=== PATIENT | male | born 1945 | race Caucasian/White ===

== ENCOUNTER 2016-11-19 05:12 | Emergency (ER) | payer BC ==
[~2016-11-19] VITALS: Ht 170.2 cm; Wt 81.9 kg
[~2016-11-19 05:12] MED LIST: ASPI81TA28 PO; ATOR-24 PO; LISI-725 PO; LPR25 PO; MELO15TA3 PO; MULT-506 PO; TRAZ50TA35 PO
[2016-11-19 05:14] VITALS: Ht 170.2 cm; Wt 81.9 kg
[2016-11-19] MEDS ORDERED: ACETAMINOPHEN 500 MG TAB PO STA (05:31)
[2016-11-19] MEDS ORDERED: SODIUM CHLORIDE 0.9% 1000ML 1,000 ML IV STA ×2 (05:31→06:34)
--- NOTE | 2016-11-19 05:41 | EMERGENCY ROOM VISIT NOTE ---
History First contact with patient: 05:24 Chief Complaint: FEVER Stated Complaint: FEVER, NAUSEA X 2WKS History of Present Illness The patient is a 71 year old male who presents to the Emergency Room for evaluation of persistent viral like illness. He notes about 1-2 weeks of fatigue, body aches and nausea. Associated with fevers, weakness, lack of appetite and mild headache. Using Tylenol periodically for discomfort/fever. Seen by PCP several times over the last week with labs which he notes were unremarkable. Admits that he had rash over palms of hands last week which PCP treated with steroids which resolved them. Denies syncope, cp, sob, neck pain/ stiffness, nor other symptoms. Admits frequent bug bites and lives in [place]. No diarrhea/urinary symptoms. Nothing makes better nor worse. No immunocompromised issues. Patient had MOS surgery to right face/nose with no swelling, drainage, pain. Is not on any antibiotics. Review of Systems See HPI for pertinent positives & negatives. A total of 10 systems reviewed and were otherwise negative. Past Medical/Surgical History Medical Problems: (1) History of hypertension Surgical Problems: (1) H/O hernia repair (2) H/O shoulder surgery (3) S/P prostatectomy Family History Cancer Hypertension Social History Smoking Status: Never Smoker Alcohol Use: occasionally Drug Use: none Marital Status: single Housing Status: lives with family Occupation Status: employed Current/Historical Medications Scheduled Aspirin (Aspirin Ec), 81 MG PO DAILY Atorvastatin (Lipitor), 40 MG PO DAILY Doxycycline Hyclate (Morgidox [id number]), 100 MG PO BID Hydroxyzine Hcl (Atarax), 25 MG PO TID Lisinopril (Zestril), 20 MG PO QAM Metoprolol Tartrate (Lopressor), 25 MG PO BID Multivitamin (Multivitamin), 1 TAB PO QAM Prednisone (Deltasone), 20 MG PO DAILY/UD Trazodone Hcl (Trazodone), 50 MG PO HS Scheduled PRN Meloxicam (Mobic), 15 MG PO DAILY PRN for Pain Physical Exam Vital Signs Date Time Temp Pulse Resp B/P (MAP) Pulse Ox O2 Delivery O2 Flow Rate FiO2 11/19/16 08:48 70 18 130/88 97 11/19/16 06:31 37.6 83 18 135/87 97 Room Air 11/19/16 05:14 38.1 93 20 161/111 97 Room Air Physical Exam GENERAL: Patient is anxious appearing and in no acute distress. HEENT: No acute trauma, normocephalic atraumatic, mucous membranes moist, no nasal congestion, no scleral icterus. NECK: No stridor, no adenopathy, no meningismus, trachea is midline. LUNGS: No dyspnea. Clear to auscultation and equal bilaterally. No wheeze, no rhonchi. HEART: Regular rate and rhythm. No murmurs, rubs, gallops appreciated. ABDOMEN: Soft, nontender, bowel sounds positive, no masses appreciated, no peritonitis. BACK: No midline tenderness, no CVA tenderness EXTREMITIES: Normal motion all extremities, no cyanosis, no edema. NEUROLOGIC: Alert and oriented, no acute motor or sensory deficits, no focal weakness, cranial nerves grossly intact. SKIN: Bandage to right maximally and nose s/p recent MOS surgery. No rash, no jaundice, no diaphoresis. Medical Decision & Procedures ER Provider Diagnostic Interpretation: X ray results are stated below per my interpretation: Chest: 1 view: No infiltrate, no effusion, normal cardiac border. Laboratory Results 11/19/16 05:55 Red Blood Count 4.66, Mean Corpuscular Volume 92.3, Mean Corpuscular Hemoglobin 32.4, Mean Corpuscular Hemoglobin Concent 35.1, Mean Platelet Volume 10.8, Neutrophils (%) (Auto) 68.7, Lymphocytes (%) (Auto) 20.5, Monocytes (%) (Auto) 9.6, Eosinophils (%) (Auto) 0.2, Basophils (%) (Auto) 0.4, Neutrophils # (Auto) 3.72, Lymphocytes # (Auto) 1.11, Monocytes # (Auto) 0.52, Eosinophils # (Auto) 0.01, Basophils # (Auto) 0.02 11/19/16 05:55 Test 11/19/16 05:42 11/19/16 05:55 11/19/16 06:00 11/19/16 06:47 Urine Color DK YELLOW Urine Appearance CLEAR (CLEAR) Urine pH 6.0 (4.5-7.5) Urine Specific [place] 1.027 (1.000-1.030) Urine Protein 2+ (NEG) Urine Glucose (UA) NEG (NEG) Urine Ketones TRACE (NEG) Urine Occult Blood 2+ (NEG) Urine Nitrite NEG (NEG) Urine Bilirubin NEG (NEG) Urine Urobilinogen NEG (NEG) Urine Leukocyte Esterase NEG (NEG) Urine WBC (Auto) 1-5 /hpf (0-5) Urine RBC (Auto) 10-30 /hpf (0-4) Urine Hyaline Casts (Auto) 1-5 /lpf (0-5) Urine Epithelial Cells (Auto) 10-20 /lpf (0-5) Urine Bacteria (Auto) NEG (NEG) White Blood Count 5.41 K/uL (4.8-10.8) Red Blood Count 4.66 M/uL (4.7-6.1) Hemoglobin 15.1 g/dL (14.0-18.0) Hematocrit 43.0 % (42-52) Mean Corpuscular Volume 92.3 fL (80-100) Mean Corpuscular Hemoglobin 32.4 pg (25-34) Mean Corpuscular Hemoglobin Concent 35.1 g/dl (32-36) Platelet Count 71 K/uL (130-400) Mean Platelet Volume 10.8 fL (7.4-10.4) Neutrophils (%) (Auto) 68.7 % Lymphocytes (%) (Auto) 20.5 % Monocytes (%) (Auto) 9.6 % Eosinophils (%) (Auto) 0.2 % Basophils (%) (Auto) 0.4 % Neutrophils # (Auto) 3.72 K/uL (1.4-6.5) Lymphocytes # (Auto) 1.11 K/uL (1.2-3.4) Monocytes # (Auto) 0.52 K/uL (0.11-0.59) Eosinophils # (Auto) 0.01 K/uL (0-0.5) Basophils # (Auto) 0.02 K/uL (0-0.2) RDW Standard Deviation 47.7 fL (36.4-46.3) RDW Coefficient of Variation 14.1 % (11.5-14.5) Immature Granulocyte % (Auto) 0.6 % Immature Granulocyte # (Auto) 0.03 K/uL (0.00-0.02) Blood Smear Review Platelet Estimate DECREASED Red Blood Cell Morphology Unremarkable Erythrocyte Sedimentation Rate 19 mm/hr (0-14) Anion Gap 8.0 mmol/L (3-11) Est Creatinine Clear Calc Drug Dose 64.0 ml/min Estimated GFR () 78.4 Estimated GFR (Non- 67.7 BUN/Creatinine Ratio 15.0 (10-20) Calcium Level 8.0 mg/dl (8.5-10.1) Magnesium Level 1.8 mg/dl (1.8-2.4) Total Bilirubin 1.5 mg/dl (0.2-1) Direct Bilirubin 0.3 mg/dl (0-0.2) Aspartate Amino Transf (AST/SGOT) 38 U/L (15-37) Alanine Aminotransferase (ALT/SGPT) 59 U/L (12-78) Alkaline Phosphatase 77 U/L (45-117) Total Creatine Kinase 58 U/L (39-308) Creatine Kinase MB 1.0 ng/ml (0.5-3.6) Creatine Kinase MB Ratio 1.7 (0-3.0) Troponin I < 0.015 ng/ml (0-0.045) C-Reactive Protein 7.20 mg/dl (0-0.29) Total Protein 6.7 gm/dl (6.4-8.2) Albumin 2.8 gm/dl (3.4-5.0) Bedside Lactic Acid Venous 0.88 mmol/L (0.90-1.70) Prothrombin Time 12.1 SECONDS (9.0-12.0) Prothromb Time International Ratio 1.1 (0.9-1.1) Activated Partial Thromboplast Time 29.3 SECONDS (21.0-31.0) Partial Thromboplastin Ratio 1.1 Lyme Disease IgG Antibody NEG (NEG) Lyme Disease IgM Antibody NEG (NEG) Test 11/19/16 08:17 Medications Administered Medications (Trade) Dose Ordered Sig/Thierry Route Start Time Stop Time Status Last Admin Dose Admin Sodium Chloride 1,000 ml @ 999 mls/hr Q1H1M STAT IV 11/19/16 05:31 11/19/16 06:31 DC 11/19/16 05:53 999 MLS/HR Acetaminophen (Tylenol Tab) 1,000 mg NOW STAT PO 11/19/16 05:31 11/19/16 05:33 DC 11/19/16 05:54 1,000 MG Sodium Chloride 1,000 ml @ 999 mls/hr Q1H1M STAT IV 7/22/17 06:34 11/19/16 07:34 DC 11/19/16 07:10 999 MLS/HR Doxycycline Hyclate (Vibramycin Cap) 100 mg ONE STAT PO 11/19/16 08:01 11/19/16 08:02 DC 11/19/16 08:47 100 MG ECG Indication: nausea Rate (beats per minute): 90 Rhythm: normal sinus Findings: no acute ischemic change, no ectopy Medical Decision Differential: Viral, Pharyngitis, Cellulitis, Pneumonia, Influenza, Meningitis, Sepsis, Bacteremia, UTI/Pyelonephritis, Endocrine, Toxicologic, amongst other pathologies entertained. 71 yr old male with diffuse complaints with symptoms ongoing over the last week or two and already seen several times by PCP with labs done as outpatient. Treated with Prednisone due to rash that had been on palms of hands (now resolved). He has not been on Abx. He is febrile but overall looks well. Labs obtained including Lyme/Ehrl/RPR. Also blood cultures along with lactic acid which is negative. No significant murmur appreciated. Abdominal exam is benign. Lungs clear and CXR unremarkable. He has no evidence nuchal rigidity and exam is not consistent with meningitis. I do not feel LP indicated at this time. Awaiting lab return when signed out to Dr Justin. Medication Reconcilliation Current Medication List: was personally reviewed by me Blood Pressure Screening Patient's blood pressure: Elevated blood pressure Blood pressure disposition: Referred to PCP Impression Primary Impression: Fever Additional Impressions: Nausea Hypertension Thrombocytopenia Departure Information Dispostion Home / Self-Care Condition GOOD Prescriptions Doxycycline Hyclate (MORGIDOX [id number]) 100 Mg Cap 100 MG PO BID, #14 TAB Prov: Radha Justin M.D. 11/19/16 Referrals Martell Cantu DO (PCP) Patient Instructions [facility] Additional Instructions Your blood counts reveal a low Platelet count. You should follow closely with your primary care provider and have this rechecked as soon as possible. Extensive testing was done which was unremarkable, however there are limitations to that which can be done in the Emergency Department. You have been examined and treated today on an emergency basis only. This is not a substitute for, or an effort to provide, complete comprehensive medical care. It is impossible to recognize and treat all injuries or illnesses in a single emergency department visit. It is therefore important that you follow up closely with your Primary Physician. Call as soon as possible for an appointment so you can review all labs, imaging and other testing that you had. Return to Emergency Department, call 911 or seek immediate medical attention if you feel your symptoms are worsening. Problem Qualifiers
[2016-11-19] MEDS ORDERED: PRED-603 PO (06:08)
[2016-11-19] MEDS ORDERED: HYDR-3124 PO (06:21)
[2016-11-19 06:25] LABS: URINE APPEARANCE CLEAR (CLEAR); URINE BILIRUBIN NEG (NEG); URINE COLOR DK YELLOW; URINE SPECIFIC GRAVITY 1.027 (1.000-1.030); ZZUR CULT IF INDIC CLEAN CATCH NO
[2016-11-19 06:26] LABS: URINE NITRITE NEG (NEG); UROBILINOGEN NEG (NEG)
[2016-11-19 06:29] LABS: MANUAL MICROSCOPIC REQUIRED? NO; REVIEW REQ? NO
[2016-11-19 06:31] VITALS: TEMP 37.6
[2016-11-19 06:40] LABS: MEAN CELL VOLUME 92.3 fL (80-100); MEAN CORPUSCULAR HEMOGLOBIN 32.4 pg (25-34); MEAN CORPUSCULAR HGB CONC 35.1 g/dl (32-36); MEAN PLATELET VOLUME 10.8 fL (7.4-10.4); PLATELET COUNT 71 K/uL (130-400); RED BLOOD COUNT 4.66 M/uL (4.7-6.1); WHITE BLOOD COUNT 5.41 K/uL (4.8-10.8)
[2016-11-19 06:41] LABS: BASO % 0.4 %; BASO ABS # 0.02 K/uL (0-0.2); COMPLETE YES; EOS % 0.2 %; IG% 0.6 %; LYMPH % 20.5 %; LYMPH ABS # 1.11 K/uL (1.2-3.4); MONO % 9.6 %; PLT ESTIMATE DECREASED
[2016-11-19 07:04] LABS: ALKALINE PHOSPHATASE 77 U/L (45-117); ALT/SGPT 59 U/L (12-78); BLOOD UREA NITROGEN 16 mg/dl (7-18); CARBON DIOXIDE 24 mmol/L (21-32); CHLORIDE 104 mmol/L (98-107); GLUCOSE 100 mg/dl (70-99)
[2016-11-19 07:15] LABS: INR 1.1 (0.9-1.1); PARTIAL THROMBOPLASTIN RATIO 1.1; PROTHROMBIN TIME (PATIENT) 12.1 SECONDS (9.0-12.0)
[2016-11-19 07:33] LABS: SODIUM 136 mmol/L (136-145)
[2016-11-19 07:41] LABS: LYME DISEASE AB IGG NEG (NEG); LYME DISEASE AB IGM NEG (NEG)
[2016-11-19 07:42] LABS: AST/SGOT 38 U/L (15-37); CKMB/CK RATIO 1.7 (0-3.0); MAGNESIUM 1.8 mg/dl (1.8-2.4)
--- NOTE | 2016-11-19 07:44 | DIAGNOSTIC IMAGING REPORT ---
CHEST ONE VIEW PORTABLE CLINICAL HISTORY: Fever. Nausea. COMPARISON STUDY: Chest radiograph July 23, 2015. FINDINGS: There is no pneumothorax or pleural effusion. There is no consolidation to suggest pneumonia. Cardiomediastinal silhouette is normal. Left shoulder postoperative findings are noted. Severe osteoarthritis of the right glenohumeral joint is incidentally noted. IMPRESSION: No acute cardiopulmonary findings. Electronically signed by: Stewart Patel M.D. 11/19/2016 7:43 AM Dictated Date/Time: 11/19/2016 7:42 AM
[2016-11-19] MEDS ORDERED: DOXYCYCLINE HYCLATE 100 MG CAP PO STA (08:01)
[2016-11-19] MEDS ORDERED: DOXY1CAP PO (08:15)
[2016-11-19 08:48] VITALS: BP 130/88; PULSE 70; O2SAT 97
[2016-11-19 09:36] LABS: NEUT % 68.7 %
--- NOTE | 2016-11-19 14:26 | EMERGENCY ROOM VISIT NOTE ---
ED Visit Note First contact with patient: 07:06 This patient was evaluated and appeared to be in no significant distress. I did receive the patient in signout at the change of shift from Dr. Hsieh. Laboratory work reveals a thrombocytopenia, the patient has been suffering from low-grade fevers. He has no complaints of pain at this time. There is a concern over a tickborne illness such as anaplasmosis or [place] spotted fever. I did speak with Dr. Qiu of infectious disease for recommendations regarding workup. Most studies are pending at this time, the wind titers are negative. Patient will be placed on doxycycline 100 mg twice a day for 14 days. He was encouraged to follow up with his PCP this week for reevaluation and test results. He will return to the ER for worsening of symptoms or any medical concerns. Diagnosis: Fever, thrombocytopenia
[2016-11-22 01:13] LABS: RAPID PLASMA REAGIN NONREACTIVE (NONREACT)
[2016-11-26 21:59] LABS: EHRLICHIA CHAFF IGG AB <1:64 (<1:64); EHRLICHIA CHAFF IGM AB <1:20 (<1:20); R. TYPHI IgG AB Not Detected (Not Detected); R. TYPHI IgM AB Not Detected (Not Detected); RMSF IgM AB Not Detected (Not Detected)
[2016-11-30 20:34] LABS: ANAPLASMA PHAGOCYTOPHIL DNA DETECTED; ANAPLASMA PHAGOCYTOPHIL IGM <1:20 (<1:20); ANAPLASMA PHAGOCYTOPHIL INTERP Past Infection
== END 2016-11-19 08:49 | disposition home or self-care (01) ==
LOC: C.EDB 05:14
DX: R50.9 Fever, unspecified (principal); R11.0 Nausea; I10 Essential (primary) hypertension; D69.6 Thrombocytopenia, unspecified; Z90.79 Acquired absence of other genital organ(s); Z98.890 Other specified postprocedural states; Z82.49 Family history of ischemic heart disease and other diseases of the circulatory system; Z79.82 Long term (current) use of aspirin; Z79.899 Other long term (current) drug therapy

== ENCOUNTER → 2016-11-22 | Outpatient (CLI) | payer BC ==
[~2016-11-22] MED LIST changes: +DOXY1CAP PO; +HYDR-3124 PO; +PRED-603 PO
[2016-11-22 14:03] LABS: HEMATOCRIT 42.6 % (42-52); MEAN CELL VOLUME 92.8 fL (80-100); MEAN CORPUSCULAR HEMOGLOBIN 33.3 pg (25-34); MEAN CORPUSCULAR HGB CONC 35.9 g/dl (32-36); RED BLOOD COUNT 4.59 M/uL (4.7-6.1); WHITE BLOOD COUNT 11.03 K/uL (4.8-10.8)
[2016-11-22 14:23] LABS: PLATELET COUNT 74 K/uL (130-400)
[2016-11-22 15:17] LABS: BASO % 0.5 %; BASO ABS # 0.06 K/uL (0-0.2); COMPLETE YES; ECHINOCYTES 1+; EOS % 0.7 %; IG% 0.2 %; LYMPH % 51.4 %; LYMPH ABS # 5.67 K/uL (1.2-3.4); MEAN PLATELET VOLUME 11.2 fL (7.4-10.4); MONO % 6.4 %; NEUT % 40.8 %
== END | disposition home or self-care (01) ==
LOC: C.LABSPEC 13:32
PROVIDERS: ATTEND Family Medicine
DX: D69.6 Thrombocytopenia, unspecified (principal)

== ENCOUNTER 2017-07-18 10:51 | Inpatient (IN) | payer BC, OTHER ==
[2017-07-10 08:05] VITALS: BMI 29.0
--- NOTE | 2017-07-10 08:42 | PAT Medication Instructions ---
Service Date Jul 10, 2017. Current Home Medication List Aspirin (Aspirin Ec), 81 MG PO QAM Atorvastatin (Lipitor), 40 MG PO QPM Lisinopril (Zestril), 20 MG PO QAM Meloxicam (Mobic), 15 MG PO QPM Metoprolol Tartrate (Lopressor), 25 MG PO BID Multivitamin (Multivitamin), 1 TAB PO QAM Trazodone Hcl (Trazodone), 50 MG PO HS Medication Instructions For Your Scheduled Surgery -Contact your surgeon for instructions for: Meloxicam (Mobic), 15 MG PO QPM - Hold the following medications the morning of surgery: Lisinopril (Zestril), 20 MG PO QAM Multivitamin (Multivitamin), 1 TAB PO QAM - Take the following medications the morning of surgery with a sip of water: Aspirin (Aspirin Ec), 81 MG PO QAM Metoprolol Tartrate (Lopressor), 25 MG PO BID - Take the following medications as scheduled the night before surgery: Atorvastatin (Lipitor), 40 MG PO QPM Metoprolol Tartrate (Lopressor), 25 MG PO BID Trazodone Hcl (Trazodone), 50 MG PO HS If you have any questions please call us at [phone] or [phone] or [phone]
[2017-07-10 10:14] LABS: BASO % 0.6 %; BASO ABS # 0.05 K/uL (0-0.2); EOS % 7.1 %; EOS ABS # 0.63 K/uL (0-0.5); HEMATOCRIT 47.9 % (42-52); HEMOGLOBIN 16.9 g/dL (14.0-18.0); IG# 0.04 K/uL (0.00-0.02); LYMPH % 32.7 %; LYMPH ABS # 2.89 K/uL (1.2-3.4); MEAN CELL VOLUME 94.5 fL (80-100); MEAN CORPUSCULAR HEMOGLOBIN 33.3 pg (25-34); MEAN CORPUSCULAR HGB CONC 35.3 g/dl (32-36); MEAN PLATELET VOLUME 10.8 fL (7.4-10.4); MONO % 9.5 %; MONO ABS # 0.84 K/uL (0.11-0.59); NEUT % 49.6 %; NEUT ABS # 4.39 K/uL (1.4-6.5); PLATELET COUNT 150 K/uL (130-400); RED CELL DISTRIBUTION WIDTH CV 13.5 % (11.5-14.5); RED CELL DISTRIBUTION WIDTH SD 46.6 fL (36.4-46.3); WHITE BLOOD COUNT 8.84 K/uL (4.8-10.8)
[2017-07-10 10:24] LABS: PTT PATIENT 25.7 SECONDS (21.0-31.0)
[2017-07-10 10:59] LABS: ALBUMIN 3.8 gm/dl (3.4-5.0); CALCIUM 8.9 mg/dl (8.5-10.1); CREATININE 1.19 mg/dl (0.60-1.40); POTASSIUM 5.1 mmol/L (3.5-5.1)
[2017-07-10 11:02] LABS: HEMOGLOBIN A1C 5.5 % (4.5-5.6)
--- NOTE | 2017-07-11 15:19 | HISTORY & PHYSICAL EXAMINATION ---
DATE OF ADMISSION: 07/18/2017 CHIEF COMPLAINT: Right shoulder pain. HISTORY OF PRESENT ILLNESS: Mr. Gutierrez is a 71-year-old male with a 5-year history of right shoulder pain. The patient rates his pain a 6/10. He also has a significant decreased range of motion. He has had NSAIDs over the years without relief. He has failed conservative treatment and is scheduled for a right total shoulder versus resurfacing. PAST MEDICAL HISTORY: Hypertension, hypercholesterolemia and heart disease. He denies diabetes or DVT. PAST SURGICAL HISTORY: Left shoulder surgery, prostatectomy and hernia repair. SOCIAL HISTORY: The patient drinks 6 drinks per week. He denies tobacco use. He lives in a 2-maurilio home. 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 FAMILY HISTORY: Negative for DVT. MEDICATIONS: Lisinopril 20 mg, trazodone 50 mg, atorvastatin, Meloxicam and baby aspirin, Dilt/CD 120 mg daily. ALLERGIES: Indocin. REVIEW OF SYSTEMS: See HPI. Ten other systems reviewed, all negative. PHYSICAL EXAMINATION: VITAL SIGNS: Height 5 feet 7 inches, weight 184 pounds, BMI 29. GENERAL: This is a well-developed, well-nourished male who is alert and oriented x3. Mood and affect are appropriate. HEENT: Normocephalic, atraumatic. Mucous membranes are moist and intact. NECK: Supple without lymphadenopathy. HEART: Regular rate and rhythm without murmurs, rubs or gallops. LUNGS: Clear to auscultation without wheezes or rhonchi. ABDOMEN: Soft and nontender. Bowel sounds are equal and active. EXTREMITIES: No ecchymosis, redness or warmth. Range of motion of the shoulder is significantly decreased both in abduction and internal rotation. He is neurovascularly intact. X-RAY EXAMINATION: All 3 views of the shoulder confirmed joint space narrowing and osteophyte formation. IMPRESSION: Degenerative joint disease, right shoulder. PLAN: The patient will be admitted for a right total shoulder versus resurfacing with Dr. Rajput. [place]
[~2017-07-18] VITALS: Ht 170.2 cm; Wt 84.2 kg
[2017-07-18] MEDS: TRANEXAMIC ACID INJ 1,000 MG x 2 Bags IV SCH ×4 (06:00→06:30)
[~2017-07-18 10:51] MED LIST changes: +ACETAMINOPHEN 500 MG TAB PO SCH; +ATROPINE SULFATE 0.1 MG/ML 5ML SYR IV PRN; +CEFAZOLIN 2000MG IV PUSH 15 ML IV SCH; +CeleBREX 200 MG CAP PO SCH; +DEXAMETHASONE 4 MG TAB PO SCH; +DEXAMETHASONE SOD INJ 4 MG/ML VIAL ONE; -DOXY1CAP PO; +EpHEDrine SULFATE INJ 50 MG/ML AMP IV PRN; +FAMOTIDINE 20 MG TAB PO SCH; +FENTANYL CITRATE INJ 50 MCG/1 ML 2 ML VIAL IV PRN; +GABAPENTIN 300 MG CAP PO SCH; -HYDR-3124 PO; +HYDROmorphone INJ 1 MG/ML SYR IV PRN; +LABETALOL HCL IV 5 MG/ML 20ML IV PRN; +LACTATED RINGER'S 1000ML 1,000 ML IV SCH; +LACTATED RINGER'S 1000ML IV SCH; -MELO15TA3 PO; +MELO7.5T5 PO; +MEPERIDINE HCL 25 MG/ML CARP IV PRN; +METOCLOPRAMIDE HCL 10 MG TAB PO SCH; +ONDANSETRON INJ 2 MG/ML 2 ML VIAL IV PRN; -PRED-603 PO; +ROPIVACAINE 0.5% 5 MG/ML 30 ML VIAL ONE; +ROPIVACAINE 5MG/ML 30 ML 150 MG, BUPIVACAINE 0.5% MPF INJ 30 ML, EpINEphrine HCL INJ 0.... INFIL SCH
[2017-07-18] MEDS ORDERED: DEXAMETHASONE SOD INJ 4 MG/ML VIAL ONE (11:11)
[2017-07-18] MEDS ORDERED: ONDANSETRON INJ 2 MG/ML 2 ML VIAL ONE (11:11)
[2017-07-18] MEDS ORDERED: PROPOFOL IV EMULSION 10 MG/ML 20 ML VIAL IV ONE (11:11)
[2017-07-18] MEDS ORDERED: LIDOCAINE HCL 2% 2 ML VIAL (20MG/ML) ONE (11:11)
[2017-07-18] MEDS ORDERED: MIDAZOLAM HCL 1 MG/ML 2ML VIAL ONE (11:11)
[2017-07-18] MEDS ORDERED: PHENYLEPHRINE 100MCG/ML 5ML SYR ONE (11:11)
[2017-07-18] MEDS ORDERED: EpHEDrine SULFATE 50MG/5ML SYR ONE (11:11)
[2017-07-18] MEDS ORDERED: FENTANYL CITRATE INJ 50 MCG/1 ML 2 ML VIAL ONE (11:12)
--- NOTE | 2017-07-18 12:02 | History & Physical Bridge Note ---
H&P Re-Evaluation Bridge Note: I have examined the patient, reviewed the History & Physical and in the interval since the performance of the History & Physical I have noted the following changes of clinical significance: No changes noted
[2017-07-18 12:21] VITALS: BP 140/100; PULSE 77; TEMP 36.8; O2SAT 97; Ht 170.2 cm; Wt 84.2 kg
[2017-07-18] MEDS ORDERED: THROMBIN FOR SOLN 20000 UNIT KIT ONE (12:49)
[2017-07-18] MEDS ORDERED: BACITRACIN 50000 UNIT VIAL ONE (12:49)
[2017-07-18] MEDS ORDERED: ROCURONIUM BROMIDE 10 MG/ML 5 ML VIAL IV ONE (14:15)
[2017-07-18] MEDS ORDERED: NEOSTIGMINE METHYLSULFATE 5 MG/5 ML SYR ONE (14:30)
[2017-07-18] MEDS ORDERED: GLYCOPYRROLATE INJ 0.2 MG/ML VIAL ONE (14:30)
--- NOTE | 2017-07-18 14:52 | [facility] Post Operative Brief Note ---
Immediate Operative Summary Operative Date Jul 18, 2017. Pre-Operative Diagnosis Degenerative joint disease right shoulder. Post-Operative Diagnosis Same as preoperative diagnosis. Procedure(s) Performed Right Shoulder Tournier Resurfacing 43x[address] Rajput Backend Developer Surgeon(s) Sang Perkins PA-C Estimated Blood Loss 25ml Findings Consistent with Post-Op Diagnosis Specimens none per surgeon Anesthesia Type General Complication(s) none Disposition Disposition: Recovery Room / PACU
--- NOTE | 2017-07-18 14:55 | [facility] Operative Report ---
Operative Report Operative Date Jul 18, 2017. Pre-Operative Diagnosis Degenerative joint disease right shoulder. Post-Operative Diagnosis Same as preoperative diagnosis. Procedure(s) Performed Right Shoulder Tournier Resurfacing 43x[address] Rajput Bottle Dealer Surgeon(s) Sang Perkins PA-C Estimated Blood Loss 25ml Findings With severe end-stage degenerative changes involving the glenohumeral joint Patient presents with severe end-stage degenerative changes glenohumeral joint DJD subchondral sclerosis osteophytes marginal osteophytes Specimens none per surgeon Anesthesia Type General Complication(s) none Disposition Recovery Room / PACU Indications Patient presents after failing attempts at conservative management including physical therapy anti-inflammatories relative rest injections patient with severe global humeral DJD tournier hemiarthroplasty. Description of Procedure After proper prepping draping the right shoulder region anterior deltopectoral incision was made dissection carried down through subcu tissue to the root of the deltopectoral the cephalic vein was gently retracted lateralward with the deltoid anterior subscapularis was reflected off of the humeral head of biceps tendon was protected and retracted the humeral head was then subsequently externally rotated osteophytes were removed the size was dried to a size 43 x 12 gave excellent anatomic coverage was excellent stability substrate was reamed utilizing standard reverse femoral osteophytes removed utilizing number 5F FiberWire the sutures were placed to the anterior cortical aspect and to repair the subscapularis the final component was also brought to the field was gently more fit and tamped into position excellent stability was noted Mattix hemostasis obtained to maintain wounds are given cosmos of sterile saline solution subsequently the anterior subscapularis repair as well as rotator interval utilized #5 FiberWire and #0 Ethibond of the Lipitor was closed #2-0 Vicryl skin was closed with 3-0 Vicryl and skin clips a sterile compressive dressing was placed as well as a shoulder immobilizer based on residual taken recovery in stable condition Sang SANCHEZ was necessary for prepping draping retraction and closure of the fascia subcu skin was necessary for the case I attest to the content of the Intraoperative Record and any orders documented therein. Any exceptions are noted below.
[2017-07-18] MEDS ORDERED: D5W AND 1/2NSS + 20MEQ KCL 1,000 ML IV SCH (15:18)
[2017-07-18] MEDS ORDERED: ONDANSETRON INJ 2 MG/ML 2 ML VIAL IV PRN (15:30)
[2017-07-18] MEDS ORDERED: TRAMADOL HCL 50 MG TAB PO PRN (15:30)
[2017-07-18] MEDS ORDERED: MoRPHine SULFATE 2 MG/ML CARP IV PRN (15:30)
[2017-07-18] MEDS ORDERED: ALUMINUM/MAGNESIUM SUSP 30 ML UDC PO PRN (15:30)
[2017-07-18] MEDS ORDERED: MAGNESIUM HYDROXIDE SUSP 30 ML UDC PO PRN (15:30)
--- NOTE | 2017-07-18 16:04 | DIAGNOSTIC IMAGING REPORT ---
R SHOULDER MIN 2 VIEWS ROUTINE HISTORY: 71 years-old Male Post shoulder surgery right shoulder arthroplasty. Degenerative joint disease of the right shoulder COMPARISON: Chest radiograph 11/19/2016 TECHNIQUE: 2 views of the right shoulder. FINDINGS: Right shoulder arthroplasty with satisfactory alignment. The bones appear mildly demineralized. Moderate degenerative changes about the right AC joint. Expected postsurgical soft tissue swelling and deep tissue air about the right shoulder with skin jose. No acute fracture or retained foreign body identified. IMPRESSION: Right shoulder arthroplasty with satisfactory alignment. The above report was generated using voice recognition software. It may contain grammatical, syntax or spelling errors. Electronically signed by: Armaan Mancera M.D. 07/18/2017 4:03 PM Dictated Date/Time: 07/18/2017 4:01 PM
--- NOTE | 2017-07-18 16:11 | Anesthesiology Progress Note ---
Anesthesia Post Op Note Date & Time Jul 18, 2017 at 16:11 Vital Signs Pain Intensity: 0 Vital Signs Past 12 Hours Date Time Temp Pulse Resp B/P (MAP) Pulse Ox O2 Delivery O2 Flow Rate FiO2 07/18/17 16:05 36.5 72 16 148/90 98 Room Air 07/18/17 15:55 36.5 72 16 154/96 98 Room Air 07/18/17 15:45 36.5 79 16 149/96 96 Room Air 07/18/17 15:35 81 16 138/96 96 Room Air 07/18/17 15:25 87 16 131/90 100 Oxymask 10 07/18/17 15:15 78 16 142/94 100 Oxymask 10 07/18/17 15:09 36.4 87 16 170/99 100 Oxymask 10 07/18/17 12:21 36.8 77 16 140/100 97 Room Air Notes Mental Status: alert / awake / arousable, participated in evaluation Pt Amnestic to Procedure: Yes Nausea / Vomiting: adequately controlled Pain: adequately controlled Airway Patency, RR, SpO2: stable & adequate BP & HR: stable & adequate Hydration State: stable & adequate Anesthetic Complications: no major complications apparent
[2017-07-18 17:00] VITALS: BP 159/82; PULSE 83; TEMP 36.6; O2SAT 98
[2017-07-18 17:30] VITALS: BP 151/96; PULSE 79; TEMP 36.6; O2SAT 96
[2017-07-18 18:02] VITALS: BP 158/102; PULSE 86; TEMP 36.9; O2SAT 96
[2017-07-18 19:19] VITALS: BP 177/105; PULSE 105; TEMP 36.9; O2SAT 96
[2017-07-18 20:15] VITALS: BP 160/94; PULSE 99; TEMP 36.6; O2SAT 96
[2017-07-18] MEDS: D5W AND 1/2NSS 1,000 ML IV SCH (20:43)
[2017-07-18] MEDS: METOPROLOL TARTRATE 25 MG TAB PO SCH (20:44)
[2017-07-18] MEDS: OXYCODONE HCL IR 5 MG TAB (IMMEDIATE RELEASE) PO PRN (20:45)
[2017-07-18] MEDS: DOCUSATE SODIUM 100 MG CAP PO SCH (20:45)
[2017-07-18] MEDS: ACETAMINOPHEN 500 MG TAB PO SCH (20:46)
[2017-07-18] MEDS: CEFAZOLIN IV 2,000 MG in SYRINGE 0 ML IV SCH (20:49)
[2017-07-18] MEDS ORDERED: TRAZODONE HCL 50 MG TAB PO SCH (21:00)
[2017-07-18] MEDS ORDERED: ATORVASTATIN 40 MG TAB PO SCH (21:00)
[2017-07-19] VITALS (7 sets, daily range): BP systolic 136–157; BP diastolic 88–107; PULSE 70–80; TEMP 36.4–36.8; O2SAT 93–99
[2017-07-19] MEDS: OXYCODONE HCL IR 5 MG TAB (IMMEDIATE RELEASE) PO PRN ×4 (02:48→15:52)
[2017-07-19] MEDS: CEFAZOLIN IV 2,000 MG in SYRINGE 0 ML IV SCH (05:04)
[2017-07-19] MEDS: ACETAMINOPHEN 500 MG TAB PO SCH ×2 (05:04→13:50)
[2017-07-19] MEDS: D5W AND 1/2NSS 1,000 ML IV SCH ×2 (05:04→14:07)
--- NOTE | 2017-07-19 06:59 | Orthopedic Progress Note ---
Orthopedic Progress Note Date of Service Jul 19, 2017. Subjective Post OP Day: 1 Reports: feeling well, pain controlled w PO medications, Denies: complaints, chest pain, SOB, nausea / vomiting, light headedness Objective N/V intact, capillary refill less than 2 sec., dressing C/D/I, A&O x3 rad/med/ulnar nerves intact Date Time Temp Pulse Resp B/P (MAP) Pulse Ox O2 Delivery O2 Flow Rate FiO2 07/19/17 03:00 36.8 78 16 157/93 (114) 96 Room Air 07/19/17 00:39 36.7 76 16 143/88 (106) 96 Room Air 07/18/17 23:40 Room Air 07/18/17 20:15 36.6 99 18 160/94 (116) 96 Room Air 07/18/17 19:19 36.9 105 18 177/105 (129) 96 Room Air 07/18/17 18:02 36.9 86 18 158/102 (120) 96 Room Air 07/18/17 17:30 36.6 79 18 151/96 (114) 96 Room Air 07/18/17 17:00 Room Air 07/18/17 17:00 98 Room Air 07/18/17 17:00 36.6 83 16 159/82 (107) 98 Room Air 07/18/17 16:30 36.5 79 16 144/92 95 Room Air 07/18/17 16:15 36.5 72 16 145/97 98 Room Air 07/18/17 16:05 36.5 72 16 148/90 98 Room Air 07/18/17 15:55 36.5 72 16 154/96 98 Room Air 07/18/17 15:45 36.5 79 16 149/96 96 Room Air 07/18/17 15:35 81 16 138/96 96 Room Air 07/18/17 15:25 87 16 131/90 100 Oxymask 10 07/18/17 15:15 78 16 142/94 100 Oxymask 10 07/18/17 15:09 36.4 87 16 170/99 100 Oxymask 10 07/18/17 12:21 36.8 77 16 140/100 97 Room Air Laboratory Results 24 Hours: Test 07/19/17 06:48 Assessment & Plan Assessment: POD #1 s/p Right Shoulder Tournier Resurfacing 43x12 -pain well controlled -will plan for OPPT, discharge possibly later today after PT Discharge Planning Discharge Planning: home with oppt Therapy: Physical Therapy
--- NOTE | 2017-07-19 07:01 | Discharge Instructions ---
Discharge Instructions Date of Service Jul 19, 2017. Admission Reason for Admission: Right Shoulder Osteoarthritis Discharge Discharge Diagnosis / Problem: Right Shoulder Tournier Resurfacing 43x12 Discharge Goals Goal(s): Decrease discomfort, Improve function, Increase independence Activity Recommendations Activity Limitations: as noted below Shower/Bathe: may shower/bathe in 3 days, keep incision dry . Instructions / Follow-Up Instructions / Follow-Up ACTIVITY RECOMMENDATIONS: SELF CARE INSTRUCTIONS AFTER TOTAL SHOULDER ARTHROPLASTY A. You may do daily exercises as taught in physical therapy while in hospital. No lifting with the operative arm. Please schedule your outpatient physical therapy appointment to begin within 2-3 days after leaving the hospital. Specific restrictions will be written on your physical therapy prescription that is provided to you. B. You are to wear your sling/immobilizer at all times EXCEPT when performing your daily exercises, participating in physical therapy and for hygiene purposes. C. You may perform dry, daily dressing changes. Please keep your incision covered. You may shower 48 hours after surgery. Do not apply soap or any ointment/ lotions directly over incision. Do not soak incision in bath tub/swimming pool. D. You may use ice as needed to operative shoulder. SPECIAL CARE INSTRUCTIONS: MEDICATION INSTRUCTIONS: *It is recommended you take Aspirin 325mg daily for four weeks post-op. VERY IMPORTANT TO READ AND REVIEW A. There are a few signs you need to watch for after you are home. Call [facility] at [phone] if you experience any of the followin. Increased severe shoulder pain. Some pain is expected especially when you exercise. 2. Increased swelling in you shoulder or arm; pain or swelling in either upper extremity. 3. Any fluid drainage from the incision. 4. Shortness of breath or chest pain. B. Please call [facility] at [phone] if you have any questions or concerns about your operation or recovery. C. Call your physician if: 1. Temperature is greater than 101 degrees (F). 2. Pain is not relieved by prescribed pain medications. 3. Increase drainage or redness from incision. 4. Unanswered questions or concerns. FOLLOW UP VISIT: Please call [facility] at [phone] to schedule a follow up appointment with Dr. Rajput or his PA in 12-14 days from your surgery date. Current Hospital Diet Patient's current hospital diet: AHA Diet (Heart Healthy) Discharge Diet Recommended Diet: AHA Diet (Heart Healthy) Procedures Procedures Performed: Right Shoulder Tournier Resurfacing 43x12 Pending Studies Studies pending at discharge: no Laboratory Results Hemoglobin A1c Test 07/10/17 08:56 Range/Units Estimated Average Glucose 111 mg/dl Hemoglobin A1c 5.5 4.5-5.6 % Medical Emergencies . Who to Call and When: Medical Emergencies: If at any time you feel your situation is an emergency, please call 911 immediately. . Non-Emergent Contact Non-Emergency issues call your: Primary Care Provider, Surgeon . "Provider Documentation" section prepared by Anthony Sifuentes. . [place] Drug Monitoring Program Search Results: patient reviewed within database, no issues identified
[2017-07-19 07:13] LABS: HEMATOCRIT 44.7 % (42-52); HEMOGLOBIN 16.3 g/dL (14.0-18.0); MEAN CELL VOLUME 92.5 fL (80-100); MEAN CORPUSCULAR HEMOGLOBIN 33.7 pg (25-34); MEAN CORPUSCULAR HGB CONC 36.5 g/dl (32-36); PLATELET COUNT 139 K/uL (130-400); RED CELL DISTRIBUTION WIDTH CV 12.8 % (11.5-14.5); RED CELL DISTRIBUTION WIDTH SD 43.4 fL (36.4-46.3); WHITE BLOOD COUNT 15.73 K/uL (4.8-10.8)
[2017-07-19 07:37] LABS: CALCIUM 8.6 mg/dl (8.5-10.1); CREATININE 1.17 mg/dl (0.60-1.40); POTASSIUM 4.1 mmol/L (3.5-5.1)
[2017-07-19] MEDS: DOCUSATE SODIUM 100 MG CAP PO SCH (08:33)
[2017-07-19] MEDS: METOPROLOL TARTRATE 25 MG TAB PO SCH (08:33)
[2017-07-19] MEDS ORDERED: ASPIRIN 81 MG ECTAB PO SCH (09:00)
[2017-07-19] MEDS ORDERED: MULTIVITAMIN TAB PO SCH (09:00)
[2017-07-19] MEDS ORDERED: LISINOPRIL 20 MG TAB PO SCH (09:00)
--- NOTE | 2017-07-19 10:51 | Anesthesiology Progress Note ---
Anesthesia Post Op Note Date & Time Jul 19, 2017 at 10:51 Vital Signs Pain Intensity: 3.0 Vital Signs Past 12 Hours Date Time Temp Pulse Resp B/P (MAP) Pulse Ox O2 Delivery O2 Flow Rate FiO2 07/19/17 09:21 99 Room Air 07/19/17 09:09 137/91 (106) 07/19/17 07:51 36.4 80 18 150/107 (121) 99 Room Air 07/19/17 07:15 Room Air 07/19/17 03:00 36.8 78 16 157/93 (114) 96 Room Air 07/19/17 00:39 36.7 76 16 143/88 (106) 96 Room Air 07/18/17 23:40 Room Air Notes Mental Status: alert / awake / arousable, participated in evaluation Pt Amnestic to Procedure: Yes Nausea / Vomiting: adequately controlled Pain: adequately controlled Airway Patency, RR, SpO2: stable & adequate BP & HR: stable & adequate Hydration State: stable & adequate Anesthetic Complications: no major complications apparent
[2017-07-19] MEDS ORDERED: RXC5 PO (13:31)
[2017-07-19] MEDS ORDERED: CLB200 PO (13:31)
[2017-07-19] MEDS ORDERED: CLC100 PO (13:31)
[2017-07-19] MEDS ORDERED: ACET-24 PO (13:31)
[2017-07-19] MEDS ORDERED: ONDA-170 PO (13:31)
== END 2017-07-19 15:50 | disposition home or self-care (01) | DRG 508 ==
LOC: C.ACU 10:51 → C.3E 12:00 → ENRESERV 16:28
PROVIDERS: ADMIT Orthopaedic Surgery; ATTEND Orthopaedic Surgery
PROC: 0RUJ0JZ Supplement Right Shoulder Joint with Synthetic Substitute, Open Approach (ICD-10-PCS; principal; 2017-07-18 13:30)
DX: M19.011 Primary osteoarthritis, right shoulder (principal); M25.711 Osteophyte, right shoulder; I11.9 Hypertensive heart disease without heart failure; E78.00 Pure hypercholesterolemia, unspecified; Z79.899 Other long term (current) drug therapy; Z79.1 Long term (current) use of non-steroidal anti-inflammatories (NSAID); Z79.82 Long term (current) use of aspirin; Z88.6 Allergy status to analgesic agent

== ENCOUNTER → 2017-07-21 | Outpatient (CLI) | payer BC ==
[~2017-07-21] MED LIST changes: +ACET-1256 PO; +ACET-24 PO; -ACETAMINOPHEN 500 MG TAB PO SCH; -ATROPINE SULFATE 0.1 MG/ML 5ML SYR IV PRN; -CEFAZOLIN 2000MG IV PUSH 15 ML IV SCH; +CEPH500C PO; +CLB200 PO; +CLC100 PO; +CZR50 PO; -CeleBREX 200 MG CAP PO SCH; -DEXAMETHASONE 4 MG TAB PO SCH; -DEXAMETHASONE SOD INJ 4 MG/ML VIAL ONE; +DOCU100C31 PO; -EpHEDrine SULFATE INJ 50 MG/ML AMP IV PRN; -FAMOTIDINE 20 MG TAB PO SCH; -FENTANYL CITRATE INJ 50 MCG/1 ML 2 ML VIAL IV PRN; -GABAPENTIN 300 MG CAP PO SCH; -HYDROmorphone INJ 1 MG/ML SYR IV PRN; -LABETALOL HCL IV 5 MG/ML 20ML IV PRN; -LACTATED RINGER'S 1000ML 1,000 ML IV SCH; -LACTATED RINGER'S 1000ML IV SCH; -MELO7.5T5 PO; -MEPERIDINE HCL 25 MG/ML CARP IV PRN; -METOCLOPRAMIDE HCL 10 MG TAB PO SCH; +ONDA-170 PO; -ONDANSETRON INJ 2 MG/ML 2 ML VIAL IV PRN; +OXYC1CAP5 PO; -ROPIVACAINE 0.5% 5 MG/ML 30 ML VIAL ONE; -ROPIVACAINE 5MG/ML 30 ML 150 MG, BUPIVACAINE 0.5% MPF INJ 30 ML, EpINEphrine HCL INJ 0.... INFIL SCH; +RXC5 PO
[2017-07-21 16:44] LABS: BASO % 0.2 %; BASO ABS # 0.02 K/uL (0-0.2); EOS % 3.5 %; EOS ABS # 0.32 K/uL (0-0.5); HEMOGLOBIN 15.2 g/dL (14.0-18.0); IG# 0.03 K/uL (0.00-0.02); LYMPH % 18.2 %; LYMPH ABS # 1.66 K/uL (1.2-3.4); MEAN CELL VOLUME 93.7 fL (80-100); MEAN CORPUSCULAR HEMOGLOBIN 33.1 pg (25-34); MEAN CORPUSCULAR HGB CONC 35.3 g/dl (32-36); MEAN PLATELET VOLUME 10.3 fL (7.4-10.4); MONO ABS # 0.91 K/uL (0.11-0.59); NEUT % 67.8 %; NEUT ABS # 6.19 K/uL (1.4-6.5); PLATELET COUNT 144 K/uL (130-400); RED CELL DISTRIBUTION WIDTH CV 13.3 % (11.5-14.5); RED CELL DISTRIBUTION WIDTH SD 45.6 fL (36.4-46.3); WHITE BLOOD COUNT 9.13 K/uL (4.8-10.8)
[2017-07-21 17:11] LABS: ALBUMIN 3.4 gm/dl (3.4-5.0); ALT/SGPT 26 U/L (12-78); AST/SGOT 44 U/L (15-37); BLOOD UREA NITROGEN 17 mg/dl (7-18); CARBON DIOXIDE 27 mmol/L (21-32); CREATININE 1.18 mg/dl (0.60-1.40); GLUCOSE 87 mg/dl (70-99); POTASSIUM 4.2 mmol/L (3.5-5.1); SODIUM 135 mmol/L (136-145)
[2017-07-21 17:12] LABS: ALKALINE PHOSPHATASE 62 U/L (45-117); TOTAL PROTEIN 7.9 gm/dl (6.4-8.2)
[2017-07-26 15:32] LABS: ANA SCREEN TC 249X POSITIVE (NEGATIVE)
== END | disposition home or self-care (01) ==
LOC: C.LAB 16:00
PROVIDERS: ATTEND Family Medicine
DX: L95.9 Vasculitis limited to the skin, unspecified (principal)

== ENCOUNTER 2017-07-29 21:45 | Emergency (ER) | payer BC ==
[~2017-07-29] VITALS: Ht 170.2 cm; Wt 82.2 kg
[~2017-07-29 21:45] MED LIST changes: -ACET-1256 PO; -CEPH500C PO; -CZR50 PO; -DOCU100C31 PO; -OXYC1CAP5 PO
[2017-07-29 21:51] VITALS: TEMP 36.7; Ht 170.2 cm; Wt 82.2 kg
[2017-07-29 22:30] LABS: BASO % 0.4 %; BASO ABS # 0.03 K/uL (0-0.2); EOS % 6.4 %; EOS ABS # 0.55 K/uL (0-0.5); HEMATOCRIT 43.5 % (42-52); HEMOGLOBIN 15.4 g/dL (14.0-18.0); IG# 0.03 K/uL (0.00-0.02); LYMPH % 26.8 %; LYMPH ABS # 2.29 K/uL (1.2-3.4); MEAN CELL VOLUME 93.1 fL (80-100); MEAN CORPUSCULAR HGB CONC 35.4 g/dl (32-36); MEAN PLATELET VOLUME 9.3 fL (7.4-10.4); MONO % 7.5 %; MONO ABS # 0.64 K/uL (0.11-0.59); NEUT % 58.5 %; NEUT ABS # 4.99 K/uL (1.4-6.5); PLATELET COUNT 251 K/uL (130-400); RED CELL DISTRIBUTION WIDTH CV 12.8 % (11.5-14.5); RED CELL DISTRIBUTION WIDTH SD 43.2 fL (36.4-46.3); WHITE BLOOD COUNT 8.53 K/uL (4.8-10.8)
[2017-07-29] MEDS ORDERED: ONDA-170 PO (22:34)
[2017-07-29] MEDS ORDERED: CZR50 PO (22:34)
[2017-07-29] MEDS ORDERED: DOCU100C31 PO (22:34)
[2017-07-29] MEDS ORDERED: ACET-1256 PO (22:34)
[2017-07-29] MEDS ORDERED: OXYC1CAP5 PO (22:34)
[2017-07-29 22:44] LABS: PTT PATIENT 26.4 SECONDS (21.0-31.0)
[2017-07-29 22:50] LABS: ALBUMIN 3.5 gm/dl (3.4-5.0); CALCIUM 8.5 mg/dl (8.5-10.1); CREATININE 1.14 mg/dl (0.60-1.40); POTASSIUM 3.8 mmol/L (3.5-5.1)
[2017-07-29 22:52] LABS: TOTAL PROTEIN 7.7 gm/dl (6.4-8.2)
--- NOTE | 2017-07-29 23:17 | EMERGENCY ROOM VISIT NOTE ---
History Report prepared by Patricio: Juani Paula Under the Supervision of: Dr. Alireza Tamayo M.D. First contact with patient: 21:58 Chief Complaint: RASH Stated Complaint: HAD SHOULDER SURGERY-NOW HAS RASH ON R SIDE SHOULD History of Present Illness The patient is a 72 year old male who presents to the Emergency Room with complaints of a worsening rash on his right neck for two days. He recently had right shoulder surgery July 18, 2017 to repair bone spurs. He reports a rash that started out as a couple of spots two days ago. He notes the rash has been spreading throughout the day on his neck near his incision site. He notes the rash is itchy and burning. he notes that he took the dressing off his surgery site two days ago. He states that a week before surgery he noticed some dry spots on his legs. He reports after the surgery, the spots on his legs have improved. He is unsure if he is taking any antibiotics. He denies any fevers or chills. He has been applying Triamcinolone cream, prescribed by his fish flipper, to the legs and the also on his neck today. Source of History: patient Onset: two days ago Position: neck Quality: other (rash) Timing: worsening Associated Symptoms: No fevers, No chills Note: He notes the rash is itchy and burning Review of Systems See HPI for pertinent positives & negatives. A total of 10 systems reviewed and were otherwise negative. Past Medical & Surgical Medical Problems: (1) DJD of right shoulder (2) History of hypertension Surgical Problems: (1) H/O hernia repair (2) H/O shoulder surgery (3) S/P prostatectomy Family History Cancer Hypertension Social History Smoking Status: Never Smoker Alcohol Use: occasionally Drug Use: none Marital Status: single Housing Status: lives with family Occupation Status: employed Current/Historical Medications Scheduled Acetaminophen (Tylenol), 1,000 MG PO BID Aspirin (Aspirin Ec), 81 MG PO QAM Atorvastatin (Lipitor), 40 MG PO QPM Cephalexin Monohydrate (Keflex), 500 MG PO QID Docusate Sodium (Docusate Sodium), 100 MG PO BID Losartan Potassium (Losartan Potassium), 50 MG PO QAM Metoprolol Tartrate (Lopressor), 25 MG PO BID Multivitamin (Multivitamin), 1 TAB PO QAM Trazodone Hcl (Trazodone), 50 MG PO HS Scheduled PRN Ondansetron Hcl (Zofran), 8 MG PO Q8 PRN for Nausea Oxycodone Hcl (Oxycodone Hcl), 5 MG PO Q4H PRN for Pain Allergies Coded Allergies: Indomethacin (Verified Adverse Reaction, Unknown, anxiety, 07/29/17) Physical Exam Vital Signs Date Time Temp Pulse Resp B/P (MAP) Pulse Ox O2 Delivery O2 Flow Rate FiO2 07/29/17 23:45 65 16 175/116 96 Room Air 07/29/17 21:51 36.7 89 18 179/95 98 Room Air Physical Exam GENERAL: Patient is in no acute distress. HEENT: No acute trauma, normocephalic atraumatic, mucous membranes moist, no nasal congestion, no scleral icterus. NECK: No stridor, no adenopathy, no meningismus, trachea is midline. LUNGS: Clear to auscultation bilaterally, no wheeze, no rhonchi, breath sounds equal. HEART: Without murmurs gallops or rubs, regular rate and rhythm. ABDOMEN: Soft, nontender, bowel sounds positive, no hernias, no peritonitis. EXTREMITIES: Sebas over anterior right shoulder consistent with recent surgery , no evidence of wound infection. There is no LE edema. NEUROLOGIC: Oriented x 3, no acute motor or sensory deficits, no focal weakness. SKIN: Flat erythematous rash to the right neck in the area of the clavicle, no vesicles, no drainage. Petechial appearing rash to lower extremities, some areas do bridger, other do not, no drainage. Medical Decision & Procedures Laboratory Results 07/29/17 22:15 Red Blood Count 4.67, Mean Corpuscular Volume 93.1, Mean Corpuscular Hemoglobin 33.0, Mean Corpuscular Hemoglobin Concent 35.4, Mean Platelet Volume 9.3, Neutrophils (%) (Auto) 58.5, Lymphocytes (%) (Auto) 26.8, Monocytes (%) (Auto) 7.5, Eosinophils (%) (Auto) 6.4, Basophils (%) (Auto) 0.4, Neutrophils # (Auto) 4.99, Lymphocytes # (Auto) 2.29, Monocytes # (Auto) 0.64, Eosinophils # (Auto) 0.55, Basophils # (Auto) 0.03 07/29/17 22:15 Test 07/29/17 22:15 White Blood Count 8.53 K/uL (4.8-10.8) Red Blood Count 4.67 M/uL (4.7-6.1) Hemoglobin 15.4 g/dL (14.0-18.0) Hematocrit 43.5 % (42-52) Mean Corpuscular Volume 93.1 fL (80-100) Mean Corpuscular Hemoglobin 33.0 pg (25-34) Mean Corpuscular Hemoglobin Concent 35.4 g/dl (32-36) Platelet Count 251 K/uL (130-400) Mean Platelet Volume 9.3 fL (7.4-10.4) Neutrophils (%) (Auto) 58.5 % Lymphocytes (%) (Auto) 26.8 % Monocytes (%) (Auto) 7.5 % Eosinophils (%) (Auto) 6.4 % Basophils (%) (Auto) 0.4 % Neutrophils # (Auto) 4.99 K/uL (1.4-6.5) Lymphocytes # (Auto) 2.29 K/uL (1.2-3.4) Monocytes # (Auto) 0.64 K/uL (0.11-0.59) Eosinophils # (Auto) 0.55 K/uL (0-0.5) Basophils # (Auto) 0.03 K/uL (0-0.2) RDW Standard Deviation 43.2 fL (36.4-46.3) RDW Coefficient of Variation 12.8 % (11.5-14.5) Immature Granulocyte % (Auto) 0.4 % Immature Granulocyte # (Auto) 0.03 K/uL (0.00-0.02) Erythrocyte Sedimentation Rate 24 mm/hr (0-14) Prothrombin Time 10.6 SECONDS (9.0-12.0) Prothromb Time International Ratio 1.0 (0.9-1.1) Activated Partial Thromboplast Time 26.4 SECONDS (21.0-31.0) Partial Thromboplastin Ratio 1.0 Anion Gap 4.0 mmol/L (3-11) Est Creatinine Clear Calc Drug Dose 61.0 ml/min Estimated GFR () 74.6 Estimated GFR (Non- 64.3 BUN/Creatinine Ratio 12.6 (10-20) Calcium Level 8.5 mg/dl (8.5-10.1) Total Bilirubin 0.4 mg/dl (0.2-1) Aspartate Amino Transf (AST/SGOT) 28 U/L (15-37) Alanine Aminotransferase (ALT/SGPT) 31 U/L (12-78) Alkaline Phosphatase 91 U/L (45-117) C-Reactive Protein 0.79 mg/dl (0-0.29) Total Protein 7.7 gm/dl (6.4-8.2) Albumin 3.5 gm/dl (3.4-5.0) Globulin 4.2 gm/dl (2.5-4.0) Albumin/Globulin Ratio 0.8 (0.9-2) Laboratory results reviewed by me. Medications Administered Medications (Trade) Dose Ordered Sig/Thierry Route Start Time Stop Time Status Last Admin Dose Admin Diphenhydramine HCl (Benadryl Cap) 25 mg NOW ONCE PO 07/29/17 22:15 07/29/17 22:16 DC 07/29/17 22:10 25 MG Ceftriaxone Sodium (Rocephin Inj) 1 gm NOW STAT IV 07/29/17 23:27 07/29/17 23:28 DC 07/29/17 23:43 1 GM ED Course 2158: The patient was evaluated in room C6. A complete history and physical exam was performed. 5: Ordered Benadryl 35 mg PO 2321: I reassessed the patient at this time. The rash has not improved and appears about the same. He notes the itching is somewhat better, but the burning sensation is still present. I discussed the results and treatment plan with the patient. I answered all pertaining questions that he had. He expressed understanding and verbalized agreement. The patient will be discharged home. 7: Ordered Rocephin 1 gm IV Medical Decision The patient is a 72 year old male who presents to the ED with complaints of rash. Differential diagnoses considered include cellulitis, allergic reaction, wound infection, medication reaction, zoster, and thrombocytopenia. There is no leukocytosis or concerning anemia. No significant electrolyte abnormality, kidney failure or hepatitis. There is no coagulopathy. Sed rate and CRP are slightly elevated but improved compared to previous testing. On exam, the patient was not febrile or toxic. He was somewhat hypertensive, he carries a history of this and seemed somewhat anxious. The patient received oral Benadryl. He was given IV ceftriaxone. The patient is being discharged on Keflex for the possibility of an early cellulitis. This rash along the neck may actually be a reaction from tape but, as it is very close to his wound, I do think antibiotic coverage would be warranted. Patient will return here for any fever, worsening rash or worsening illness. He will see his surgeon in a few days for a recheck. He was felt stable for discharge. He can follow with his doctor's office for his elevated blood pressure. He is asymptomatic with the higher blood pressure. Medication Reconcilliation Current Medication List: was personally reviewed by me Blood Pressure Screening Patient's blood pressure: Elevated blood pressure Blood pressure disposition: Referred to PCP Impression Primary Impression: Cellulitis Scribe Attestation The scribe's documentation has been prepared under my direction and personally reviewed by me in its entirety. I confirm that the note above accurately reflects all work, treatment, procedures, and medical decision making performed by me. Departure Information Dispostion Home / Self-Care Prescriptions Cephalexin Monohydrate (Keflex) 500 Mg Cap 500 MG PO QID, #28 CAP Prov: Alireza Tamayo M.D. 07/29/17 Referrals Martell Cantu DO (PCP) Forms HOME CARE DOCUMENTATION FORM, IMPORTANT VISIT INFORMATION, WORK / SCHOOL INSTRUCTIONS Patient Instructions My [facility] Additional Instructions keflex 4x per day for 1 week return for fever, worsening rash continue the triamcinolone cream continue benadryl as directed for itching lab testing today was ok as we discussed
[2017-07-29] MEDS ORDERED: CEFTRIAXONE SOD INJ 1 GM ADDVIAL IV STA (23:27)
[2017-07-29] MEDS ORDERED: CEPH500C PO (23:30)
[2017-07-29 23:45] VITALS: BP 175/116; PULSE 65; O2SAT 96
== END 2017-07-29 23:53 | disposition home or self-care (01) ==
LOC: C.EDB 21:47 → C.EDC 23:53
DX: L03.113 Cellulitis of right upper limb (principal); M19.011 Primary osteoarthritis, right shoulder; I10 Essential (primary) hypertension; Z79.82 Long term (current) use of aspirin; Z90.79 Acquired absence of other genital organ(s); Z88.8 Allergy status to other drugs, medicaments and biological substances; Z82.49 Family history of ischemic heart disease and other diseases of the circulatory system

== ENCOUNTER → 2017-08-31 | Outpatient (CLI) | payer BC ==
[~2017-08-31] MED LIST changes: +ACET-1256 PO; -ACET-24 PO; +CEPH500C PO; -CLB200 PO; -CLC100 PO; +CZR50 PO; +DOCU100C31 PO; -LISI-725 PO; +OXYC1CAP5 PO; -RXC5 PO
[2017-08-31 13:24] LABS: BASO % 0.2 %; BASO ABS # 0.02 K/uL (0-0.2); EOS ABS # 0.18 K/uL (0-0.5); HEMATOCRIT 45.2 % (42-52); HEMOGLOBIN 15.6 g/dL (14.0-18.0); LYMPH ABS # 1.59 K/uL (1.2-3.4); MEAN CELL VOLUME 93.4 fL (80-100); MEAN CORPUSCULAR HEMOGLOBIN 32.2 pg (25-34); MEAN CORPUSCULAR HGB CONC 34.5 g/dl (32-36); MEAN PLATELET VOLUME 9.4 fL (7.4-10.4); MONO % 6.7 %; MONO ABS # 0.59 K/uL (0.11-0.59); NEUT ABS # 6.36 K/uL (1.4-6.5); PLATELET COUNT 170 K/uL (130-400); RED CELL DISTRIBUTION WIDTH CV 13.7 % (11.5-14.5); RED CELL DISTRIBUTION WIDTH SD 46.8 fL (36.4-46.3); WHITE BLOOD COUNT 8.84 K/uL (4.8-10.8)
== END | disposition home or self-care (01) ==
LOC: C.LAB 11:39
PROVIDERS: ATTEND Internal Medicine
DX: R89.4 Abnormal immunological findings in specimens from other organs, systems and tissues (principal); R21 Rash and other nonspecific skin eruption

== ENCOUNTER 2021-04-18 18:38 | Observation (INO) ==
[2021-04-18] MEDS ORDERED: SODIUM CHLORIDE 0.9% 1000ML 1,000 ML IV STA (18:49)
[2021-04-18 19:05] LABS: Basophils # (auto) 0.02 K/uL (0-0.2); Basophils % (auto) 0.3 %; Eosinophils # (auto) 0.13 K/uL (0-0.5); Eosinophils % (auto) 1.9 %; Hematocrit (blood only) 48.7 % (42-52); Immature Granulocytes # (auto) 0.01 K/uL (0.00-0.02); Immature Granulocytes % (auto) 0.1 %; Mean Corpuscular Hemoglobin 34.1 pg (25-34); Mean Corpuscular Hgb Conc 34.9 g/dL (32-36); Mean Corpuscular Volume 97.8 fL (80-100); Mean Platelet Volume 10.5 fL (7.4-10.4); Monocytes # (auto) 0.71 K/uL (0.11-0.59); Monocytes % (auto) 10.2 %; Neutrophils # (auto) 4.49 K/uL (1.4-6.5); Neutrophils % (auto) 64.5 %; Platelet Count 160 K/uL (130-400); RDW Coefficient of Variation 13.2 % (11.5-14.5); RDW Standard Deviation 46.9 fL (36.4-46.3); Red Blood Count 4.98 M/uL (4.7-6.1); White Blood Count 6.96 K/uL (4.8-10.8)
[2021-04-18 19:16] LABS: INR 1.1 (0.9-1.1); Partial Thromboplastin Ratio 1.1; Partial Thromboplastin Time 27.8 Seconds (21.0-31.0); Prothrombin Time 10.8 Seconds (9.0-12.0)
[2021-04-18 19:30] LABS: Albumin Level 3.9 gm/dl (3.4-5.0); BUN Creatinine Ratio 19.1 (10-20); Calcium 9.2 mg/dl (8.5-10.1); Creatinine Clr Calc Pharmacy 59.2 ml/min; Est GFR (African American) 72.3 ml/min; Est GFR (Non-African American) 62.3 ml/min; Potassium 3.7 mmol/L (3.5-5.1)
[2021-04-18 19:33] LABS: Bilirubin,Total 1.5 mg/dl (0.2-1); Globulin 3.9 gm/dl (2.5-4.0); Total Protein 7.8 gm/dl (6.4-8.2)
--- NOTE | 2021-04-18 19:37 | Emergency Department Note ---
Impression & Plan Acute GI bleeding ED Provider Note INFORMANT: Patient ED PROVIDER(S): Adam Martinez MD CHIEF COMPLAINT: Rectal bleeding PLAN: Disposition: Admitted Condition: Good Outpatient prescription management: none Referral: None MEDICAL DECISION MAKING: Patient presented with acute rectal bleeding that seem to be consistent with lower GI bleeding. No obvious sources were found on physical examination. With the mild abdominal discomfort patient underwent a work-up. He had an unremarkab le ECG and monitoring. The patient's lactate was normal. CBC did not reveal any acute findings. Remainder blood work was unremarkable. The patient had no acute findings on CT imaging. Patient does have diverticuli noted. This could be a diverticular bleed. The patient had 2 episodes while in the ER. I did discuss the case with Dr. Jamison of [facility] gastroenterology. It was felt to be most appropriate to have the patient admitted by internal medicine and prepped with plans for a scope tomorrow. Consultation was made with Dr. Woody Siegel of the [facility] service. Patient was evaluated in the ER for further management. Triage Nursing notes reviewed and agree them. Vital Signs: reviewed and remarkable for no significant abnormalities Differential diagnosis: Diverticulosis, AVM, coagulopathy, colitis, inflammatory bowel disease, malignancy, Jolly-Burton tear, esophagitis, peptic ulcer disease, variceal ble ed, gastritis, epistaxis, fissure, hemorrhoids, as well as other pathologies. Diagnostics interpreted by me: ECG: Twelve-lead ECG reveals normal sinus rhythm at 75 bpm. Inferior Q waves present. No ST elevation or depression. No PACs or PVCs. Normal axis. Cardiac Monitoring: Cardiac monitoring ordered by me: The patient was placed on continuous cardiac monitoring and observed. It revealed a normal sinus rhythm at 73 beats per minute without ectopy or evidence of dysrhythmia. Imaging studies: CT imaging negative for acute process. I refer you to the EMR for further details. HPI: The patient is a 75year old male who presents to the Emergency Room with complaints of rectal bleeding. This started today and is persisting. The patient has noted 4 episodes that were accompanied with loose stool. Patient states it is now completely blood. The patient also notes the following associated symptoms, some mild generalized abdominal discomfort but no significant pain.. The patient has taken no medication for relieving factors. Current pain is rated as 2/10. Patient states he is not on any blood thinners. No prior history of the same. Pt denies LOC, headache, fevers, chills, diaphoresis, visual changes, neck pain, chest pain, breathing difficulties, nausea, vomiting, melena, urinary symptoms, numbness, weakness, lymphadenopathy, rash, or other complaints. ROS: See above HPI for pertinent positives & negatives. A total of 10 systems reviewed and were otherwise negative. PAST MEDICAL HISTORY:See Below , high blood pressure, prostate cancer PAST SURGICAL HISTORY:See Below, hernia repair, prostatectomy FAMILY HISTORY:See Below SOCIAL HISTORY:See Below, non-smoker HOME MEDICATIONS:See Below ALLERGIES:See Below VITALS:See Below PHYSICAL EXAMINATION: GENERAL: Awake, alert, well-appearing, in no distress HENT: Normocephalic, atraumatic. Oropharynx unremarkable. EYES: Normal conjunctiva. Sclera non-icteric. NECK: Inspection normal. Non-tender. Supple. No nuchal rigidity. FROM. No m asses. RESPIRATORY: Clear to auscultation. No wheezes. No rales. Normal respiratory effort. CARDIAC: Normal rate. Normal rhythm. No murmurs. No rubs. Extremities warm and well perfused. Pulses equal. No JVD. GI: Soft, non-distended. Very subtle diffuse tenderness to palpation. No rebound or guarding. No masses. RECTAL: Deferred. Patient provided a stool sample that was Hemoccult positive and all red blood mixed with stool. MUSCULOSKELETAL: Atraumatic. Chest examination reveals no tenderness. The back is symmetrical on inspection without obvious abnormality. There is no CVA tenderness to palpation. No joint edema. LOWER EXTREMITIES: Calves are equal size bilaterally and non-tender. No edema. No discoloration. NEURO: Normal sensorium. No sensory or motor deficits noted. SKIN: No rash or jaundice noted. Adam Martinez MD Past Med/Surg History Medical History (Updated 04/18/21 @ 22:40 by Brandi Bolton DO) Hypertension Unstable angina Social History Smoking Status: Never smoker Feels Safe at Home: Yes Allergies Allergies Allergy/AdvReac Type Severity Reaction Status Date / Time indomethacin AdvReac Unknown anxiety Verified 07/29/17 22:30 Home Meds Home Medications Medication Instructions Recorded Confirmed Bifidobacterium infantis 4 mg 4 mg PO QAM 04/18/21 04/18/21 capsule (Align) aspirin 81 mg tablet,delayed 81 mg PO QAM 04/18/21 04/18/21 release atorvastatin 20 mg tablet 20 mg PO QAM 04/18/21 04/18/21 losartan 50 mg tablet 50 mg PO HS 04/18/21 04/18/21 meloxicam 15 mg tablet 15 mg PO QAM 04/18/21 04/18/21 metoprolol succinate 25 mg 25 mg PO BID 04/18/21 04/18/21 tablet,extended release 24 hr multivitamin 1 tab PO QAM 04/18/21 04/18/21 trazodone 50 mg tablet 50 mg PO HS 04/18/21 04/18/21 Results & Data (ED) Vital Signs Vital Signs - 24 hr 04/18/21 18:38 04/18/21 18:44 04/18/21 18:49 Temperature 36.7 C Temperature Source Temporal Artery Scan Pulse Rate 84 82 Pulse Rate [Apical] 82 Respiratory Rate 18 20 18 Respiratory Effort / Characteristics Non-Labored Spontaneous Respiratory Depth Normal Respiratory Pattern Regular Blood Pressure 199/117 H Blood Pressure [Right Arm] 185/128 H Blood Pressure Mean 144 Blood Pressure Mean [Right Arm] 147 Pulse Oximetry 98 97 98 Oxygen Delivery Method Room Air Room Air Sepsis Recent Fever Within 48 Hours No Sepsis New/Unexplained Change in Mental Status No Sepsis Action Taken by Nursing No Action Required 04/18/21 20:57 04/18/21 22:00 Temperature Temperature Source Pulse Rate Pulse Rate [Apical] 84 73 Respiratory Rate 20 20 Respiratory Effort / Characteristics Respiratory Depth Respiratory Pattern Blood Pressure Blood Pressure [Right Arm] 179/118 H 201/132 H Blood Pressure Mean Blood Pressure Mean [Right Arm] 138 155 Pulse Oximetry 98 97 Oxygen Delivery Method Room Air Sepsis Recent Fever Within 48 Hours Sepsis New/Unexplained Change in Mental Status Sepsis Action Taken by Nursing Laboratory Data Result diagrams: 04/18/21 18:53 04/18/21 18:53 Lab Results 04/18/21 04/18/21 04/18/21 Range/Units 18:49 18:53 18:53 WBC 6.96 (4.8-10.8) K/uL RBC 4.98 (4.7-6.1) M/uL Hgb 17.0 (14.0-18.0) g/dL Hct 48.7 (42-52) % MCV 97.8 (80-100) fL MCH 34.1 H (25-34) pg MCHC 34.9 (32-36) g/dL RDW Std Deviation 46.9 H (36.4-46.3) fL RDW Coeff of Michelle 13.2 (11.5-14.5) % Plt Count 160 (130-400) K/uL MPV 10.5 H (7.4-10.4) fL Immature Gran % (Auto) 0.1 % Neut % (Auto) 64.5 % Lymph % (Auto) 23.0 % [place] % (Auto) 10.2 % Eos % (Auto) 1.9 % Baso % (Auto) 0.3 % Neut # (Auto) 4.49 (1.4-6.5) K/uL Lymph # (Auto) 1.60 (1.2-3.4) K/uL [place] # (Auto) 0.71 H (0.11-0.59) K/uL Eos # (Auto) 0.13 (0-0.5) K/uL Baso # (Auto) 0.02 (0-0.2) K/uL Immature Gran # (Auto) 0.01 (0.00-0.02) K/uL PT (9.0-12.0) Seconds INR (0.9-1.1) APTT (21.0-31.0) Seconds PTT Ratio Sodium (136-145) mmol/L Potassium (3.5-5.1) mmol/L Chloride (98-107) mmol/L Carbon Dioxide (21-32) mmol/L Anion Gap (3-11) BUN (7-18) mg/dl Creatinine (0.6-1.4) mg/dl Est Cr Clr Drug Dosing ml/min Est GFR ( Amer) ml/min Est GFR (Non-Af Amer) ml/min BUN/Creatinine Ratio (10-20) Glucose (70-99) mg/dl Lactate (0.4-2.0) mmol/L Calcium (8.5-10.1) mg/dl Total Bilirubin (0.2-1) mg/dl AST (15-37) U/L ALT (12-78) Alkaline Phosphatase (45-117) U/L Total Protein (6.4-8.2) gm/dl Albumin (3.4-5.0) gm/dl Globulin (2.5-4.0) gm/dl Albumin/Globulin Ratio (0.9-2) POC Stool Occult Blood Positive A (Negative) SARS-CoV-2, RNA, NAAT (NEGATIVE) Blood Type O Negative Antibody Screen NEGATIVE 04/18/21 04/18/21 04/18/21 Range/Units 18:53 18:53 18:53 WBC (4.8-10.8) K/uL RBC (4.7-6.1) M/uL Hgb (14.0-18.0) g/dL Hct (42-52) % MCV (80-100) fL MCH (25-34) pg MCHC (32-36) g/dL RDW Std Deviation (36.4-46.3) fL RDW Coeff of Michelle (11.5-14.5) % Plt Count (130-400) K/uL MPV (7.4-10.4) fL Immature Gran % (Auto) % Neut % (Auto) % Lymph % (Auto) % [place] % (Auto) % Eos % (Auto) % Baso % (Auto) % Neut # (Auto) (1.4-6.5) K/uL Lymph # (Auto) (1.2-3.4) K/uL [place] # (Auto) (0.11-0.59) K/uL Eos # (Auto) (0-0.5) K/uL Baso # (Auto) (0-0.2) K/uL Immature Gran # (Auto) (0.00-0.02) K/uL PT 10.8 (9.0-12.0) Seconds INR 1.1 (0.9-1.1) APTT 27.8 (21.0-31.0) Seconds PTT Ratio 1.1 Sodium 139 (136-145) mmol/L Potassium 3.7 (3.5-5.1) mmol/L Chloride 106 (98-107) mmol/L Carbon Dioxide 23 (21-32) mmol/L Anion Gap 10.0 (3-11) BUN 22 H (7-18) mg/dl Creatinine 1.15 (0.6-1.4) mg/dl Est Cr Clr Drug Dosing 59.2 ml/min Est GFR ( Amer) 72.3 ml/min Est GFR (Non-Af Amer) 62.3 ml/min BUN/Creatinine Ratio 19.1 (10-20) Glucose 89 (70-99) mg/dl Lactate 1.2 (0.4-2.0) mmol/L Calcium 9.2 (8.5-10.1) mg/dl Total Bilirubin 1.5 H (0.2-1) mg/dl AST 27 (15-37) U/L ALT 37 (12-78) Alkaline Phosphatase 74 (45-117) U/L Total Protein 7.8 (6.4-8.2) gm/dl Albumin 3.9 (3.4-5.0) gm/dl Globulin 3.9 (2.5-4.0) gm/dl Albumin/Globulin Ratio 1.0 (0.9-2) POC Stool Occult Blood (Negative) SARS-CoV-2, RNA, NAAT (NEGATIVE) Blood Type Antibody Screen 04/18/21 Range/Units 22:18 WBC (4.8-10.8) K/uL RBC (4.7-6.1) M/uL Hgb (14.0-18.0) g/dL Hct (42-52) % MCV (80-100) fL MCH (25-34) pg MCHC (32-36) g/dL RDW Std Deviation (36.4-46.3) fL RDW Coeff of Michelle (11.5-14.5) % Plt Count (130-400) K/uL MPV (7.4-10.4) fL Immature Gran % (Auto) % Neut % (Auto) % Lymph % (Auto) % [place] % (Auto) % Eos % (Auto) % Baso % (Auto) % Neut # (Auto) (1.4-6.5) K/uL Lymph # (Auto) (1.2-3.4) K/uL [place] # (Auto) (0.11-0.59) K/uL Eos # (Auto) (0-0.5) K/uL Baso # (Auto) (0-0.2) K/uL Immature Gran # (Auto) (0.00-0.02) K/uL PT (9.0-12.0) Seconds INR (0.9-1.1) APTT (21.0-31.0) Seconds PTT Ratio Sodium (136-145) mmol/L Potassium (3.5-5.1) mmol/L Chloride (98-107) mmol/L Carbon Dioxide (21-32) mmol/L Anion Gap (3-11) BUN (7-18) mg/dl Creatinine (0.6-1.4) mg/dl Est Cr Clr Drug Dosing ml/min Est GFR ( Amer) ml/min Est GFR (Non-Af Amer) ml/min BUN/Creatinine Ratio (10-20) Glucose (70-99) mg/dl Lactate (0.4-2.0) mmol/L Calcium (8.5-10.1) mg/dl Total Bilirubin (0.2-1) mg/dl AST (15-37) U/L ALT (12-78) Alkaline Phosphatase (45-117) U/L Total Protein (6.4-8.2) gm/dl Albumin (3.4-5.0) gm/dl Globulin (2.5-4.0) gm/dl Albumin/Globulin Ratio (0.9-2) POC Stool Occult Blood (Negative) SARS-CoV-2, RNA, NAAT NEGATIVE (NEGATIVE) Blood Type Antibody Screen Administered Medications Polyethylene Glycol/Electrolytes (Lavage Solution 4000ml) 8 dose PO 0600,2300 VIC Stop: 04/19/21 06:01 Last Admin: 04/18/21 23:35 Dose: 8 dose Documented by: [id number] Discontinued Medications Hydralazine HCl (Hydralazine Hcl 20 Mg/Ml Vial) 10 mg IV NOW STA Stop: 04/18/21 22:42 Last Admin: 04/18/21 22:57 Dose: 10 mg Documented by: [id number] Sodium Chloride (Nss 1000ml) 1,000 mls @ 125 mls/hr IV .Q8H STA Stop: 04/19/21 02:48 Last Admin: 04/18/21 19:32 Dose: 125 mls/hr Documented by: [id number] Losartan Potassium (Losartan Potassium 50 Mg Tab) 50 mg PO NOW STA Stop: 04/18/21 22:46 Last Admin: 04/18/21 23:35 Dose: 50 mg Documented by: [id number] Imaging Data Radiologist's Impression: Abdomen/Pelvis CT 04/18/21 20:11 CT abd pelvis wo con CLINICAL HISTORY: diffuse abd pain, gi bleed COMPARISON STUDY: No previous studies for comparison. CT DOSE: 540.11 mGy.cm TECHNIQUE: Standard CT of the Abdomen and Pelvis was performed without IV contrast. The patient did not receive oral contrast. A dose lowering technique was utilized adhering to the principles of ALARA. FINDINGS: Lung base: The lung bases are clear. There is evidence for coronary artery calcification. Abdominal cavity and bowel: There is no evidence for abdominal mass, adenopathy or ascites. There is evidence for small sliding-type hiatal hernia. There is a right inguinal hernia containing a loop of small bowel. There is no evidence for incarceration, obstruction or edema. The remaining bowel loops are normally placed within the abdomen and pelvis without evidence for dilatation or obstruction. There is mild sigmoid diverticulosis without evidence for diverticulitis. No inflammatory changes or free air is seen. There is a normal appendix in the right lower quadrant. Liver: The liver is homogeneous in attenuation on these limited noncontrast images..There are a few subcentimeter sharply defined simple liver cysts. Spleen: The spleen is homogeneous in attenuation on these limited noncontrast images. Pancreas: The pancreas is homogeneous in attenuation on these limited non contrast images. Gall Bladder: The gallbladder is well distended with no evidence for cholelithiasis, wall thickening or pericholecystic edema.. Adrenal glands: The adrenal glands are normal in size and attenuation on these limited noncontrast images. Kidneys: The kidneys are homogeneous in attenuation on these limited noncontrast images. There is no evidence for gross renal mass, calculus or hydronephrosis bilaterally. Bladder: There is no evidence for focal bladder wall thickening, calculus or diverticulum. : There is no evidence for pelvic mass or adenopathy. Vasculature: There is no evidence for focal aneurysmal dilatation of the abdominal aorta. Prominent atherosclerotic calcification is present. Osseous structures: There is no acute osseous pathology. Extensive degenerative changes are seen involving the lower lumbar spine. IMPRESSION: 1. Small sliding-type hiatal hernia. 2. Sigmoid diverticulosis without evidence for diverticulitis. 3. Right inguinal hernia containing loop of small bowel with no evidence for obstruction or incarceration. 4. No other evidence for acute intra-abdominal or pelvic abnormality on these li mited noncontrast images. 5. Additional nonacute findings are delineated above. ACT 112: Negative or not required by law. Electronically signed by: Stephen Nolasco M.D. 04/18/2021 8:52 PM Discharge Plan Visit Data Chief Complaint: Rectal Bleed Stated Complaint: BLOOD IN STOOL ED Provider: Adam Martinez Discharge Problem: Acute GI bleeding Patient Disposition: Admitted As Inpatient Discharge Instructions Interventions: ED Discharge Assessment Last Done: 04/18/21 23:00
--- NOTE | 2021-04-18 20:53 | CT Scan Report ---
CT abd pelvis wo con CLINICAL HISTORY: diffuse abd pain, gi bleed COMPARISON STUDY: No previous studies for comparison. CT DOSE: 540.11 mGy.cm TECHNIQUE: Standard CT of the Abdomen and Pelvis was performed without IV contrast. The patient did not receive oral contrast. A dose lowering technique was utilized adhering to the principles of LILIANE Waters. FINDINGS: Lung base: The lung bases are clear. There is evidence for coronary artery calcification. Abdominal cavity and bowel: There is no evidence for abdominal mass, adenopathy or ascites. There is evidence for small sliding-type hiatal hernia. There is a right inguinal hernia containing a loop of small bowel. There is no evidence for incarcera tion, obstruction or edema. The remaining bowel loops are normally placed within the abdomen and pelvis without evidence for dila tation or obstruction. There is mild sigmoid diverticulosis without evidence for diverticulitis. No i nflammatory changes or free air is seen. There is a normal appendix in the right lower quadrant. Liver: The liver is homogeneous in attenuation on these limited noncontrast images..There are a few s ubcentimeter sharply defined simple liver cysts. Spleen: The spleen is homogeneous in attenuation on these limited noncontrast images. Pancreas: The pancreas is homogeneous in attenuation on these limited noncontrast images. Gall Bladder: The gallbladder is well distended with no evidence for cholelithiasis, wall thickening or pericholecystic edema.. Adrenal glands: The adrenal glands are normal in size and attenuation on these limited noncontrast im ages. Kidneys: The kidneys are homogeneous in attenuation on these limited noncontrast images. There is no evidence for gross renal mass, calculus or hydronephrosis bilaterally. Bladder: There is no evidence for focal bladder wall thickening, calculus or diverticulum. : There is no evidence for pelvic mass or adenopathy. Vasculature: There is no evidence for focal aneurysmal dilatation of the abdominal aorta. Prominent a therosclerotic calcification is present. Osseous structures: There is no acute osseous pathology. Extensive degenerative changes are seen invo lving the lower lumbar spine. IMPRESSION: 1. Small sliding-type hiatal hernia. 2. Sigmoid diverticulosis without evidence for diverticulitis. 3. Right inguinal hernia containing loop of small bowel with no evidence for obstruction or incarcera tion. 4. No other evidence for acute intra-abdominal or pelvic abnormality on these limited noncontrast vladimir ges. 5. Additional nonacute findings are delineated above. ACT 112: Negative or not required by law. Electronically signed by: Stephen Nolasco M.D. 04/18/2021 8:52 PM
[2021-04-18] MEDS ORDERED: ACETAMINOPHEN 325 MG TAB PO PRN (22:19)
[2021-04-18] MEDS ORDERED: ONDANSETRON INJ 2 MG/ML 2 ML VIAL IV PRN (22:19)
[2021-04-18] MEDS ORDERED: LAVAGE SOLUTION 4000ML PO SCH (22:20)
--- NOTE | 2021-04-18 22:22 | History & Physical Report ---
Date of Service April 18, 2021 Assessment & Plan (1) Acute GI bleeding: Plan: 75 yo M Hx angina, HTN, DJD admitted under observation for acute lower GI bleed suspected to be due to diverticular source. Acute GIB: On presentation with 5 episodes today of bright red diarrhea (2 of these episodes have occurred while in ER). No complaints of systemic symptoms such as SOB, chest pain, lightheadedness. No evidence of hemorrhoids or anal fissure on rectal exam. Stool occult blood positive. Hgb 17 in ER. CTAP with diverticulosis without diverticulitis. Dr. Jamison with GI contacted by ER provider; plan to monitor patient overnight with colonoscopy in the AM. GoLytely prep ordered. Blood consent performed and type/screen performed. Patient is blood type O negative. CBC in AM. Med/Tele for continuous monitoring. HTN: History of, on losartan 50mg qHS. Will give this in ER. BP quite high (170-200s/110-130s in ER). Will give hydralazine 10mg IV x1 as well as q6h prn BP >200/100. Given GIB do not want to decrease BP too drastically in the event of hemodynamic instability. DJD: History of; takes Mobic daily. Holding Mobic in the setting of acute GIB. Code Status: FULL CODE FEN/GI: Clear liquid until midnight, then NPO; GoLytely for colonoscopy in AM DVT ppx: SCDs, no mediacl ppx given GIB Dispo: Med/Tele (2) Unstable angina: (3) Hypertension: (4) DJD of right shoulder: History of Present Illness Chief Complaint: GIB Primary Care Provider: Martell Cantu 75 yo M Hx angina, HTN, DJD presents for 5 episodes of blood diarrhea since 4pm. He does not endorse chest pain, SOB, nausea, vomiting, abdominal pain. No prior history of GIB. In the ER Hgb was 17, HTN to 190s/110s, labs otherwise normal. CTAP with diverticulosis without diverticulitis or other noted acute pathology. Dr. Jamison with GI recommended colonoscopy in AM given several episodes of bloody stools in ER. Hospitalist service consulted for admission. Allergies Allergy/AdvReac Type Severity Reaction Status Date / Time indomethacin AdvReac Unknown anxiety Verified 07/29/17 22:30 Home Medications Medication Instructions Recorded Confirmed Type Bifidobacterium infantis 4 mg 4 mg PO QAM 04/18/21 04/18/21 History capsule (Align) aspirin 81 mg tablet,delayed 81 mg PO QAM 04/18/21 04/18/21 History release atorvastatin 20 mg tablet 20 mg PO QAM 04/18/21 04/18/21 History losartan 50 mg tablet 50 mg PO HS 04/18/21 04/18/21 History meloxicam 15 mg tablet 15 mg PO QAM 04/18/21 04/18/21 History metoprolol succinate 25 mg 25 mg PO BID 04/18/21 04/18/21 History tablet,extended release 24 hr multivitamin 1 tab PO QAM 04/18/21 04/18/21 History trazodone 50 mg tablet 50 mg PO HS 04/18/21 04/18/21 History Past Med/Surg History Medical History Hypertension Unstable angina Social History Smoking Status: Never smoker Hx Alcohol Use: Yes Alcohol type: beer Hx Substance Use: No Preferred Language: Fijian Communication Ability: Effective Proofer Prepress Required: No Beliefs That Will Affect Care: None Current Living Situation: Alone Feels Safe at Home: Yes Assistive Devices: None Review of Systems Review of Systems: All systems reviewed & are unremarkable except as noted in HPI & below Constitutional: no fever, no chills and no malaise Respiratory: no cough and no dyspnea Cardiovascular: no chest pain, no palpitations and no edema Gastrointestinal: + diarrhea/loose stools and + blood in stools; no abdominal pain and no constipation Physical Exam Constitutional: WD/WN, vitals as above Eyes: PERRL, conjunctivae normal, anicteric sclerae ENMT: external ear and nose normal, oropharynx normal Neck: normal visual inspection Respiratory: normal respiratory effort, lungs clear to auscultation Cardiovascular: RRR, no murmur, no edema Gastrointestinal (Abdomen): normal bowel sounds, soft, nontender, no hepatosplenomegaly Musculoskeletal: no cyanosis or clubbing, extremities motor strength 5/5 Skin: no rashes, warm and dry Neurologic: AAOx3, normal speech. PERRLA, EOMI, no nystagmus. Normal visual acuity bilaterally. Bilateral UE, LE, and face without sensory or motor deficits. No tremor. No ataxia with gait. Psychiatric: A+Ox3, euthymic affect Results & Data Results & Data ([facility]) Vital Signs (Past 12 Hours) Vital Signs Temp Pulse Pulse Resp BP BP Pulse Ox 04/18/21 20:57 84 20 179/118 H 98 04/18/21 18:49 82 18 98 04/18/21 18:44 36.7 C 84 20 199/117 H 97 04/18/21 18:38 82 18 185/128 H 98 Code Status & VTE Plan VTE Prophylaxis Plan VTE Prophylaxis will be ordered: Yes Supervising Physician Co-Signing Physician Notes Attending addendum: I have physically seen this patient, have supervised the medical residents activities, and agree with the H&P unless as otherwise noted. Assessment and Plan: Acute GI bleed/bright red blood per rectum- NPO IV fluids Type and screen H&H every 6 hours Process at the very least aggravated by Mobic Gastroenterology aware is contacted by the ED, and asked that patient be prepped for colonoscopy tomorrow Hypertension- Hold losartan Hydralazine IV/Lopressor IV as noted as needed Remaining orders and notations as noted Resident Activity Tracking Resident Involvement: Resident Care Provided Care Provided: Adult Hospital Medicine
[2021-04-18] MEDS ORDERED: hydrALAZINE HCL 20 MG/ML VIAL IV STA (22:41)
[2021-04-18] MEDS ORDERED: LOSARTAN POTASSIUM 50 MG TAB PO STA (22:45)
[2021-04-18] MEDS ORDERED: SODIUM CHLORIDE 0.9% 1000ML 1,000 ML IV SCH (23:11)
[2021-04-18] MEDS: LAVAGE SOLUTION 4000ML PO SCH (23:35)
[2021-04-19] MEDS ORDERED: METOPROLOL TARTRATE 1 MG/ML VIAL IV STA (02:22)
[2021-04-19] MEDS: LAVAGE SOLUTION 4000ML PO SCH (05:53)
[2021-04-19] MEDS: hydrALAZINE HCL 20 MG/ML VIAL IV PRN ×2 (05:59→11:54)
[2021-04-19 08:36] LABS: Basophils # (auto) 0.02 K/uL (0-0.2); Basophils % (auto) 0.2 %; Eosinophils # (auto) 0.15 K/uL (0-0.5); Eosinophils % (auto) 1.6 %; Hematocrit (blood only) 50.1 % (42-52); Hemoglobin 17.2 g/dL (14.0-18.0); Immature Granulocytes # (auto) 0.01 K/uL (0.00-0.02); Immature Granulocytes % (auto) 0.1 %; Lymphocytes # (auto) 2.21 K/uL (1.2-3.4); Lymphocytes % (auto) 24.3 %; Mean Corpuscular Hemoglobin 33.9 pg (25-34); Mean Corpuscular Volume 98.6 fL (80-100); Monocytes # (auto) 0.89 K/uL (0.11-0.59); Monocytes % (auto) 9.8 %; Neutrophils # (auto) 5.82 K/uL (1.4-6.5); Platelet Count 160 K/uL (130-400); RDW Coefficient of Variation 13.4 % (11.5-14.5); RDW Standard Deviation 48.2 fL (36.4-46.3); Red Blood Count 5.08 M/uL (4.7-6.1)
[2021-04-19 08:39] LABS: Mean Corpuscular Hgb Conc 34.3 g/dL (32-36)
[2021-04-19 09:07] LABS: Albumin Level 3.9 gm/dl (3.4-5.0); BUN Creatinine Ratio 12.8 (10-20); Bilirubin,Total 2.1 mg/dl (0.2-1); Calcium 9.2 mg/dl (8.5-10.1); Creatinine Clr Calc Pharmacy 64.8 ml/min; Est GFR (African American) 80.7 ml/min; Est GFR (Non-African American) 69.6 ml/min; Globulin 3.9 gm/dl (2.5-4.0); Potassium 3.6 mmol/L (3.5-5.1); Total Protein 7.8 gm/dl (6.4-8.2)
--- NOTE | 2021-04-19 09:46 | Gastrointestinal Consultation ---
Date of Consultation April 19, 2021 Assessment & Plan (1) Acute GI bleeding: Patient is a pleasant 75-year-old male who presents in the hospital after being admitted for rectal bleeding. He reports this began about 4 PM yesterday. He has had no further bleeding after colonoscopy prep. He tolerated the colonoscopy prep well. Plan for today is colonoscopy. Continue n.p.o. Continue supportive care measures. Please refer to supervising physician addendum for further recommendations. Supervising Physician Co-Signing Physician Notes I have seen and examined the patient. I agree with note above by PADMAJA Abraham except as noted below. HPI Pt states no further bleeding by end of bowel prep. PE Abdomen ps bs, soft, no guarding nor rebound A/P GI bleed---colonoscopy today. Procedure and risks explained to patient which include but not limited to medication reaction, bleeding, perforation, aspiration, and missed lesions. History of Present Illness Attending Physician: Jimmy Bentley MD History of Present Illness The patient is a pleasant 75-year-old male with a past medical history of hypertension, unstable angina, palpitations, ST segment depression who presented to the hospital for evaluation of bloody stools. The GI service was consulted due to blood in stools. 11/30/2018: Colonoscopy notes are reviewed performed due to history of clinically significant diarrhea with family history of colon cancer in a first-degree relative. Demonstrated a normal-appearing terminal ileum. Mild nonbleeding internal hemorrhoids found during endoscopy. A few small mouth diverticula found in the sigmoid colon. Normal mucosa noted throughout the entire colon with biopsies obtained. Pathology results demonstrated random colon biopsies with nonspecific inflammation. On exam/interview today, the patient reports that he is feeling tired today. He reports that he normally has a bowel movement every morning and he did have one yesterday. He reports that 4 PM yesterday he began having straight blood with bowel movement. He had 3 episodes of this prior to arriving to the emergency department. Last colonoscopy in 2019 as noted above. He reports he was able to tolerate colonoscopy prep. He states the output is liquid and "urine colored". Denies any nausea or vomiting. Denies lightheadedness, chest pain, shortness of breath. He has had no unintentional weight loss. Patient is a lifetime non-smoker. He consumes 2 beer per day. Denies use of recreational drugs including marijuana. 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 He is a . He has 2 adult daughters. Allergies Allergy/AdvReac Type Severity Reaction Status Date / Time indomethacin AdvReac Unknown anxiety Verified 07/29/17 22:30 Home Medications Medication Instructions Recorded Confirmed Type Bifidobacterium infantis 4 mg 4 mg PO QAM 04/18/21 04/18/21 History capsule (Align) aspirin 81 mg tablet,delayed 81 mg PO QAM 04/18/21 04/18/21 History release atorvastatin 20 mg tablet 20 mg PO QAM 04/18/21 04/18/21 History losartan 50 mg tablet 50 mg PO HS 04/18/21 04/18/21 History meloxicam 15 mg tablet 15 mg PO QAM 04/18/21 04/18/21 History metoprolol succinate 25 mg 25 mg PO BID 04/18/21 04/18/21 History tablet,extended release 24 hr multivitamin 1 tab PO QAM 04/18/21 04/18/21 History trazodone 50 mg tablet 50 mg PO HS 04/18/21 04/18/21 History Patient History Medical History Hypertension Unstable angina Social History Smoking Status: Never smoker Hx Alcohol Use: Yes Alcohol type: beer Hx Substance Use: No Preferred Language: Uzbek Communication Ability: Effective 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 Required: No Beliefs That Will Affect Care: None Current Living Situation: Alone Other Information That Helps Us Care for You: No Feels Safe at Home: Yes Safety Concerns: Feels Safe At This Time Assistive Devices: None Review of Systems Review of Systems: All systems reviewed & are unremarkable except as noted in Subjective Physical Exam Constitutional: WD/WN, vitals as above Eyes: PERRL, conjunctivae normal, anicteric sclerae ENMT: external ear and nose normal, oropharynx normal Neck: trachea midline, no thyromegaly Respiratory: normal respiratory effort, lungs clear to auscultation Cardiovascular: RRR, no murmur, no edema Gastrointestinal (Abdomen): normal bowel sounds, soft, nontender, no hepatosplenomegaly Musculoskeletal: no cyanosis or clubbing, extremities motor strength 5/5 Skin: no rashes, warm and dry Neurologic: PERRL, EOMI, accommodation nl, no face palsy, no dysarthria Psychiatric: A+Ox3, euthymic affect Results & Data ([facility]) Vital Signs (Past 12 Hours) Vital Signs Pulse Pulse Resp BP BP Pulse Ox 04/19/21 06:00 84 18 198/103 H 99 04/19/21 05:30 71 17 204/121 H 98 04/19/21 03:30 71 17 169/112 H 97 04/19/21 03:16 85 205/141 H 04/19/21 03:04 92 H 25 H 99 04/19/21 01:25 73 22 212/144 H 99 04/18/21 23:11 85 21 205/141 H 98 04/18/21 22:43 73 18 196/110 H 99 04/18/21 22:00 73 20 201/132 H 97 Laboratory Results Laboratory Results - last 24 hr 04/18/21 04/18/21 04/18/21 18:49 18:53 18:53 WBC 6.96 RBC 4.98 Hgb 17.0 Hct 48.7 MCV 97.8 MCH 34.1 H MCHC 34.9 RDW Std Deviation 46.9 H RDW Coeff of Michelle 13.2 Plt Count 160 MPV 10.5 H Immature Gran % (Auto) 0.1 Neut % (Auto) 64.5 Lymph % (Auto) 23.0 [place] % (Auto) 10.2 Eos % (Auto) 1.9 Baso % (Auto) 0.3 Neut # (Auto) 4.49 Lymph # (Auto) 1.60 [place] # (Auto) 0.71 H Eos # (Auto) 0.13 Baso # (Auto) 0.02 Immature Gran # (Auto) 0.01 PT INR APTT PTT Ratio Sodium Potassium Chloride Carbon Dioxide Anion Gap BUN Creatinine Est Cr Clr Drug Dosing Est GFR ( Amer) Est GFR (Non-Af Amer) BUN/Creatinine Ratio Glucose Lactate Calcium Magnesium Total Bilirubin AST ALT Alkaline Phosphatase Total Protein Albumin Globulin Albumin/Globulin Ratio POC Stool Occult Blood Positive A Hepatitis C Ab Screen SARS-CoV-2, RNA, NAAT Blood Type O Negative Antibody Screen NEGATIVE 04/18/21 04/18/21 04/18/21 18:53 18:53 18:53 WBC RBC Hgb Hct MCV MCH MCHC RDW Std Deviation RDW Coeff of Michelle Plt Count MPV Immature Gran % (Auto) Neut % (Auto) Lymph % (Auto) [place] % (Auto) Eos % (Auto) Baso % (Auto) Neut # (Auto) Lymph # (Auto) [place] # (Auto) Eos # (Auto) Baso # (Auto) Immature Gran # (Auto) PT 10.8 INR 1.1 APTT 27.8 PTT Ratio 1.1 Sodium 139 Potassium 3.7 Chloride 106 Carbon Dioxide 23 Anion Gap 10.0 BUN 22 H Creatinine 1.15 Est Cr Clr Drug Dosing 59.2 Est GFR ( Amer) 72.3 Est GFR (Non-Af Amer) 62.3 BUN/Creatinine Ratio 19.1 Glucose 89 Lactate 1.2 Calcium 9.2 Magnesium Total Bilirubin 1.5 H AST 27 ALT 37 Alkaline Phosphatase 74 Total Protein 7.8 Albumin 3.9 Globulin 3.9 Albumin/Globulin Ratio 1.0 POC Stool Occult Blood Hepatitis C Ab Screen SARS-CoV-2, RNA, NAAT Blood Type Antibody Screen 04/18/21 04/19/21 04/19/21 22:18 07:38 07:38 WBC RBC Hgb Hct MCV MCH MCHC RDW Std Deviation RDW Coeff of Michelle Plt Count MPV Immature Gran % (Auto) Neut % (Auto) Lymph % (Auto) [place] % (Auto) Eos % (Auto) Baso % (Auto) Neut # (Auto) Lymph # (Auto) [place] # (Auto) Eos # (Auto) Baso # (Auto) Immature Gran # (Auto) PT INR APTT PTT Ratio Sodium 141 Potassium 3.6 Chloride 108 H Carbon Dioxide 25 Anion Gap 9.0 BUN 13 Creatinine 1.05 Est Cr Clr Drug Dosing 64.8 Est GFR ( Amer) 80.7 Est GFR (Non-Af Amer) 69.6 BUN/Creatinine Ratio 12.8 Glucose 112 H Lactate Calcium 9.2 Magnesium 2.0 Total Bilirubin 2.1 H AST 28 ALT 34 Alkaline Phosphatase 66 Total Protein 7.8 Albumin 3.9 Globulin 3.9 Albumin/Globulin Ratio 1.0 POC Stool Occult Blood Hepatitis C Ab Screen Pending SARS-CoV-2, RNA, NAAT NEGATIVE Blood Type Antibody Screen 04/19/21 08:05 WBC 9.10 RBC 5.08 Hgb 17.2 Hct 50.1 MCV 98.6 MCH 33.9 MCHC 34.3 RDW Std Deviation 48.2 H RDW Coeff of Michelle 13.4 Plt Count 160 MPV 11.0 H Immature Gran % (Auto) 0.1 Neut % (Auto) 64.0 Lymph % (Auto) 24.3 [place] % (Auto) 9.8 Eos % (Auto) 1.6 Baso % (Auto) 0.2 Neut # (Auto) 5.82 Lymph # (Auto) 2.21 [place] # (Auto) 0.89 H Eos # (Auto) 0.15 Baso # (Auto) 0.02 Immature Gran # (Auto) 0.01 PT INR APTT PTT Ratio Sodium Potassium Chloride Carbon Dioxide Anion Gap BUN Creatinine Est Cr Clr Drug Dosing Est GFR ( Amer) Est GFR (Non-Af Amer) BUN/Creatinine Ratio Glucose Lactate Calcium Magnesium Total Bilirubin AST ALT Alkaline Phosphatase Total Protein Albumin Globulin Albumin/Globulin Ratio POC Stool Occult Blood Hepatitis C Ab Screen SARS-CoV-2, RNA, NAAT Blood Type Antibody Screen Diagnostic Findings Abdomen/Pelvis CT 04/18/21 20:11 CT abd pelvis wo con CLINICAL HISTORY: diffuse abd pain, gi bleed COMPARISON STUDY: No previous studies for comparison. CT DOSE: 540.11 mGy.cm TECHNIQUE: Standard CT of the Abdomen and Pelvis was performed without IV contrast. The patient did not receive oral contrast. A dose lowering technique was utilized adhering to the principles of ALARA. FINDINGS: Lung base: The lung bases are clear. There is evidence for coronary artery calcification. Abdominal cavity and bowel: There is no evidence for abdominal mass, adenopathy or ascites. There is evidence for small sliding-type hiatal hernia. There is a right inguinal hernia containing a loop of small bowel. There is no evidence for incarceration, obstruction or edema. The remaining bowel loops are normally placed within the abdomen and pelvis without evidence for dilatation or obstruction. There is mild sigmoid diverticulosis without evidence for diverticulitis. No inflammatory changes or free air is seen. There is a normal appendix in the right lower quadrant. Liver: The liver is homogeneous in attenuation on these limited noncontrast images..There are a few subcentimeter sharply defined simple liver cysts. Spleen: The spleen is homogeneous in attenuation on these limited noncontrast images. Pancreas: The pancreas is homogeneous in attenuation on these limited noncontrast images. Gall Bladder: The gallbladder is well distended with no evidence for cholelithiasis, wall thickening or pericholecystic edema.. Adrenal glands: The adrenal glands are normal in size and attenuation on these limited noncontrast images. Kidneys: The kidneys are homogeneous in attenuation on these limited noncontrast images. There is no evidence for gross renal mass, calculus or hydronephrosis bilaterally. Bladder: There is no evidence for focal bladder wall thickening, calculus or diverticulum. : There is no evidence for pelvic mass or adenopathy. Vasculature: There is no evidence for focal aneurysmal dilatation of the abdominal aorta. Prominent atherosclerotic calcification is present. Osseous structures: There is no acute osseous pathology. Extensive degenerative changes are seen involving the lower lumbar spine. IMPRESSION: 1. Small sliding-type hiatal hernia. 2. Sigmoid diverticulosis without evidence for diverticulitis. 3. Right inguinal hernia containing loop of small bowel with no evidence for obstruction or incarceration. 4. No other evidence for acute intra-abdominal or pelvic abnormality on these limited noncontrast images. 5. Additional nonacute findings are delineated above. ACT 112: Negative or not required by law. Electronically signed by: Stephen Nolasco M.D. 04/18/2021 8:52 PM
[2021-04-19] MEDS: METOPROLOL SUCC 25MG EXT REL TAB PO SCH ×2 (10:41→21:05)
[2021-04-19] MEDS: ADVANCED PROBIOTIC 1250 MG CAPSULE PO SCH (10:41)
[2021-04-19] MEDS: MULTIVITAMIN TAB PO SCH (10:41)
[2021-04-19] MEDS: ATORVASTATIN 20 MG TAB PO SCH (10:41)
[2021-04-19] MEDS ORDERED: PROPOFOL IV EMULSION 10 MG/ML 20 ML VIAL IV ONE ×2 (13:27→15:40)
--- NOTE | 2021-04-19 15:13 | Anesthesiology Consultation ---
Date of Service April 19, 2021 Assessment & Plan Chart Review Chart Review: Acceptable Risk for Surgery and Patient NOT seen in Pre Admission Testing Consults Requested none ASA [id number] Proposed Anesthesia Anesthesia Type: MAC Additional Comments: covid test neg. History Surgery Operation Date: 04/19/21 13:15 Proposed Procedures p Colonoscopy - Martell Frye Height/Weight Height: 5 ft 7 in Weight: 84 kg Allergies Allergy/AdvReac Type Severity Reaction Status Date / Time indomethacin AdvReac Unknown anxiety Verified 07/29/17 22:30 Medications Home Medications Medication Instructions Recorded Confirmed Last Taken Bifidobacterium infantis 4 mg 4 mg PO QAM 04/18/21 04/18/21 04/18/21 capsule (Align) aspirin 81 mg tablet,delayed 81 mg PO QAM 04/18/21 04/18/21 04/18/21 release atorvastatin 20 mg tablet 20 mg PO QAM 04/18/21 04/18/21 04/18/21 losartan 50 mg tablet 50 mg PO HS 04/18/21 04/18/21 04/17/21 meloxicam 15 mg tablet 15 mg PO QAM 04/18/21 04/18/21 04/18/21 metoprolol succinate 25 mg 25 mg PO BID 04/18/21 04/18/21 04/18/21 tablet,extended release 24 hr multivitamin 1 tab PO QAM 04/18/21 04/18/21 04/18/21 trazodone 50 mg tablet 50 mg PO HS 04/18/21 04/18/21 04/17/21 Active Medications Generic Name Dose Route Start Last Admin Trade Name Freq PRN Reason Stop Dose Admin Atorvastatin Calcium 20 mg 04/19/21 09:00 04/19/21 10:41 Atorvastatin 20 Mg Tab PO 05/19/21 08:59 20 mg QAM VIC Administration Hydralazine HCl 10 mg 04/18/21 23:11 04/19/21 11:54 Hydralazine Hcl 20 Mg/Ml Vial IV 05/18/21 23:10 10 mg Q6H PRN Administration BP >200systolic >100 diastolic Lactobacillus Acidoph/Casei/Rhamnos 2 cap 04/19/21 09:00 04/19/21 10:41 Advanced Probiotic 1250 Mg Capsule PO 05/19/21 08:59 2 cap QAM VIC Administration Metoprolol Succinate 25 mg 04/19/21 09:00 04/19/21 10:41 Metoprolol Succ 25mg Ext Rel Tab PO 05/19/21 08:59 25 mg BID VIC Administration Multivitamins 1 tab 04/19/21 09:00 04/19/21 10:41 Multivitamin Tab PO 05/19/21 08:59 1 tab QAM VIC Administration Ondansetron HCl 4 mg 04/18/21 22:19 04/19/21 13:34 Ondansetron Inj 2 Mg/Ml 2 Ml Vial IV 05/18/21 22:18 4 mg Q6H PRN Administration Nausea NPO Date Last Intake of Fluids: 04/19/21 Time Last Intake of Fluids: 12:00 Date Last Intake of Solids: 04/17/21 Time Last Intake of Solids: 18:00 Past Medical History Medical History Hypertension Unstable angina Exercise / Class Metabolic Activity III < 4 Walking/Shop/Light housework Past Anesthesia History No Hx of Anesthesia Complications and No Family Hx of Anesthesia Complications History of PONV No Hx of PONV and No Hx of Motion Sickness Social History Smoking Status: Never smoker Hx Alcohol Use: Yes Alcohol type: beer alcohol intake frequency: 0-2 drinks per day Hx Substance Use: No Physical Exam Vital Signs Last Vital Signs Temp 36.8 C 04/19/21 15:11 Pulse 101 H 04/19/21 15:11 Resp 18 04/19/21 15:11 BP 163/105 H 04/19/21 15:11 Pulse Ox 97 04/19/21 15:11 Testing Laboratory Results 04/19/21 08:05 04/19/21 07:38 PT 10.8 Seconds (9.0-12.0) 04/18/21 18:53 INR 1.1 (0.9-1.1) 04/18/21 18:53 APTT 27.8 Seconds (21.0-31.0) 04/18/21 18:53 Blood Type O Negative 04/18/21 18:53 Antibody Screen NEGATIVE 04/18/21 18:53 Electrocardiogram Date: 04/18/21 Findings: + NSR @ (at 76;poss. inferior NV)
[2021-04-19] MEDS ORDERED: ePHEDrine sulfate 50 MG/ML AMP IV PRN (15:25)
[2021-04-19] MEDS ORDERED: ATROPINE SULFATE 0.1 MG/ML 10ML SYR IV PRN (15:25)
[2021-04-19] MEDS ORDERED: LIDOCAINE 2% 2 ML VIAL/AMP(20MG/ML) INFIL ONE (15:33)
[2021-04-19] MEDS ORDERED: LABETALOL HCL IV 5 MG/ML 20ML IV ONE (15:40)
--- NOTE | 2021-04-19 15:56 | GI REPORT ---
Patient Name: Bulmaro Gutierrez Procedure Date: 04/19/2021 3:09 PM Date of : 1945 Admit Type: Inpatient Age: 75 Gender: Male Attending MD: Martell Frye MD Procedure: Colonoscopy Providers: Martell Frye MD Referring MD: Jimmy Bentley Md Indications: Rectal bleeding Medicines: Monitored Anesthesia Care Complications: No immediate complications. Estimated blood loss: Minimal. Estimated Blood Loss: Estimated blood loss was minimal. Procedure: Pre-Anesthesia Assessment: - The risks and benefits of the procedure and the sedation options and risks were discussed with the patient. All questions were answered and informed consent was obtained. After I obtained informed consent, the scope was passed under direct vision. Throughout the procedure, the patient's blood pressure, pulse, and oxygen saturations were monitored continuously. The Colonoscope was introduced through the anus and advanced to the terminal ileum, with identification of the appendiceal orifice and IC valve. The colonoscopy was performed without difficulty. The patient tolerated the procedure well. Procedure and risks explained to patient which include but not limited to med reaction, bleeding, perforation, aspiration and missed lesions. Judicious gas insufflation and gas removal done on the way out. The lumen always well visualized when advancing the scope. Washes and suctioning used as needed for good visuzlization of mucosa. Prep was good. Retroflexion in the rectum to look at the distal rectum and anal canal done. Findings: The terminal ileum appeared normal. Two sessile polyps were found in the sigmoid colon. The polyps were 3 mm in size. These polyps were removed with a cold biopsy forceps. Resection and retrieval were complete. Estimated blood loss was minimal. Two sessile polyps were found in the rectum. The polyps were 3 mm in size. These polyps were removed with a cold biopsy forceps. Resection and retrieval were complete. Estimated blood loss was minimal. Multiple small-mouthed diverticula were found in the sigmoid colon. Patch pale mucosa throughout proximal rectum and sigmoid. Biopsies of pale mucosa in rectum taken with cold biopsy forceps. Estimated blood loss minimal. The exam was otherwise without abnormality on direct and retroflexion views. No fresh nor blood noted except as expected post biopsy. Impression: - The examined portion of the ileum was normal. - Two 3 mm polyps in the sigmoid colon, removed with a cold biopsy forceps. Resected and retrieved. - Two 3 mm polyps in the rectum, removed with a cold biopsy forceps. Resected and retrieved. - Diverticulosis in the sigmoid colon. - Patch pale mucosa throughout proximal rectum and sigmoid. Biopsies of pale mucosa in rectum taken with cold biopsy forceps. Estimated blood loss minimal. - The examination was otherwise normal on direct and retroflexion views. Recommendation: - [facility]. - Recommend CT angiogram of abdomen and pelvis to assess for blood flow to left colon. Martell Frye M.D. Martell Frye MD 04/19/2021 3:56:00 PM This report has been signed electronically. Note Initiated On: 04/19/2021 3:09 PM Number of Addenda: 0 I attest to the content of the Intraoperative Record and orders documented therein, exceptions below {[id number]}
--- NOTE | 2021-04-19 16:10 | Anesthesiology Progress Note ---
Date of Service April 19, 2021 Anesthesia Post Procedure Vital Signs Vital Signs: Temp Pulse Pulse Resp BP BP Pulse Ox 04/19/21 15:54 36.6 C 92 H 21 130/89 96 04/19/21 15:11 36.8 C 101 H 18 163/105 H 97 04/19/21 14:48 154/102 H 04/19/21 06:00 84 18 198/103 H 99 04/19/21 05:30 71 17 204/121 H 98 04/19/21 03:30 71 17 169/112 H 97 04/19/21 03:16 85 205/141 H 04/19/21 03:04 92 H 25 H 99 04/19/21 01:25 73 22 212/144 H 99 04/18/21 23:11 85 21 205/141 H 98 04/18/21 22:43 73 18 196/110 H 99 04/18/21 22:00 73 20 201/132 H 97 04/18/21 20:57 84 20 179/118 H 98 04/18/21 18:49 82 18 98 04/18/21 18:44 36.7 C 84 20 199/117 H 97 04/18/21 18:38 82 18 185/128 H 98 Transfer of Care Handoff Completed per policy Notes Mental Status: alert / awake / arousable Patient Amnestic to Procedure: Yes Nausea / Vomiting: adequately controlled Pain: adequately controlled Airway Patency, RR, SpO2: stable & adequate BP & HR: stable & adequate Hydration State: stable & adequate Anesthetic Complications: no major complications apparent
[2021-04-19] MEDS ORDERED: OPTIRAY 320 125ml IV ONE (16:41)
--- NOTE | 2021-04-19 16:45 | Hospitalist Progress Note ---
Date of Service April 19, 2021 Assessment & Plan (1) Acute GI bleeding: Plan: Likely diverticular. Colonoscopy on 04/19 showed no active bleeding. - Will get CTA a/p in case there was some ischemic bowel that occurred as GI physician noted some pale mucosa. - Hgb stable at 17. Monitor. (2) Hypertension: Plan: BP today is 135/80. - Continue home beta-judith - Hold losartan until tomorrow (3) Heart disease: Plan: Prior stress test on 07/28/2014 showed baseline RCA territory infarct. No stents then or otherwise. - Hold ASA for now, but likely resume in 1 week. Can discuss with PCP pros/cons given this episode of bleeding. - Continue statin (4) DVT prophylaxis: Plan: SCDs - Holding heparin for bleeding Admission and Anticipated Discharge Date Admission Date: April 18, 2021 Subjective Doing well today. Seen after prep, but before colonoscopy. No major issues. BMs were clear by that point. Physical Exam Constitutional: WD/WN, vitals as above Eyes: EOM intact bilaterally; no conjunctival abnormality ENMT: external ear and nose normal, oropharynx normal Neck: trachea midline, no thyromegaly normal visual inspection Respiratory: normal respiratory effort, lungs clear to auscultation no respiratory distress Cardiovascular: RRR, no murmur, no edema Gastrointestinal (Abdomen): Inspection/Auscultation: abdomen normal to inspection; abdomen not distended Musculoskeletal: no cyanosis or clubbing, extremities motor strength 5/5 Skin: no rashes, warm and dry Neurologic: moves all extremities and awake Psychiatric: Orientation: alert, oriented to person and cooperative Results & Data Results & Data ([facility]) Vital Signs (Past 12 Hours) Vital Signs Temp Pulse Pulse Resp BP BP Pulse Ox 04/19/21 16:15 36.4 C L 82 15 134/81 96 04/19/21 16:05 86 27 H 130/89 96 04/19/21 15:54 36.6 C 92 H 21 130/89 96 04/19/21 15:11 36.8 C 101 H 18 163/105 H 97 04/19/21 14:48 154/102 H 04/19/21 06:00 84 18 198/103 H 99 04/19/21 05:30 71 17 204/121 H 98 PG Care Time/CCT Total # of Minutes Spent Total Time Spent with Patient: Total time spent is greater than 50% in coordination of care (as documented) at patient's floor/unit and/or counseling patient: Coding Level of Care Code 87208 Subseq Hosp Care Lvl 3 Diagnoses Acute GI bleeding K92.2 Hypertension I10 Heart disease I51.9 DVT prophylaxis Z29.9
--- NOTE | 2021-04-19 16:58 | CT Scan Report ---
CT angio abdomen pelvis w con CLINICAL HISTORY: 75 years-old Male with Concern for ischemic bowel acute generalized abdominal pa in COMPARISON STUDY: CT abdomen and pelvis 04/18/2021 TECHNIQUE: Following the IV administration of 116 cc of Optiray, CT angiogram of the abdomen and pelv is was performed from the lung bases the proximal femora. Images are reviewed in the axial, sagittal, and coronal planes. 3-D MIPS images are created and assessed. All measurements were obtained accordi ng to NASCET criteria. IV contrast was administered without complication. A dose lowering technique was utilized adhering to the principles of ALARA. CT DOSE: 532.38 mGy.cm FINDINGS: CTA: The heart is upper limits of normal in size. Moderate to extensive atherosclerosis of the abdominal a karley with mild ectasia measuring up to 2.6 x 2.5 cm. No aneurysm or dissection. The celiac trunk, sup erior and inferior mesenteric arteries are patent. The renal arteries are patent bilaterally. The lauri ac and imaged femoral arteries are patent. CT ABDOMEN AND PELVIS: Clear lung bases. No pneumatosis or pneumoperitoneum. Unremarkable spleen, pancreas, gallbladder, and adrenal glands. There are several scattered hypodense foci again noted throughout the liver suggesti ve of cysts measuring up to approximately 2 cm. Mild nonspecific bilateral perinephric stranding. No renal or ureteral calculi or hydronephrosis. Symmetric bilateral enhancement. Prostatectomy. Urinary bladder wall thickening with partial distention. Small right greater than left inguinal hernias. The right inguinal hernia contains a nonobstructed loop of small bowel. No adenopathy. No bowel obstruction or bowel wall thickening. Colonic diverticulosis. Scattered large bowel air-flui d levels. Normal appendix. No ascites or mesenteric inflammation. Unremarkable soft tissues. There is no acute fracture. Degenerative changes of the spine, pelvis and hips. IMPRESSION: 1. No acute intra-abdominal or intrapelvic abnormality. 2. Unremarkable CTA. 3. Colonic diverticulosis without acute diverticulitis. 4. Small bilateral inguinal hernias are redemonstrated, right greater than left with the right inguin al hernia containing mesenteric fat and nonobstructed ileum. 5. Incidental findings as above. ACT 112: Negative or not required by law. The above report was generated using voice recognition software. It may contain grammatical, syntax o r spelling errors. Electronically signed by: Jonathan Mancera M.D. 04/19/2021 4:57 PM
[2021-04-19] MEDS ORDERED: traZODone HCL 50 MG TAB PO SCH (21:00)
--- NOTE | 2021-04-20 03:46 | Billing Data ---
Date of Service April 20, 2021 Coding Level of Care Code INT OBSERVATION CARE 71M LVL 3
[2021-04-20 06:31] LABS: Basophils # (auto) 0.02 K/uL (0-0.2); Basophils % (auto) 0.3 %; Hematocrit (blood only) 44.3 % (42-52); Hemoglobin 15.2 g/dL (14.0-18.0); Immature Granulocytes # (auto) 0.01 K/uL (0.00-0.02); Immature Granulocytes % (auto) 0.1 %; Lymphocytes # (auto) 2.02 K/uL (1.2-3.4); Lymphocytes % (auto) 26.8 %; Mean Corpuscular Hemoglobin 33.9 pg (25-34); Mean Corpuscular Hgb Conc 34.3 g/dL (32-36); Mean Corpuscular Volume 98.7 fL (80-100); Mean Platelet Volume 10.7 fL (7.4-10.4); Monocytes # (auto) 1.04 K/uL (0.11-0.59); Monocytes % (auto) 13.8 %; Neutrophils # (auto) 4.16 K/uL (1.4-6.5); Platelet Count 136 K/uL (130-400); RDW Coefficient of Variation 13.7 % (11.5-14.5); Red Blood Count 4.49 M/uL (4.7-6.1); White Blood Count 7.55 K/uL (4.8-10.8)
[2021-04-20 07:06] LABS: BUN Creatinine Ratio 12.7 (10-20); Calcium 8.7 mg/dl (8.5-10.1); Creatinine Clr Calc Pharmacy 51.7 ml/min; Est GFR (African American) 62.9 ml/min; Est GFR (Non-African American) 54.3 ml/min; Potassium 3.4 mmol/L (3.5-5.1)
--- NOTE | 2021-04-20 07:35 | Gastroenterology Progress Note ---
Date of Service April 20, 2021 Assessment & Plan (1) Acute GI bleeding: Plan: No bleeding through the night or this morning. H&H stable. Tolerating po diet. Colonoscopy findings demonstrated a few 3mm polyps (pathology pending), diverticulosis, and pale mucosa in the sigmoid and rectum. CT angio A/P without acute intra-abdominal or intrapelvic abnormality. Anticipate discharge today. Please refer to supervising physician addendum for further recommendations. Admission and Anticipated Discharge Date Admission Date: April 18, 2021 Supervising Physician Co-Signing Physician Notes Above noted. Pt not seen. He was DCed prior to my rounds. Subjective Patient awake, alert, and oriented this morning. He is eating breakfast sitting at bedside. Denies any bleeding through the night. Denies abdominal pain, nausea or vomiting. Tolerated regular diet for dinner and this morning for breakfast. + flatus. No bowel movement today. Review of Systems Review of Systems: All systems reviewed & are unremarkable except as noted in Subjective Physical Exam Gastrointestinal (Abdomen): normal bowel sounds, soft, nontender, no hepatosplenomegaly Results & Data ([facility]) Vital Signs (Past 12 Hours) Vital Signs Temp Pulse Pulse Resp BP Pulse Ox 04/20/21 04:00 37.3 C 83 16 93/64 L 97 04/20/21 00:00 36.9 C 68 18 130/81 96 04/19/21 20:00 36.8 C 82 16 126/81 96 Laboratory Results Laboratory Results - last 24 hr 04/19/21 04/19/21 04/19/21 07:38 07:38 08:05 WBC 9.10 RBC 5.08 Hgb 17.2 Hct 50.1 MCV 98.6 MCH 33.9 MCHC 34.3 RDW Std Deviation 48.2 H RDW Coeff of Michelle 13.4 Plt Count 160 MPV 11.0 H Immature Gran % (Auto) 0.1 Neut % (Auto) 64.0 Lymph % (Auto) 24.3 [place] % (Auto) 9.8 Eos % (Auto) 1.6 Baso % (Auto) 0.2 Neut # (Auto) 5.82 Lymph # (Auto) 2.21 [place] # (Auto) 0.89 H Eos # (Auto) 0.15 Baso # (Auto) 0.02 Immature Gran # (Auto) 0.01 Sodium 141 Potassium 3.6 Chloride 108 H Carbon Dioxide 25 Anion Gap 9.0 BUN 13 Creatinine 1.05 Est Cr Clr Drug Dosing 64.8 Est GFR ( Amer) 80.7 Est GFR (Non-Af Amer) 69.6 BUN/Creatinine Ratio 12.8 Glucose 112 H Calcium 9.2 Magnesium 2.0 Total Bilirubin 2.1 H AST 28 ALT 34 Alkaline Phosphatase 66 Total Protein 7.8 Albumin 3.9 Globulin 3.9 Albumin/Globulin Ratio 1.0 Hepatitis C Ab Screen Neg 04/20/21 04/20/21 06:02 06:02 WBC 7.55 RBC 4.49 L Hgb 15.2 Hct 44.3 MCV 98.7 MCH 33.9 MCHC 34.3 RDW Std Deviation 49.0 H RDW Coeff of Michelle 13.7 Plt Count 136 MPV 10.7 H Immature Gran % (Auto) 0.1 Neut % (Auto) 55.0 Lymph % (Auto) 26.8 [place] % (Auto) 13.8 Eos % (Auto) 4.0 Baso % (Auto) 0.3 Neut # (Auto) 4.16 Lymph # (Auto) 2.02 [place] # (Auto) 1.04 H Eos # (Auto) 0.30 Baso # (Auto) 0.02 Immature Gran # (Auto) 0.01 Sodium 138 Potassium 3.4 L Chloride 107 Carbon Dioxide 24 Anion Gap 7.0 BUN 16 Creatinine 1.29 Est Cr Clr Drug Dosing 51.7 Est GFR ( Amer) 62.9 Est GFR (Non-Af Amer) 54.3 BUN/Creatinine Ratio 12.7 Glucose 102 H Calcium 8.7 Magnesium Total Bilirubin AST ALT Alkaline Phosphatase Total Protein Albumin Globulin Albumin/Globulin Ratio Hepatitis C Ab Screen Diagnostic Findings 04/19/2021: Colonoscopy demonstrated - The examined portion of the ileum was normal. - Two 3 mm polyps in the sigmoid colon, removed with a cold biopsy forceps. Resected and retrieved. - Two 3 mm polyps in the rectum, removed with a cold biopsy forceps. Resected and retrieved. - Diverticulosis in the sigmoid colon. - Patch pale mucosa throughout proximal rectum and sigmoid. Biopsies of pale mucosa in rectum taken with cold biopsy forceps. Estimated blood loss minimal. - The examination was otherwise normal on direct and retroflexion views. Abdomen/Pelvis CTA 04/19/21 16:01 CT angio abdomen pelvis w con CLINICAL HISTORY: 75 years-old Male with Concern for ischemic bowel acute generalized abdominal pain COMPARISON STUDY: CT abdomen and pelvis 04/18/2021 TECHNIQUE: Following the IV administration of 116 cc of Optiray, CT angiogram of the abdomen and pelvis was performed from the lung bases the proximal femora. Images are reviewed in the axial, sagittal, and coronal planes. 3-D MIPS images are created and assessed. All measurements were obtained according to NASCET criteria. IV contrast was administered without complication. A dose lowering technique was utilized adhering to the principles of ALARA. CT DOSE: 532.38 mGy.cm FINDINGS: CTA: The heart is upper limits of normal in size. Moderate to extensive atherosclerosis of the abdominal aorta with mild ectasia measuring up to 2.6 x 2.5 cm. No aneurysm or dissection. The celiac trunk, superior and inferior mesenteric arteries are patent. The renal arteries are patent bilaterally. The iliac and imaged femoral arteries are patent. CT ABDOMEN AND PELVIS: Clear lung bases. No pneumatosis or pneumoperitoneum. Unremarkable spleen, pancreas, gallbladder, and adrenal glands. There are several scattered hypodense foci again noted throughout the liver suggestive of cysts measuring up to approximately 2 cm. Mild nonspecific bilateral perinephric stranding. No renal or ureteral calculi or hydronephrosis. Symmetric bilateral enhancement. Prostatectomy. Urinary bladder wall thickening with partial distention. Small right greater than left inguinal hernias. The right inguinal hernia contains a nonobstructed loop of small bowel. No adenopathy. No bowel obstruction or bowel wall thickening. Colonic diverticulosis. Scattered large bowel air-fluid levels. Normal appendix. No ascites or mesenteric inflammation. Unremarkable soft tissues. There is no acute fracture. Degenerative changes of the spine, pelvis and hips. IMPRESSION: 1. No acute intra-abdominal or intrapelvic abnormality. 2. Unremarkable CTA. 3. Colonic diverticulosis without acute diverticulitis. 4. Small bilateral inguinal hernias are redemonstrated, right greater than left with the right inguinal hernia containing mesenteric fat and nonobstructed ileum. 5. Incidental findings as above. ACT 112: Negative or not required by law. The above report was generated using voice recognition software. It may contain grammatical, syntax or spelling errors. Electronically signed by: Jonathan Mancera M.D. 04/19/2021 4:57
[2021-04-20] MEDS: ATORVASTATIN 20 MG TAB PO SCH (07:38)
[2021-04-20] MEDS: METOPROLOL SUCC 25MG EXT REL TAB PO SCH (07:38)
[2021-04-20] MEDS: MULTIVITAMIN TAB PO SCH (07:38)
[2021-04-20] MEDS: ADVANCED PROBIOTIC 1250 MG CAPSULE PO SCH (07:39)
[2021-04-20 10:16] LABS: Albumin Level 3.1 gm/dl (3.4-5.0); Bilirubin Direct 0.3 mg/dl (0-0.2); Bilirubin,Total 2.1 mg/dl (0.2-1); Total Protein 6.5 gm/dl (6.4-8.2)
--- NOTE | 2021-04-20 14:55 | Discharge Summary ---
Date of Service April 20, 2021 Admission HPI Per Admitting Provider 75 yo M Hx angina, HTN, DJD presents for 5 episodes of blood diarrhea since 4pm. He does not endorse chest pain, SOB, nausea, vomiting, abdominal pain. No prior history of GIB. In the ER Hgb was 17, HTN to 190s/110s, labs otherwise normal. CTAP with diverticulosis without diverticulitis or other noted acute pathology. Dr. Jamison with GI recommended colonoscopy in AM given several episodes of bloody stools in ER. Hospitalist service consulted for admission. Principal Diagnosis Likely diverticular bleeding Discharge Exam Constitutional WD/WN, vitals as above Eyes EOM intact bilaterally; no conjunctival abnormality ENMT external ear and nose normal, oropharynx normal Neck trachea midline, no thyromegaly normal visual inspection Respiratory normal respiratory effort, lungs clear to auscultation no respiratory distress Cardiovascular RRR, no murmur, no edema Gastrointestinal (Abdomen) Inspection/Auscultation: abdomen normal to inspection; abdomen not distended Musculoskeletal no cyanosis or clubbing, extremities motor strength 5/5 Skin no rashes, warm and dry Neurologic moves all extremities and awake Psychiatric Orientation: alert, oriented to person and cooperative Discharge Data Allergies Allergy/AdvReac Type Severity Reaction Status Date / Time indomethacin AdvReac Unknown anxiety Verified 07/29/17 22:30 Consultations 04/18/21 22:01 ED Decision to Admit Stat 04/18/21 23:11 Consult Gastroenterology Routine Procedures Performed Operation Date: 04/19/21 13:15 Actual Procedures p Colonoscopy Polypectomy - Martell Frye Ordered Studies 04/18/21 20:11 CT abd pelvis wo con Stat 04/19/21 16:01 CT angio abdomen pelvis w con Urgent Hospital Course (1) Acute GI bleeding: Likely diverticular. Colonoscopy on 04/19 showed no active bleeding. - CTA a/p on 04/19 showed no vascular stenosis of gastric arteries. - Hgb stable at 17. Overall. Down slightly on discharge, but still at 15 g/dL. 1) Encouraged to hold ASA x 1 week, then restart. 2) Encouraged to stop meloxicam as he was not sure if it was helping much anyhow as he had been on it for years. (2) Hypertension: BP today is 135/80. - Continue home beta-judith - Held losartan until sees PCP unless BP returns to normal (BP was as low as 95/65 in AM). Can restart sooner if BP returns to normal. (3) Heart disease: Prior stress test on 07/28/2014 showed baseline RCA territory infarct. No stents then or otherwise. - Hold ASA for now, but resume in 1 week. Can discuss with PCP pros/cons given this episode of bleeding. - Continue statin (4) DVT prophylaxis: SCDs - Holding heparin for bleeding Total Time Total Time Spent Total Time Spent (In Minutes): 35 Discharge Plan Discharge Items Patient Disposition: Home - Self-Care Reason For Visit: ACUTE GIB Discharge Diagnosis: Likely diverticular bleeding Activity: Resume your previous activity Non-emergency contact: Primary Care Provider Call non-emergency contact if: your symptoms worsen Follow-up/Referrals: Martell Cantu [Primary Care Provider] - 04/26/21 9:45 am Diet: Regular Addtl Attending Provider Instructions: Mr. Gutierrez, You were admitted to the hospital with bleeding from your GI tract. This was likely caused by bleeding from a diverticulum (small outpouching of the large intestine). Fortunately, these usually resolve on their own as yours did. However, they can bleed again in the future. The only way to truly prevent the bleeding is by removing that section of large intestine which we usually try to avoid unless you have multiple episodes of bleeding. To reduce the chances of recurrent bleeding, try to eat plenty of fiber and take Miralax if you experience constipation. Please see your PCP at your scheduled appointment to discuss whether or not to continue taking aspirin. As we discussed, for people with heart disease, aspirin has been shown to prevent further heart attacks and . However, it does increase the risk of this bleeding occurring again. Please hold you aspirin for 5 more days (restart on 04/25/2021), then take it daily until you discuss it with your PCP. Meloxicam can also increase your risk of bleeding, so please hold this if able until able to discuss with your PCP. Finally, we held your losartan while here. You lost some blood (about 2 units it looks like), and your blood pressure is running on the low side. Please check it at home for the next few days, and if it returns to normal, you can restart your losartan. Pending Studies at Discharge: No Stand-Alone Forms: My [facility], Smoking Cessation Medications and DC Order Prescriptions: Continued multivitamin Tablet 1 tab PO QAM RF: 0 atorvastatin 20 mg tablet 20 mg PO QAM RF: 0 trazodone 50 mg tablet 50 mg PO HS RF: 0 metoprolol succinate 25 mg tablet extended release 24 hr 25 mg PO BID RF: 0 Align 4 mg Capsule 4 mg PO QAM RF: 0 Discontinued losartan 50 mg tablet 50 mg PO HS RF: 0 meloxicam 15 mg tablet 15 mg PO QAM RF: 0 aspirin 81 mg tablet,delayed release (DR/EC) 81 mg PO QAM RF: 0 Discharge Orders: Discharge Order (Routine); Ordered 04/20/21 Ordered By: Jimmy Bentley Admission Data Admit Date/Time: 04/18/21 22:19 Attending Provider: Jimmy Bentley Admit Provider: Brandi Bolton Primary Care Provider: Martell Cantu Other Providers: Jasiel Jamison ; Jimmy Bentley Other Interventions: Discharge Summary Assessment (RN) Last Done: 04/20/21 11:01 Coding Level of Care Code 30787 OBS Care - Discharge Diagnoses Acute GI bleeding K92.2 Hypertension I10 Heart disease I51.9 DVT prophylaxis Z29.9
--- NOTE | 2021-04-20 22:10 | Electrocardiogram Report ---
Test Reason : Blood Pressure : / mmHG Vent. Rate : 075 BPM Atrial Rate : 075 BPM P-R Int : 138 ms QRS Dur : 082 ms QT Int : 384 ms P-R-T Axes : 036 018 025 degrees QTc Int : 428 ms Normal sinus rhythm Cannot rule out Inferior infarct , age undetermined Abnormal ECG When compared with ECG of 19-NOV-2016 05:42, No significant change was found Confirmed by Jorge Joshi ([id number]) on 04/20/2021 10:09:52 PM Referred By: REFERRED SELF Confirmed By:Jorge Joshi
== END 2021-04-20 11:55 | disposition home or self-care (01) ==
LOC: EDINP 18:38 → ED 18:38 → SUATTDRO 22:19 → 2N 23:00
DX: Z20.822 Contact with and (suspected) exposure to COVID-19; K40.91 Unilateral inguinal hernia, without obstruction or gangrene, recurrent; M19.011 Primary osteoarthritis, right shoulder; I11.9 Hypertensive heart disease without heart failure; K44.0 Diaphragmatic hernia with obstruction, without gangrene; Z79.82 Long term (current) use of aspirin; I20.0 Unstable angina; K63.5 Polyp of colon; Z29.9 Encounter for prophylactic measures, unspecified; K92.2 Gastrointestinal hemorrhage, unspecified; Z79.899 Other long term (current) drug therapy; Z88.8 Allergy status to other drugs, medicaments and biological substances; K57.30 Diverticulosis of large intestine without perforation or abscess without bleeding

== ENCOUNTER 2022-09-14 15:00 | Inpatient (IN) ==
--- NOTE | 2022-09-14 15:10 | ED Triage Note ---
Date of Service September 14, 2022 History of Present Illness This patient was briefly evaluated while in triage. An abbreviated physical exam was performed. This patient is a 77-year-old Male who presents to the ED for evaluation of abnormal left lower extremity arterial duplex. Patient reports left foot pain, numbness and coolness since Monday. He thought he injured it somehow on Monday. His PCP ordered an arterial duplex which he just had done prior to arrival and was told to come to ED for further evaluation following results. He is ambulatory in triage. Physical Exam Constitutional: alert and oriented x3. no acute distress. HEENT: normocephalic, atraumatic. normal conjunctiva.EOM's grossly intact. Respiratory: lungs are clear to auscultation without wheezes, rhonchi, or rales bilaterally. equal chest rise. normal respiratory effort, no accessory muscle use. Cardiovascular: normal heart sounds without murmur. regular rate and rhythm. GI: abdomen is soft, nontender. No palpable masses. No rebound tenderness or guarding. MSK: no obvious bony deformity LLE. Peripheral vascular: extremities warm and well perfused. nonpalpable DP/PT LLE. Motor and sensation intact. Psych:appropriate mood and affect. Initial orders for labs and / or imaging were placed and patient was placed in the waiting area until a bed is available. Please see further documentation for the full ED course.
[2022-09-14] MEDS ORDERED: Heparin IV Adult Wt-Based Standard WITH Bolus Protocol IV STA (15:38)
--- NOTE | 2022-09-14 15:43 | Emergency Department Note ---
Impression & Plan Arterial occlusion, DVT (deep venous thrombosis), Acute leg pain, Ischemic leg ED Provider Note NAME: AMBERLY CUENCA AGE: 77 SEX: M : 1945 ARRIVES VIA: Walk-In INFORMANT: Patient ED PROVIDER(S): Sampson Smith DO CHIEF COMPLAINT: leg pain HPI: Patient is a 77-year-old male who presents to the ER for left leg pain. She notes this started last Monday night when he was walking into the house. He stumbled and was having pain in the calf. He has been having worsening pain since then. He notes it is cool and pale. He had ultrasound today and was referred in by his PCP. He is not a smoker. Denies any other trauma. No headache or change in vision. No chest pain or shortness of breath. No nausea, vomiting, or diarrhea. Does admit to a previous history of a GI bleed without transfusion secondary to taking meloxicam. No previous brain bleeds. No recent trauma or recent surgery. No coughing up blood, pooping blood, or peeing blood. PAST MEDICAL HISTORY:See Below PAST SURGICAL HISTORY:See Below FAMILY HISTORY:See Below SOCIAL HISTORY:See Below HOME MEDICATIONS:See Below ALLERGIES:See Below VITALS:See Below PHYSICAL EXAMINATION: GENERAL: Sitting up in bed, alert, well appearing, well nourished, no distress, non-toxic EYE EXAM: normal conjunctiva. OROPHARYNX: no exudate, no erythema, lips, buccal mucosa, and tongue normal and mucous membranes are moist NECK: supple, no nuchal rigidity, no adenopathy, non-tender LUNGS: Clear to auscultation. Normal chest wall mechanics HEART: no murmurs, S1 normal and S2 normal ABDOMEN: abdomen soft, non-tender, normo-active bowel sounds, no masses, no rebound or guarding. UPPER EXTREMITIES: upper extremities are grossly normal. LOWER EXTREMITIES: Left foot pedal without DP or PT. Skin is cool. NEURO EXAM: Normal sensorium, cranial nerves II-XII grossly intact, normal speech, no gross weakness of arms, no gross weakness of legs. MEDICAL DECISION MAKING: Patient is a 77-year-old male referred in for the above-stated complaint. IV was established blood work was obtained. Labs show no significant leukocytosis or anemia. INR unremarkable. BMP with slightly elevated chloride. LFTs was unremarkable. Lactate was normal. Patient was typed and screened. COVID- negative. Upon arrival he had an ultrasound performed as an outpatient which showed DVT as well as an arterial occlusion. I discussed this personally with Dr. Chow who recommended heparin drip and bolus which I did start and admit him to the hospital service. He will likely go to the OR tomorrow morning and he recommended n.p.o. I updated the patient in regards to this. I discussed this with the hospitalist. Patient was admitted to Dr. Paul Baird for further evaluation management treatment. Risk and benefits of heparin drip were discussed with the patient at bedside as he has had a previous GI bleed which he notes was secondary to taking too much meloxicam. He was never transfused. I do favor this is a low risk specially in light of ischemic limb. Heparin was started and will monitor closely. Triage Nursing notes reviewed. Limited review of prior medical records performed Vital Signs: reviewed and remarkable for htn Differential diagnosis: DVT, musculoskeletal, infection, joint effusion, trauma, lymphedema, idiopathic, CHF, as well as other pathologies. ER treatment provided: See below Diagnostics interpreted by me include EKG and cardiac monitoring as listed below: -Cardiac Monitoring: An order was placed for continuous cardiac monitoring. The monitor shows a rate of 80 with sinus rhythm. -ECG: Sinus rhythm rate 67 Normal axis No PVCs QTc 433 -Laboratory studies:Interpreted by me as stated above in MDM and shown below. Imaging studies: Xrays: As interpreted by me:none CTs show: none Ultrasound/external records were reviewed which showed a DVT and arterial occlusion Consultation(s): Discussed with Dr. Chow as described above as well as the hospitalist Procedures:none Critical Care: I have personally spent 32 minutes of critical care time in the direct management of this patient. This includes bedside care, interpretation of diagnostic studies, and testing, discussion with consultants, patient, and family members, and other required patient management activities. This 32 minutes is in excess of all separately billable procedures. Past Med/Surg History Medical History (Updated 09/14/22 @ 19:56 by Paul Baird MD) History of myocardial infarction DISCUSSED INCIDENTAL FINDING/NO HX INTERVENTION History of prostate cancer 2005/SX INTERVENTION History of rectal bleeding COLONOSCOPY FOR MAR 2021 - NO FINDINGS RE-OCCURENCE RECTAL BLEEDING AUGUST 2021 - REASON FOR UPCOMING EGD Hyperlipidemia Hypertension Surgical History History of cataract surgery BILAT History of colonoscopy History of hernia surgery History of prostatectomy History of shoulder surgery RX1, LX1 METAL CAP PLACED TO REPLACE JOINT ON BOTH SHOULDERS Family History Brother Family history of colon cancer Other Cancer No family history of adverse response to anesthesia No family history of bleeding disorder Stroke Social History Smoking Status: Never smoker Do You Dip or Chew Tobacco: No; Hx Alcohol Use: Yes Alcohol type: beer Hx Substance Use: No Preferred Language: Bulgarian Communication Ability: Effective Exchange Architect Required: No Beliefs That Will Affect Care: None Current Living Situation: Alone Feels Safe at Home: Yes Assistive Devices: Glasses Allergies Allergies Allergy/AdvReac Type Severity Reaction Status Date / Time indomethacin AdvReac Unknown 40 YR AGO, Verified 11/25/21 15:09 anxiety Home Meds Home Medications Medication Instructions Recorded Confirmed atorvastatin 20 mg tablet 20 mg PO QPM 04/18/21 09/14/22 multivitamin 1 tab PO QAM 04/18/21 09/14/22 trazodone 50 mg tablet 50 mg PO HS 04/18/21 09/14/22 losartan 50 mg tablet 50 mg PO QAM 07/12/21 09/14/22 allopurinol 100 mg tablet 200 mg PO DAILY 09/14/22 09/14/22 metoprolol succinate 25 mg 50 mg PO QAM 09/14/22 09/14/22 tablet,extended release 24 hr Previous Rx's Medication Instructions Recorded pantoprazole 40 mg tablet,delayed 40 mg PO DAILY #90 tabs 02/24/22 release Results & Data (ED) Vital Signs Vital Signs - 24 hr 09/14/22 15:08 Temperature 36.6 C Temperature Source Temporal Artery Scan Pulse Rate 82 Respiratory Rate 20 Respiratory Effort / Characteristics Non-Labored Spontaneous Respiratory Depth Normal Blood Pressure 205/115 H Blood Pressure Mean 145 Pulse Oximetry 99 Oxygen Delivery Method Room Air Sepsis New/Unexplained Change in Mental Status No Sepsis Action Taken by Nursing No Action Required Laboratory Data 09/14/22 16:26 09/14/22 16:26 Lab Results 09/14/22 09/14/22 09/14/22 Range/Units 16:26 16:26 16:26 WBC 7.08 (4.8-10.8) K/ul RBC 4.65 L (4.70-6.10) M/uL Hgb 15.6 (14.0-18.0) g/dl Hct 44.1 (42.0-52.0) % MCV 94.8 (80.0-100.0) fL MCH 33.5 (25.0-34.0) pg MCHC 35.4 (32.0-36.0) g/dL RDW Std Deviation 47.8 H (36.4-46.3) fL RDW Coeff of Michelle 13.7 (11.5-14.5) % Plt Count 158 (130-400) K/uL MPV 10.1 (9.4-12.4) fL Immature Gran % (Auto) 0.4 % Neut % (Auto) 58.5 % Lymph % (Auto) 28.4 % Cassia % (Auto) 9.9 % Eos % (Auto) 2.4 % Baso % (Auto) 0.4 % Neut # (Auto) 4.14 (1.40-6.50) K/uL Lymph # (Auto) 2.01 (1.2-3.4) K/uL Cassia # (Auto) 0.70 H (0.11-0.59) K/uL Eos # (Auto) 0.17 (0-0.50) K/uL Baso # (Auto) 0.03 (0-0.2) K/uL Immature Gran # (Auto) 0.03 (0.01-0.20) K/uL PT 10.9 (9.0-12.0) Seconds INR 1.0 (0.9-1.1) APTT 29.3 (21.0-31.0) Seconds PTT Ratio 1.0 Sodium 140 (136-145) mmol/L Potassium 3.7 (3.5-5.1) mmol/L Chloride 109 H (98-107) mmol/L Carbon Dioxide 25 (21-32) mmol/L Anion Gap 6 (3-11) BUN 13 (6-23) mg/dl Creatinine 1.02 (0.6-1.4) mg/dl Est Cr Clr Drug Dosing 63.9 ml/min Est GFR ( Amer) 82.4 ml/min Est GFR (Non-Af Amer) 71.1 ml/min BUN/Creatinine Ratio 12.7 (10-20) Glucose 84 (70-99(Fasting)) mg/dl Lactate (0.4-2.0) mmol/L Calcium 9.5 (8.6-10.3) mg/dl Total Bilirubin 1.3 H (0.2-1.0) mg/dl AST 34 (13-39) U/L ALT 25 (7-52) U/L Alkaline Phosphatase 65 (34-104) U/L Total Protein 7.4 (6.0-8.3) gm/dl Albumin 4.2 (3.4-5.0) gm/dl Globulin 3.2 (2.5-4.0) gm/dl Albumin/Globulin Ratio 1.3 (0.9-2) SARS-CoV-2, RNA, NAAT (NEGATIVE) Blood Type Antibody Screen 09/14/22 09/14/22 09/14/22 Range/Units 16:26 16:26 16:59 WBC (4.8-10.8) K/ul RBC (4.70-6.10) M/uL Hgb (14.0-18.0) g/dl Hct (42.0-52.0) % MCV (80.0-100.0) fL MCH (25.0-34.0) pg MCHC (32.0-36.0) g/dL RDW Std Deviation (36.4-46.3) fL RDW Coeff of Michelle (11.5-14.5) % Plt Count (130-400) K/uL MPV (9.4-12.4) fL Immature Gran % (Auto) % Neut % (Auto) % Lymph % (Auto) % Cassia % (Auto) % Eos % (Auto) % Baso % (Auto) % Neut # (Auto) (1.40-6.50) K/uL Lymph # (Auto) (1.2-3.4) K/uL Cassia # (Auto) (0.11-0.59) K/uL Eos # (Auto) (0-0.50) K/uL Baso # (Auto) (0-0.2) K/uL Immature Gran # (Auto) (0.01-0.20) K/uL PT (9.0-12.0) Seconds INR (0.9-1.1) APTT (21.0-31.0) Seconds PTT Ratio Sodium (136-145) mmol/L Potassium (3.5-5.1) mmol/L Chloride (98-107) mmol/L Carbon Dioxide (21-32) mmol/L Anion Gap (3-11) BUN (6-23) mg/dl Creatinine (0.6-1.4) mg/dl Est Cr Clr Drug Dosing ml/min Est GFR ( Amer) ml/min Est GFR (Non-Af Amer) ml/min BUN/Creatinine Ratio (10-20) Glucose (70-99(Fasting)) mg/dl Lactate 1.3 (0.4-2.0) mmol/L Calcium (8.6-10.3) mg/dl Total Bilirubin (0.2-1.0) mg/dl AST (13-39) U/L ALT (7-52) U/L Alkaline Phosphatase (34-104) U/L Total Protein (6.0-8.3) gm/dl Albumin (3.4-5.0) gm/dl Globulin (2.5-4.0) gm/dl Albumin/Globulin Ratio (0.9-2) SARS-CoV-2, RNA, NAAT NEGATIVE (NEGATIVE) Blood Type O Negative Antibody Screen NEGATIVE Administered Medications Heparin Sodium/Dextrose (Heparin Sodium/Dextrose) 25,000 units in 500 mls @ 26 mls/hr IV .[id number] [facility]; Protocol Stop: 10/14/22 15:59 Last Admin: 09/14/22 17:52 Dose: 1,300 units/hr, 26 mls/hr Documented By: AB Co-signed By: QGV Discontinued Medications Heparin Sodium (Porcine) (Heparin Sod (Porcine) 1000 Unit/Ml) 6,000 units IV NOW ONE Stop: 09/14/22 17:31 Last Admin: 09/14/22 17:52 Dose: 6,000 units Documented By: AB Co-signed By: QGV Discharge Plan Visit Data Chief Complaint: Abnormal Labs/Diagnostic Testing Stated Complaint: ULTRASOUND RESULTS ED Provider: Sampson Smith Discharge Problem: Arterial occlusion, DVT (deep venous thrombosis), Acute leg pain, Ischemic leg Patient Disposition: Admitted As Inpatient Discharge Instructions Interventions: ED Discharge Assessment Last Done: 09/14/22 19:19
[2022-09-14] MEDS ORDERED: HEPARIN SOD (PORCINE) 1000 UNIT/ML IV ONE ×2 (15:54→17:30)
[2022-09-14 16:55] LABS: Basophils # (auto) 0.03 K/uL (0-0.2); Basophils % (auto) 0.4 %; Eosinophils # (auto) 0.17 K/uL (0-0.50); Eosinophils % (auto) 2.4 %; Hematocrit (blood only) 44.1 % (42.0-52.0); Hemoglobin 15.6 g/dl (14.0-18.0); Immature Granulocytes # (auto) 0.03 K/uL (0.01-0.20); Immature Granulocytes % (auto) 0.4 %; Lymphocytes # (auto) 2.01 K/uL (1.2-3.4); Lymphocytes % (auto) 28.4 %; Mean Corpuscular Hemoglobin 33.5 pg (25.0-34.0); Mean Corpuscular Hgb Conc 35.4 g/dL (32.0-36.0); Mean Corpuscular Volume 94.8 fL (80.0-100.0); Mean Platelet Volume 10.1 fL (9.4-12.4); Monocytes % (auto) 9.9 %; Neutrophils # (auto) 4.14 K/uL (1.40-6.50); Neutrophils % (auto) 58.5 %; Platelet Count 158 K/uL (130-400); RDW Coefficient of Variation 13.7 % (11.5-14.5); RDW Standard Deviation 47.8 fL (36.4-46.3); Red Blood Count 4.65 M/uL (4.70-6.10); White Blood Count 7.08 K/ul (4.8-10.8)
[2022-09-14 16:59] LABS: Albumin Globulin Ratio 1.3 (0.9-2); Albumin Level 4.2 gm/dl (3.4-5.0); BUN Creatinine Ratio 12.7 (10-20); Bilirubin,Total 1.3 mg/dl (0.2-1.0); Calcium 9.5 mg/dl (8.6-10.3); Creatinine Clr Calc Pharmacy 63.9 ml/min; Est GFR (African American) 82.4 ml/min; Est GFR (Non-African American) 71.1 ml/min; Globulin 3.2 gm/dl (2.5-4.0); Potassium 3.7 mmol/L (3.5-5.1); Total Protein 7.4 gm/dl (6.0-8.3)
[2022-09-14 17:08] LABS: Partial Thromboplastin Time 29.3 Seconds (21.0-31.0); Prothrombin Time 10.9 Seconds (9.0-12.0)
--- NOTE | 2022-09-14 17:33 | History & Physical Report ---
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: Plan: Suspect acute on chronic with collaterals noted but acute symptoms in his foot IV heparin standard bolus and drip TTE to assess for thrombus NPO after midnight Consult vascular surgery (2) Deep vein thrombosis of left lower extremity: Plan: Very minor trauma possible precipitating IV heparin US venous doppler to assess futher DVT in this leg (3) Aneurysm of left popliteal artery: (4) Hypertension: Plan: Continue losartan and metoprolol (5) Hyperlipidemia: Plan: Continue atorvastatin Plan VTE Prophylaxis - IV heparin Diet - heart healthy, NPO after midnight Disposition - admit to PCU Admission and Anticipated Discharge Date Admission Date: September 14, 2022 History of Present Illness Chief Complaint: Abnormal outpatient ultrasound arterial doppler Primary Care Provider: Martell Cantu Bulmaro Gutierrez is a 77 year old male who presents to the ER following an abnormal outpatient arterial US doppler. He reports symptoms started on Monday night after coming home from a alliance party he tripped and fell backwards on a step and felt his left calf was sprained following this with aching all night. The next day (3 days ago) he woke up and his left foot was numb and cold. This did not improve therefore he went to see his PCP yesterday who organized and left lower ex tremity US arterial doppler which he had today. This showed significant arterial thrombus disease in his left lower extremity with collateral vessels and also a deep vein thrombosis therefore he was sent straight to the ER for evaluation. Case was discussed between the ER physician and vascular surgery who recommended admission under medicine and to start on intravenous heparin overnight for inter vention tomorrow. The patient denies any history of atrial fibrillation, blood clots or stroke. He reports being told during a stress test he may have had a heart attack in the past but no coronary artery disease confirmed on catheterization. He denies any current shortness of breath or chest pain. No recent surgeries. No claudication. Most recent long haul travel to [place] in July by car although this was broken up to 5-6 hour segments. Allergies Allergy/AdvReac Type Severity Reaction Status Date / Time indomethacin AdvReac Unknown 40 YR AGO, Verified 11/25/21 15:09 anxiety Home Medications Medication Instructions Recorded Confirmed Type atorvastatin 20 mg tablet 20 mg PO QPM 04/18/21 09/14/22 History multivitamin 1 tab PO QAM 04/18/21 09/14/22 History trazodone 50 mg tablet 50 mg PO HS 04/18/21 09/14/22 History losartan 50 mg tablet 50 mg PO QAM 07/12/21 09/14/22 History pantoprazole 40 mg tablet,delayed 40 mg PO DAILY #90 tabs 02/24/22 09/14/22 Rx release allopurinol 100 mg tablet 200 mg PO DAILY 09/14/22 09/14/22 History metoprolol succinate 25 mg 50 mg PO QAM 09/14/22 09/14/22 History tablet,extended release 24 hr Past Med/Surg History Medical History (Updated 09/14/22 @ 19:56 by Paul Baird MD) History of myocardial infarction DISCUSSED INCIDENTAL FINDING/NO HX INTERVENTION History of prostate cancer 2005/SX INTERVENTION History of rectal bleeding COLONOSCOPY FOR MAR 2021 - NO FINDINGS RE-OCCURENCE RECTAL BLEEDING AUGUST 2021 - REASON FOR UPCOMING EGD Hyperlipidemia Hypertension Surgical History History of cataract surgery BILAT History of colonoscopy History of hernia surgery History of prostatectomy History of shoulder surgery RX1, LX1 METAL CAP PLACED TO REPLACE JOINT ON BOTH SHOULDERS Family History Brother Family history of colon cancer Other Cancer No family history of adverse response to anesthesia No family history of bleeding disorder Stroke Social History Smoking Status: Never smoker Second Hand Exposure: No; Do You Dip or Chew Tobacco: No; Tobacco Cessation Education Requested by Patient: No Hx Alcohol Use: Yes Alcohol type: beer Hx Substance Use: No Preferred Language: Belarusian Communication Ability: Effective Manager User Interface Required: No Beliefs That Will Affect Care: None Current Living Situation: Alone Other Information That Helps Us Care for You: No Feels Safe at Home: Yes Safety Concerns: Feels Safe At This Time Assistive Devices: Glasses Review of Systems Review of Systems: All systems reviewed & are unremarkable except as noted in HPI & below Physical Exam Constitutional: WD/WN, vitals as above Eyes: PERRL, conjunctivae normal, anicteric sclerae ENMT: external ear and nose normal, oropharynx normal Neck: trachea midline, no thyromegaly Respiratory: normal respiratory effort, lungs clear to auscultation Cardiovascular: RRR, no murmur, no edema Vessels: posterior tibial pulses present (b/l but reduced on left); + dorsalis pedis pulses abnormal (absent on left side) Extremities: + calf tenderness (left); + abnormal capillary refill (8 seconds left 1st toe, 4 seconds on right) and no pedal edema Gastrointestinal (Abdomen): normal bowel sounds, soft, nontender, no hepatosplenomegaly Musculoskeletal: no cyanosis or clubbing, extremities motor strength 5/5 Skin: no rashes, warm and dry Neurologic: moves all extremities and awake; not confused Psychiatric: A+Ox3, euthymic affect Results & Data Results & Data Vital Signs (Past 12 Hours) Vital Signs Temp Pulse Resp BP Pulse Ox O2 Del Method 09/14/22 15:08 36.6 C 82 20 205/115 H 99 Room Air Laboratory Results Abnormal lab results 09/14/22 09/14/22 09/15/22 Range/Units 16:26 16:26 00:14 RBC 4.65 L (4.70-6.10) M/uL RDW Std Deviation 47.8 H (36.4-46.3) fL [place] # (Auto) 0.70 H (0.11-0.59) K/uL APTT 68.9 H* (21.0-31.0) Seconds Chloride 109 H (98-107) mmol/L Total Bilirubin 1.3 H (0.2-1.0) mg/dl Diagnostic Findings ULTRASOUND LEFT LOWER EXTREMITY ARTERIAL CLINICAL HISTORY: Left leg pain. COMPARISON STUDY: No priors. TECHNIQUE: Real-time, grayscale and color Doppler sonography of the arteries of the left lower extremities performed from the inguinal crease to the foot. FINDINGS: There is atherosclerotic plaque and irregularity throughout the arteries of the left lower extremity. There are triphasic arterial waveforms in the common femoral artery with velocities measuring up to 63 cm/s. There are biphasic to triphasic waveforms throughout the proximal and mid portions of the superficial femoral artery with velocities measuring up to 82 cm/s. There is an approximately 3 cm aneurysm of the popliteal artery. There is thrombosis of the distal superficial femoral artery and the popliteal artery. Collateral vessels are seen in this region. The left posterior tibial artery is patent with velocities measuring up to 73 cm/s. There is blunted arterial upstroke, and flow within the posterior tibial artery may be reversed. There is monophasic flow i dentified in the peroneal artery. The midportion appears occluded. The anterior tibial artery is patent with blunted arterial upstrokes and velocities measuring up to 15 cm/s. The dorsalis pedis artery appears occluded. There is occlusive deep venous thrombosis identified in the left calf within the peroneal veins. IMPRESSION: 1. There is occlusive deep venous thrombosis in the left calf within the peroneal veins. 2. There is a 3 cm aneurysm of the popliteal artery. 3. There is complete thrombosis of the distal superficial femoral artery and the popliteal artery with collateral vessels and reconstitution in the upper calf. 4. There is segmental thrombosis within the left peroneal artery. 5. No flow was shown in the dorsalis pedis artery and this is likely occluded. 6. There is likely reversal of flow within the posterior tibial artery. Medications Administered ER Medications Given: Heparin IV standard bolus and drip ECG Rate (beats per minute): 67 Rhythm: normal sinus Findings: + other (anterior infarct, age undetermined) Comparison ECG Date: from (September 23, 2021) Change: the following changes noted (Anterior infarct is now present) Code Status & VTE Plan Code Status Full VTE Prophylaxis Plan VTE Prophylaxis will be ordered: Yes PG Care Time/CCT Total # of Minutes Spent Total Time Spent with Patient: Total time spent is greater than 50% in coordination of care (as documented) at patient's floor/unit and/or counseling patient: Coding Level of Care Code 70864 INT INP/OBS CARE 2/55MIN Diagnoses 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
[2022-09-14] MEDS: HEPARIN SODIUM/DEXTROSE 25,000 UNITS/500 ML BAG IV SCH (17:52)
[2022-09-14] MEDS ORDERED: ACETAMINOPHEN 325 MG TAB PO PRN (19:53)
[2022-09-14] MEDS: ATORVASTATIN 20 MG TAB PO SCH (21:54)
[2022-09-14] MEDS: traZODone HCL 50 MG TAB PO SCH (21:54)
--- NOTE | 2022-09-14 22:57 | Ultrasound Report ---
ULTRASOUND LEFT LOWER EXTREMITY VENOUS CLINICAL HISTORY: Left lower extremity deep venous thrombosis. COMPARISON STUDY: Left lower extremity arterial ultrasound performed the same date 09/14/2022. TECHNIQUE: Real-time, grayscale, and color Doppler sonography of the deep veins of the left lower ext remity was performed from the inguinal crease to the calf. Compression and augmentation were utilized . FINDINGS: The common femoral, superficial femoral, and popliteal veins are patent and normally compre ssible. The greater saphenous vein and the profunda femoris vein at the junction with the common femo ral vein are clear. Occlusive deep venous thrombosis is seen in the calf within the peroneal veins. T he remaining calf vessels appear patent. IMPRESSION: 1. Deep venous thrombosis is seen in the calf within the peroneal veins. 2. The remaining deep veins of the left lower extremity are patent. ACT 112: Negative or not required by law. Electronically signed by: Alireza Claudio M.D. 09/14/2022 10:55 PM
[2022-09-14] MEDS: METOPROLOL SUCC 25MG EXT REL TAB PO SCH (23:42)
[2022-09-15] MEDS ORDERED: ceFAZolin 2000MG 2,000 MG/15 ML SYR IV SCH (00:05)
[2022-09-15 01:38] LABS: Partial Thromboplastin Ratio 2.4
[2022-09-15 01:58] LABS: Partial Thromboplastin Time 68.9 Seconds (21.0-31.0)
[2022-09-15] MEDS ORDERED: SODIUM CHLORIDE 0.9% 1000ML 1,000 ML IV SCH ×2 (05:00→10:49)
--- NOTE | 2022-09-15 08:26 | Consultation ---
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 I have discussed the risks options and benefits of the procedure with the pat ient. The patient understands the risks options and benefits and agrees to the procedure. (2) Aneurysm of left popliteal artery: If possible we will fix the popliteal artery aneurysm also at this time. This will be all done this morning. Thank you very much for letting us participate in the care of this patient. History of Present Illness Reason for Consultation: Left Popliteal artery aneurysm Attending Physician: Jabari Cota MD History of Present Illness This is a 77-year-old gentleman who on Monday developed numbness and a sharp pain in his left calf. The pain resolved but he still has residual numbness in his left foot. Ultrasound showed a popliteal artery aneurysm which was 3 cm in size and a thrombosed left superficial femoral artery. Poor outflow was seen. He had no previous history of claudication or rest pain. Allergies Allergy/AdvReac Type Severity Reaction Status Date / Time indomethacin AdvReac Unknown 40 YR AGO, Verified 11/25/21 15:09 anxiety Home Medications Medication Instructions Recorded Confirmed Type atorvastatin 20 mg tablet 20 mg PO QPM 04/18/21 09/14/22 History multivitamin 1 tab PO QAM 04/18/21 09/14/22 History trazodone 50 mg tablet 50 mg PO HS 04/18/21 09/14/22 History losartan 50 mg tablet 50 mg PO QAM 07/12/21 09/14/22 History pantoprazole 40 mg tablet,delayed 40 mg PO DAILY #90 tabs 02/24/22 09/14/22 Rx release allopurinol 100 mg tablet 200 mg PO DAILY 09/14/22 09/14/22 History metoprolol succinate 25 mg 50 mg PO QAM 09/14/22 09/14/22 History tablet,extended release 24 hr Patient History Medical History History of myocardial infarction DISCUSSED INCIDENTAL FINDING/NO HX INTERVENTION History of prostate cancer 2005/SX INTERVENTION History of rectal bleeding COLONOSCOPY FOR MAR 2021 - NO FINDINGS RE-OCCURENCE RECTAL BLEEDING AUGUST 2021 - REASON FOR UPCOMING EGD Hyperlipidemia Hypertension Surgical History History of cataract surgery BILAT History of colonoscopy History of hernia surgery History of prostatectomy History of shoulder surgery RX1, LX1 METAL CAP PLACED TO REPLACE JOINT ON BOTH SHOULDERS Family History Brother Family history of colon cancer Other Cancer No family history of adverse response to anesthesia No family history of bleeding disorder Stroke Social History Smoking Status: Never smoker Second Hand Exposure: No; Do You Dip or Chew Tobacco: No; Tobacco Cessation Education Requested by Patient: No Hx Alcohol Use: Yes Alcohol type: beer Hx Substance Use: No Preferred Language: Chadian Communication Ability: Effective Belt Builder Helper Required: No Beliefs That Will Affect Care: None Current Living Situation: Alone Other Information That Helps Us Care for You: No Feels Safe at Home: Yes Safety Concerns: Feels Safe At This Time Assistive Devices: Glasses Review of Systems Review of Systems: All systems reviewed & are unremarkable except as noted in HPI & below Physical Exam Constitutional: WD/WN, vitals as above Respiratory: normal respiratory effort, lungs clear to auscultation Cardiovascular: RRR, no murmur, no edema Vessels: femoral pulses present, posterior tibial pulses present (Not palpable on the left) and dorsalis pedis pulses present (Not palpable on the left) Extremities: normal capillary r efill (Decreased on the left) Gastrointestinal (Abdomen): normal bowel sounds, soft, nontender, no hepatosplenomegaly Musculoskeletal: no cyanosis or clubbing, extremities motor strength 5/5 Skin: There is dependent rubor of the left foot Neurologic: CN's II-XI intact bilaterally and moves all extremities Psychiatric: Orientation: alert and oriented x 3 Results & Data Vital Signs (Past 12 Hours) Vital Signs Temp Pulse Pulse Resp BP BP Pulse Ox 09/15/22 07:38 68 09/15/22 05:10 36.8 C 68 18 127/84 09/15/22 01:42 68 18 148/92 H 95 09/14/22 22:14 72 09/14/22 20:30 67 171/105 H O2 Del Method 09/15/22 07:38 09/15/22 05:10 Room Air 09/15/22 01:42 Room Air 09/14/22 22:14 09/14/22 20:30
[2022-09-15 08:44] LABS: Basophils # (auto) 0.05 K/uL (0-0.2); Basophils % (auto) 0.6 %; Eosinophils # (auto) 0.24 K/uL (0-0.50); Eosinophils % (auto) 2.8 %; Hematocrit (blood only) 45.8 % (42.0-52.0); Hemoglobin 16.4 g/dl (14.0-18.0); Immature Granulocytes # (auto) 0.04 K/uL (0.01-0.20); Immature Granulocytes % (auto) 0.5 %; Lymphocytes # (auto) 2.65 K/uL (1.2-3.4); Lymphocytes % (auto) 31.3 %; Mean Corpuscular Hemoglobin 33.7 pg (25.0-34.0); Mean Corpuscular Hgb Conc 35.8 g/dL (32.0-36.0); Mean Corpuscular Volume 94.2 fL (80.0-100.0); Mean Platelet Volume 10.2 fL (9.4-12.4); Monocytes # (auto) 0.82 K/uL (0.11-0.59); Monocytes % (auto) 9.7 %; Neutrophils # (auto) 4.66 K/uL (1.40-6.50); Neutrophils % (auto) 55.1 %; Platelet Count 156 K/uL (130-400); RDW Coefficient of Variation 13.8 % (11.5-14.5); RDW Standard Deviation 47.4 fL (36.4-46.3); Red Blood Count 4.86 M/uL (4.70-6.10); White Blood Count 8.46 K/ul (4.8-10.8)
[2022-09-15] MEDS ORDERED: LIDOCAINE 1% LOCAL 20 ML VIAL ONE (08:55)
[2022-09-15 08:57] LABS: BUN Creatinine Ratio 12.4 (10-20); Calcium 9.3 mg/dl (8.6-10.3); Est GFR (African American) 79.5 ml/min; Est GFR (Non-African American) 68.6 ml/min; Potassium 3.9 mmol/L (3.5-5.1)
[2022-09-15] MEDS ORDERED: METOPROLOL SUCC 50MG EXT REL TAB PO SCH (09:00)
[2022-09-15] MEDS: METOPROLOL SUCC 25MG EXT REL TAB PO SCH ×2 (09:04→20:28)
[2022-09-15] MEDS: PANTOprazole 40 MG TAB PO SCH (09:05)
[2022-09-15] MEDS ORDERED: MIDAZOLAM HCL 1 MG/ML 2ML VIAL ONE ×2 (09:13→10:11)
[2022-09-15] MEDS ORDERED: fentaNYL citrate PF 100 MCG/2 ML VIAL ONE (09:13)
[2022-09-15 09:26] LABS: Partial Thromboplastin Time 56.4 Seconds (21.0-31.0)
--- NOTE | 2022-09-15 09:33 | Pre Anesthesia Assessment ---
Date of Service September 15, 2022 Pre Sedation Assessment Vital Signs Temp Pulse Pulse Pulse Resp BP BP 09/15/22 08:00 09/15/22 09:18 37 C 75 20 171/110 H 09/15/22 08:26 149/98 H 09/15/22 07:38 68 09/15/22 05:10 36.8 C 68 18 127/84 09/15/22 01:42 68 18 148/92 H 09/14/22 22:14 72 09/14/22 20:03 72 09/14/22 20:30 67 09/14/22 20:06 36.6 C 75 15 09/14/22 19:19 09/14/22 17:50 61 18 09/14/22 15:08 36.6 C 82 20 205/115 H BP Pulse Ox O2 Del Method 09/15/22 08:00 Room Air 09/15/22 09:18 98 Room Air 09/15/22 08:26 09/15/22 07:38 09/15/22 05:10 Room Air 09/15/22 01:42 95 Room Air 09/14/22 22:14 09/14/22 20:03 09/14/22 20:30 171/105 H 09/14/22 20:06 206/122 H 98 Room Air 09/14/22 19:19 Room Air 09/14/22 17:50 181/107 H 98 09/14/22 15:08 99 Room Air Cardiovascular RRR, no murmur, no edema Respiratory normal respiratory effort, lungs clear to auscultation Pre-Sedation Airway Assessment Smoking Status: Never smoker Hx Sleep Apnea: No Short, Thick Neck: No Thyromental Distance: > or= 3.5 Finger Breadths Oral Cavity: + WNL Mallampati Class: II ASA: ASA3 NPO Status Date of Last Intake of Fluids: 09/14/22 Time of Last Intake of Fluids: 22:00 Date of Last Intake of Solid Food: 09/14/22 Time of Last Intake of Solid Foods: 20:00 Procedure Planning Contraindications for Sedation: none Current Medications Reviewed: Yes Notes The planned sedation has been discussed with the patient. Informed Consent was obtained. I have identified the patient, determined the appropriateness of sedation and have assessed the patient immediately prior to the procedure. All medicine(s) and interventions are by my order.
[2022-09-15] MEDS ORDERED: HEPARIN SOD (PORCINE) 1000 UNIT/ML ONE (09:48)
--- NOTE | 2022-09-15 10:04 | XCELERA ---
[id number]
--- NOTE | 2022-09-15 10:16 | Electrocardiogram Report ---
Test Reason : Blood Pressure : / mmHG Vent. Rate : 067 BPM Atrial Rate : 067 BPM P-R Int : 150 ms QRS Dur : 090 ms QT Int : 410 ms P-R-T Axes : 058 053 049 degrees QTc Int : 433 ms Normal sinus rhythm Poor R wave progression, consider anterior AK vs. lead placement vs. LVH Abnormal ECG When compared with ECG of 23-SEP-2021 20:42, Anterior infarct is now Present Minimal criteria for Inferior infarct are no longer Present Confirmed by Esau Contreras ([id number]) on 09/15/2022 10:16:03 AM Referred By: Martell Cantu Confirmed By:Wagner Contreras
[2022-09-15] MEDS ORDERED: VISIPAQUE IV PRN (10:35)
--- NOTE | 2022-09-15 10:38 | Post Anesthesia Assessment ---
Date of Service September 15, 2022 Post Sedation Assessment Vital Signs Temp Pulse Pulse Pulse Resp BP BP 09/15/22 10:35 66 16 133/85 09/15/22 10:30 66 16 126/91 09/15/22 10:25 73 16 132/97 09/15/22 10:20 69 16 127/91 09/15/22 10:15 63 16 119/88 09/15/22 10:10 67 16 140/94 09/15/22 10:05 63 16 127/89 09/15/22 10:00 66 16 128/87 09/15/22 09:55 68 16 117/88 09/15/22 09:50 70 16 180/88 H 09/15/22 09:45 73 16 182/98 H 09/15/22 08:00 09/15/22 09:18 37 C 75 20 171/110 H 09/15/22 08:26 149/98 H 09/15/22 07:38 68 09/15/22 05:10 36.8 C 68 18 127/84 09/15/22 01:42 68 18 148/92 H 09/14/22 22:14 72 09/14/22 20:03 72 09/14/22 20:30 67 09/14/22 20:06 36.6 C 75 15 09/14/22 19:19 09/14/22 17:50 61 18 09/14/22 15:08 36.6 C 82 20 205/115 H BP Pulse Ox O2 Del Method O2 Flow Rate 09/15/22 10:35 99 Oxymask 4 09/15/22 10:30 99 Oxymask 4 09/15/22 10:25 99 Oxymask 4 09/15/22 10:20 99 Oxymask 4 09/15/22 10:15 99 Oxymask 4 09/15/22 10:10 99 Oxymask 4 09/15/22 10:05 98 Oxymask 4 09/15/22 10:00 98 Oxymask 4 09/15/22 09:55 98 Oxymask 4 09/15/22 09:50 98 Oxymask 4 09/15/22 09:45 99 Oxymask 4 09/15/22 08:00 Room Air 09/15/22 09:18 98 Room Air 09/15/22 08:26 09/15/22 07:38 09/15/22 05:10 Room Air 09/15/22 01:42 95 Room Air 09/14/22 22:14 09/14/22 20:03 09/14/22 20:30 171/105 H 09/14/22 20:06 206/122 H 98 Room Air 09/14/22 19:19 Room Air 09/14/22 17:50 181/107 H 98 09/14/22 15:08 99 Room Air Recovery Score Activity: Moves 4 extremities Respiration: Deep Breath/Cough Circulation: +/-20% PreAnes Value Consciousness: Fully Awake Oxygen Saturation: > 92% On Room Air Post Anesthesia Score: 10 Discharge Sedation Level of Care: Fast Track Phase II Post Sedation Plan On clinical assessment, the patient appears to have tolerated the sedation without complications. Patient is recovering as anticipated. Patient will continue to be monitored by nursing and may be discharged when sedation discharge criteria are met per below protocol. Upon Completions of procedure up to 15 minutes continue every 5 minute vital signs and the P.A.R. score; then discharge to a Phase I or Fast Track to Phase II per the following guidelines: * Discharge Patient to appropriate Phase II area if PAR is 8 or greater or retur n to pre- procedure baseline. The post - procedure orders will be as directed. * If PAR score is less than 8 or not return to pre-procedure baseline then patient will follow Phase I monitoring till PAR is reached for Phase II. The Phase I may be done in procedure room or may call to secure a Phase I area. * If naloxone or flumazenil are used for reversal, hold in Phase I for continued monitoring from when last reversal dose was given for a minimum of 60 minutes or longer pending the nurse and/or physician discretion of patient condition before discharge to Phase II. Please call the Sedation Physician to re-evaluate and complete post-note for discharge to Phase II area. Do NOT discharge from procedure sedation or Phase 1 until post- sedation evaluation note is complete by procedure /sedation MD Sedation Discharge Instructions to be given to the patient at discharge to home.
--- NOTE | 2022-09-15 10:43 | Procedure Note ---
Angiogram Post Procedure Fluoroscopy Time (minutes): 17 Conscious Sedation Time (minutes): 50 Radiation (mGy): 244 Contrast: 30 Post Operative Report Pre & Post Diagnosis Operation Date: 09/15/22 12:45 Pre-Op Diagnosis: Arterial Occlusion Post-Op Diagnosis: Arterial Occlusion I identified the patient and participated in the time-out.: Yes Procedure Operation Date: 09/15/22 12:45 Actual Procedures p Left Lower Extremity Arteriogram, Ultrasound Localization of Right Femoral Artery, Mechaical Closure of Right Femoral Artery, Moderate Sedation 1342- 8087(Right) - Taurus Chow MD Surgeon Taurus Chow MD Physical Anthropologist none Estimated Blood Loss 20 Findings Consistent with Post-Op Diagnosis Specimens none Anesthesia Type RN Sedation Complications none Disposition Accompanied Patient To Recovery: No Disposition: Recovery Room Indications This is a 77-year-old gentleman who developed sudden onset of left leg discomfort in the calf and foot numbness. This progressed over the weekend. He was seen in the ED and found to have a popliteal artery aneurysm with thrombosis proximal distally to the aneurysm. Arteriography possible intervention was recommended. I have discussed the risks options and benefits of the procedure with the patient. The patient understands the risks options and benefits and agrees to the procedure. Description of Procedure The patient was taken the angiogram suite and placed in the supine position. Both groins were then prepped and draped in a sterile manner. A timeout was performed and the patient was identified. Local anesthetic was administered to the right groin. Percutaneous puncture was made of the right common femoral artery. 035 wire was inserted followed by a 5 Iranian sheath. We then inserted an 035 Glidewire and rim catheter. The left side cannot be cannulated from the right. We then did a hand-injection through the rim catheter which showed a significant angle to the aortic bifurcation and tortuosity of the common iliacs. We switched from a rim catheter to a Clarke 2. With this we were able to cannulate the left iliac from the right side and advanced and Clarke 2 catheter down to the distal common iliac. This would not pass any further so we decided to do an arteriogram at that level. This showed that the common iliac distally the external iliac common femoral profundofemoral and superficial femoral arteries were patent. There were enlarged but not aneurysmal. There was abrupt cut off of the superficial femoral artery at the adductor hiatus. There is total occlusion down to the posterior tibial artery origin which was patent down through the foot. The peroneal cannot be visualized. The anterior tibial appeared to have some clot present in the proximal portion then could be faintly seen down through the leg. That point the appearance of the clot and the involvement made this case not a good 1 for an endovascular approach. We therefore remove the catheter. We closed the right groin puncture site with a Star closure device without difficulty. We will plan on surgically repairing the popliteal artery aneurysm tomorrow after venous mapping is done. Sterile dressings were applied to the puncture site.The patient left the operation room in satisfactory condition and tolerated the procedure well. All needle and sponge counts were correct at the end of the procedure. I attest to the content of the Intraoperative Record and any orders documented therein. Any exceptions are noted below.
[2022-09-15] MEDS: allopurinoL 100 MG TAB PO SCH (11:29)
[2022-09-15] MEDS: LOSARTAN POTASSIUM 50 MG TAB PO SCH (11:29)
[2022-09-15] MEDS: MULTIVITAMIN TAB PO SCH (11:30)
[2022-09-15] MEDS: HEPARIN SODIUM/DEXTROSE 25,000 UNITS/500 ML BAG IV SCH (13:42)
--- NOTE | 2022-09-15 13:59 | Ultrasound Report ---
US venous mapping bilateral lower extremity CLINICAL HISTORY: pre op for left fem pop bypass. Venous mapping. COMPARISON STUDY: Left leg venous Doppler 09/14/2022. FINDINGS: The right greater saphenous vein measures a diameter between 6.1 and 2.0 mm and appears pat ent. The left greater saphenous vein measures a diameter between 7.8 and 1.9 mm and appears patent. T he right lesser saphenous vein measures between 4.5 and 1.2 mm and appears patent. The left lesser sa phenous vein measures between 3.6 and 1.6 mm and appears patent. Please refer to the provided notes o n the study for detailed analysis of the veins. IMPRESSION: The bilateral greater and lesser saphenous veins appear patent and are normal in caliber . ACT 112: Negative or not required by law. Electronically signed by: Josesito Navarrete M.D. 09/15/2022 1:57 PM
--- NOTE | 2022-09-15 14:39 | Communication Note ---
Date of Service: September 15, 2022 This patient has a long occlusion from the adductor hiatus down to just below the knee and the tibial peroneal trunk. It appears to be fairly fresh thrombus with an occluded popliteal artery aneurysm. The amount of thrombus precludes endovascular intervention without causing distal embolization and worsening of his outflow. we therefore recommended a left femoral to tibioperoneal trunk bypass. This will be done tomorrow. I discussed this with the patient and his daughter. They are in agreement to go ahead with the bypass procedure.
--- NOTE | 2022-09-15 16:28 | Hospitalist Progress Note ---
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 He currently is on a heparin drip. Left femoropopliteal bypass scheduled for tomorrow, September 16 (2) Deep vein thrombosis of left lower extremity: Plan: Probably due to poor circulation. He is currently on a heparin drip. (3) Aneurysm of left popliteal artery: Plan: Vascular surgery aware (4) Hypertension: Plan: Continue losartan and metoprolol (5) Hyperlipidemia: Plan: Continue atorvastatin Plan To be determined. Hopefully he will be able to be discharged home postoperatively Admission and Anticipated Discharge Date Admission Date: September 14, 2022 Subjective Alert and oriented. No acute distress. He understands he will be undergoing left fempop bypass tomorrow, September 16 Review of Systems Review of Systems: Constitutional-no fever or chills ENT-no blurred vision, no double vision, no epistaxis, no sore throat Respiratory-no cough, no wheezing, no shortness of breath Cardiac-no palpitations, no chest pain, no syncope GI-no nausea, vomiting, diarrhea, melena, hematochezia -no urinary retention, no urinary incontinence, no dysuria, no hematuria Musculoskeletal-mild discomfort at right femoral angiography site. Hemostasis has been achieved. He denies left foot pain Skin-no bruising, no rashes, no pruritus Neuro-no isolated weakness, no paresthesia, no weakness Psych-no depression, no anxiety Physical Exam Physical Exam: General-alert and oriented x3, no fevers, no chills HEENT-head atraumatic and normocephalic, TMs intact bilaterally, pupils equal and reactive to light, extraocular muscles intact Neck-no lymphadenopathy or thyromegaly, trachea midline Chest-clear to auscultation percussion. No rales wheezing or rhonchi Cardiac-regular rate and rhythm, normal S1 and S2 Abdomen-normal bowel sounds, nontender, no hepatosplenomegaly Extremities-nonpalpable distal pulses left lower extremity but no overt cyanosis. Neuro-cranial nerves II through XII intact, motor and sensory function within normal limits, strength symmetrical , no focal deficits Psych-normal affect, normal mood Results & Data Results & Data Vital Signs (Past 12 Hours) Vital Signs Temp Pulse Pulse Pulse Pulse Resp BP 09/15/22 15:51 36.9 C 67 18 09/15/22 15:31 72 09/15/22 15:09 36.7 C 70 19 126/84 09/15/22 11:54 36.8 C 68 68 17 147/94 H 09/15/22 11:05 36.7 C 67 18 131/87 09/15/22 11:39 36.7 C 68 18 148/74 H 09/15/22 11:11 69 09/15/22 10:49 36.8 C 62 18 133/82 09/15/22 10:38 68 16 130/80 09/15/22 10:35 66 16 133/85 09/15/22 10:30 66 16 126/91 09/15/22 10:25 73 16 132/97 09/15/22 10:20 69 16 127/91 09/15/22 10:15 63 16 119/88 09/15/22 10:10 67 16 140/94 09/15/22 10:05 63 16 127/89 09/15/22 10:00 66 16 128/87 09/15/22 09:55 68 16 117/88 09/15/22 09:50 70 16 180/88 H 09/15/22 09:45 73 16 182/98 H 09/15/22 08:00 09/15/22 09:18 37 C 75 20 171/110 H 09/15/22 08:26 149/98 H 09/15/22 07:38 68 09/15/22 05:10 36.8 C 68 18 127/84 BP Pulse Ox O2 Del Method O2 Flow Rate 09/15/22 15:51 123/83 96 Room Air 09/15/22 15:31 09/15/22 15:09 94 Room Air 09/15/22 11:54 96 Room Air 09/15/22 11:05 95 Room Air 09/15/22 11:39 96 Room Air 09/15/22 11:11 09/15/22 10:49 95 Room Air 09/15/22 10:38 99 Oxymask 4 09/15/22 10:35 99 Oxymask 4 09/15/22 10:30 99 Oxymask 4 09/15/22 10:25 99 Oxymask 4 09/15/22 10:20 99 Oxymask 4 09/15/22 10:15 99 Oxymask 4 09/15/22 10:10 99 Oxymask 4 09/15/22 10:05 98 Oxymask 4 09/15/22 10:00 98 Oxymask 4 09/15/22 09:55 98 Oxymask 4 09/15/22 09:50 98 Oxymask 4 09/15/22 09:45 99 Oxymask 4 09/15/22 08:00 Room Air 09/15/22 09:18 98 Room Air 09/15/22 08:26 09/15/22 07:38 09/15/22 05:10 Room Air Laboratory Results 09/15/22 08:12 09/15/22 08:12 PG Care Time/CCT Total # of Minutes Spent Total Time Spent with Patient: Total time spent is greater than 50% in coordination of care (as documented) at patient's floor/unit and/or counseling patient: Coding Level of Care Code 31243 SUB INP/OBS CARE 3/50MIN Diagnoses 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
[2022-09-15] MEDS: traZODone HCL 50 MG TAB PO SCH (20:28)
[2022-09-15] MEDS: ATORVASTATIN 20 MG TAB PO SCH (20:28)
[2022-09-15 21:05] LABS: Partial Thromboplastin Ratio 1.6
[2022-09-15 21:33] LABS: Partial Thromboplastin Time 44.2 Seconds (21.0-31.0)
[2022-09-16] MEDS ORDERED: ceFAZolin 2000MG 2,000 MG/15 ML SYR IV ONE (06:00)
[2022-09-16 07:11] LABS: Partial Thromboplastin Time 55.8 Seconds (21.0-31.0)
--- NOTE | 2022-09-16 07:41 | History & Physical Bridge Note ---
Date of Service September 16, 2022 History & Physical Bridge Note Patient for a left fem pop bypass today. I have discussed the risks options and benefits of the procedure with the patient. The patient understands the risks options and benefits and agrees to the procedure. I have examined the patient, reviewed the History & Physical and in the interval since the performance of the History & Physical I have noted the following changes of clinical significance: no changes noted
[2022-09-16] MEDS ORDERED: MIDAZOLAM HCL 1 MG/ML 2ML VIAL ONE (07:46)
[2022-09-16] MEDS ORDERED: LIDOCAINE 2% 2 ML VIAL/AMP(20MG/ML) INFIL ONE ×3 (07:46→16:05)
[2022-09-16] MEDS ORDERED: DEXAMETHASONE SOD INJ 4 MG/ML VIAL ONE (07:46)
[2022-09-16] MEDS ORDERED: PROPOFOL IV EMULSION 10 MG/ML 20 ML VIAL IV ONE ×2 (07:46→15:15)
[2022-09-16] MEDS ORDERED: ONDANSETRON INJ 2 MG/ML 2 ML VIAL ONE (07:46)
[2022-09-16] MEDS ORDERED: fentaNYL citrate PF 100 MCG/2 ML VIAL ONE ×2 (07:47→14:52)
[2022-09-16] MEDS: HEPARIN SODIUM/DEXTROSE 25,000 UNITS/500 ML BAG IV SCH (08:27)
[2022-09-16] MEDS: MULTIVITAMIN TAB PO SCH (08:28)
[2022-09-16] MEDS: LOSARTAN POTASSIUM 50 MG TAB PO SCH (08:28)
[2022-09-16] MEDS: PANTOprazole 40 MG TAB PO SCH (08:28)
[2022-09-16] MEDS: allopurinoL 100 MG TAB PO SCH (08:29)
[2022-09-16] MEDS: METOPROLOL SUCC 25MG EXT REL TAB PO SCH ×2 (08:29→19:50)
[2022-09-16] MEDS ORDERED: SODIUM CHLORIDE 0.9% 1000ML 1,000 ML IV SCH (10:00)
[2022-09-16] MEDS ORDERED: ceFAZolin 2,000 MG/15 ML IV PUSH IV ONE (12:08)
--- NOTE | 2022-09-16 12:28 | Anesthesiology Consultation ---
Date of Service September 16, 2022 Assessment & Plan (1) Encounter for pre-operative examination: Chart Review Chart Review: Acceptable Risk for Surgery History Surgery Operation Date: 09/15/22 12:45 Proposed Procedures p Left Lower Extremity Angiogram with Intervention - Taurus Chow MD Operation Date: 09/16/22 12:40 Proposed Procedures p Femoral Posterior Tib Bypass Graft - Taurus Chow MD Height/Weight Height: 5 ft 7 in Weight: 86.5 kg Allergies Allergy/AdvReac Type Severity Reaction Status Date / Time indomethacin AdvReac Unknown 40 YR AGO, Verified 11/25/21 15:09 anxiety Medications Home Medications Medication Instructions Recorded Confirmed Last Taken atorvastatin 20 mg tablet 20 mg PO QPM 04/18/21 09/14/22 11/07/21 multivitamin 1 tab PO QAM 04/18/21 09/14/22 11/07/21 trazodone 50 mg tablet 50 mg PO HS 04/18/21 09/14/22 11/07/21 losartan 50 mg tablet 50 mg PO QAM 07/12/21 09/14/22 11/08/21 pantoprazole 40 mg tablet,delayed 40 mg PO DAILY #90 tabs 02/24/22 09/14/22 Unknown release allopurinol 100 mg tablet 200 mg PO DAILY 09/14/22 09/14/22 Unknown metoprolol succinate 25 mg 50 mg PO QAM 09/14/22 09/14/22 Unknown tablet,extended release 24 hr Active Medications Generic Name Dose Route Start Last Admin Trade Name Freq PRN Reason Stop Dose Admin Allopurinol 200 mg 09/15/22 09:00 09/16/22 08:29 Allopurinol 100 Mg Tab PO 10/15/22 08:59 200 mg DAILY VIC Administration Atorvastatin Calcium 20 mg 09/14/22 21:00 09/15/22 20:28 Atorvastatin 20 Mg Tab PO 10/14/22 20:59 20 mg QPM VIC Administration Heparin Sodium/Dextrose 25,000 units in 500 mls @ 25 mls/hr 09/14/22 16:00 09/16/22 08:27 Heparin Sodium/Dextrose IV 10/14/22 15:59 1,250 units/hr .Q20H VIC 25 mls/hr Administration Protocol 1,250 UNITS/HR Iodixanol 30 ml 09/15/22 10:35 09/15/22 10:36 Visipaque IV 09/19/22 10:34 30 ml UD PRN Administration Interaction Checking Losartan Potassium 50 mg 09/15/22 09:00 09/16/22 08:28 Losartan Potassium 50 Mg Tab PO 10/15/22 08:59 50 mg QAM VIC Administration Metoprolol Succinate 25 mg 09/14/22 23:15 09/16/22 08:29 Metoprolol Succ 25mg Ext Rel Tab PO 10/14/22 23:14 25 mg BID VIC Administration Multivitamins 1 tab 09/15/22 09:00 09/16/22 08:28 Multivitamin Tab PO 10/15/22 08:59 1 tab QAM VIC Administration Pantoprazole Sodium 40 mg 09/15/22 09:00 09/16/22 08:28 Pantoprazole 40 Mg Tab PO 10/15/22 08:59 40 mg DAILY VIC Administration Trazodone HCl 50 mg 09/14/22 21:00 09/15/22 20:28 Trazodone Hcl 50 Mg Tab PO 10/14/22 20:59 50 mg HS VIC Administration NPO Date Last Intake of Fluids: 09/15/22 Time Last Intake of Fluids: 23:00 Last Intake of Fluids Comment: sip of water 0830 w/meds Date Last Intake of Solids: 09/15/22 Time Last Intake of Solids: 18:00 Past Medical History Medical History History of myocardial infarction DISCUSSED INCIDENTAL FINDING/NO HX INTERVENTION History of prostate cancer 2005/SX INTERVENTION History of rectal bleeding COLONOSCOPY FOR MAR 2021 - NO FINDINGS RE-OCCURENCE RECTAL BLEEDING AUGUST 2021 - REASON FOR UPCOMING EGD Hyperlipidemia Hypertension Past Family History Family History Brother Family history of colon cancer Other Cancer No family history of adverse response to anesthesia No family history of bleeding disorder Stroke Past Surgical History Surgical History History of cataract surgery BILAT History of colonoscopy History of hernia surgery History of prostatectomy History of shoulder surgery RX1, LX1 METAL CAP PLACED TO REPLACE JOINT ON BOTH SHOULDERS Social History Smoking Status: Never smoker Do You Dip or Chew Tobacco: No Hx Alcohol Use: Yes Alcohol type: beer alcohol intake frequency: a few times a week Hx Substance Use: No substance use type: does not use Physical Exam Vital Signs Last Vital Signs Temp 36.7 C 09/16/22 12:05 Pulse 73 09/16/22 12:05 Resp 20 09/16/22 12:05 BP 158/109 H 09/16/22 12:05 Pulse Ox 96 09/16/22 12:05 O2 Del Method Room Air 09/16/22 12:05 O2 Flow Rate 4 09/15/22 10:38 Testing Laboratory Results 09/15/22 08:12 09/15/22 08:12 PT 10.9 Seconds (9.0-12.0) 09/14/22 16:26 INR 1.0 (0.9-1.1) 09/14/22 16:26 APTT 55.8 Seconds (21.0-31.0) H* 09/16/22 05:39 Blood Type O Negative 09/14/22 16:26 Antibody Screen NEGATIVE 09/14/22 16:26 Electrocardiogram Date: 09/14/22 Findings: + NSR @ (67) and + poor R wave progression Echocardiogram Date: 09/15/22 LV Function: normal Valvular Disease: + no significant valvular disease
[2022-09-16] MEDS ORDERED: LABETALOL HCL IV 5 MG/ML 20ML IV PRN (12:35)
[2022-09-16] MEDS ORDERED: ONDANSETRON INJ 2 MG/ML 2 ML VIAL IV PRN (12:35)
[2022-09-16] MEDS ORDERED: ATROPINE SULFATE 0.1 MG/ML 10ML SYR IV PRN (12:35)
[2022-09-16] MEDS ORDERED: THROMBIN 5000 UNITS KIT ONE (13:27)
[2022-09-16] MEDS ORDERED: HEPARIN (PORCINE) 1000 UNIT/ML 10 ML (CATH LAB USE ONLY) ONE (13:27)
[2022-09-16] MEDS ORDERED: ceFAZolin 330 MG/ML 1 GM VIAL ONE (13:27)
[2022-09-16] MEDS ORDERED: GELATIN SPONGE SZ 100 ONE (13:28)
[2022-09-16] MEDS ORDERED: THROMBIN FOR SOLN 20000 UNIT KIT ONE (14:18)
[2022-09-16] MEDS ORDERED: HEPARIN SOD (PORCINE) 1000 UNIT/ML ONE (14:24)
[2022-09-16] MEDS ORDERED: ROCURONIUM BROMIDE 10 MG/ML 5 ML VIAL IV ONE ×6 (14:32→14:51)
[2022-09-16] MEDS ORDERED: SUGAMMADEX SODIUM 200 MG/2 ML VIAL IV ONE (14:33)
[2022-09-16] MEDS ORDERED: ePHEDrine sulfate 50 MG/ML SYR ONE (15:09)
--- NOTE | 2022-09-16 16:02 | Hospitalist Progress Note ---
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 He currently is on a heparin drip. Left femoropopliteal bypass scheduled for today, September 16 (2) Deep vein thrombosis of left lower extremity: Plan: Probably due to poor circulation. He is currently on a heparin drip. (3) Aneurysm of left popliteal artery: Plan: Vascular surgery aware (4) Hypertension: Plan: Continue losartan and metoprolol (5) Hyperlipidemia: Plan: Continue atorvastatin Plan Left femoropopliteal bypass today, September 16. Hopefully he can be discharged to home soon Admission and Anticipated Discharge Date Admission Date: September 14, 2022 Subjective The patient was out of the room awaiting surgery at the time of my rounds this morning. Review of Systems Review of Systems: Constitutional-no fever or chills ENT-no blurred vision, no double vision, no epistaxis, no sore throat Respiratory-no cough, no wheezing, no shortness of breath Cardiac-no palpitations, no chest pain, no syncope GI-no nausea, vomiting, diarrhea, melena, hematochezia -no urinary retention, no urinary incontinence, no dysuria, no hematuria Musculoskeletal-mild discomfort at right femoral angiography site. Hemostasis has been achieved. He denies left foot pain Skin-no bruising, no rashes, no pruritus Neuro-no isolated weakness, no paresthesia, no weakness Psych-no depression, no anxiety Physical Exam Physical Exam: General-alert and oriented x3, no fevers, no chills HEENT-head atraumatic and normocephalic, TMs intact bilaterally, pupils equal and reactive to light, extraocular muscles intact Neck-no lymphadenopathy or thyromegaly, trachea midline Chest-clear to auscultation percussion. No rales wheezing or rhonchi Cardiac-regular rate and rhythm, normal S1 and S2 Abdomen-normal bowel sounds, nontender, no hepatosplenomegaly Extremities-nonpalpable distal pulses left lower extremity but no overt cyanosis. Neuro-cranial nerves II through XII intact, motor and sensory function within normal limits, strength symmetrical , no focal deficits Psych-normal affect, normal mood Results & Data Results & Data Vital Signs (Past 12 Hours) Vital Signs Temp Pulse Pulse Resp BP Pulse Ox O2 Del Method 09/16/22 13:38 66 09/16/22 12:05 36.7 C 73 20 158/109 H 96 Room Air 09/16/22 11:25 37.0 C 65 18 153/104 H 97 Room Air Laboratory Results 09/15/22 08:12 09/15/22 08:12 PG Care Time/CCT Total # of Minutes Spent Total Time Spent with Patient: Total time spent is greater than 50% in coordination of care (as documented) at patient's floor/unit and/or counseling patient: Coding Level of Care Code 25606 SUB INP/OBS CARE 2/35MIN Diagnoses 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
[2022-09-16] MEDS ORDERED: PROTAMINE SULFATE 10 MG/ML 5 ML VIAL IV ONE (16:05)
[2022-09-16] MEDS ORDERED: METOPROLOL TARTRATE 1 MG/ML VIAL IV ONE (16:11)
[2022-09-16] MEDS ORDERED: hydrALAZINE HCL 20 MG/ML VIAL ONE (16:27)
--- NOTE | 2022-09-16 16:46 | Post Operative Brief Note ---
Immediate Post Op Note v1 Date of Surgery September 16, 2022 Pre & Post Diagnosis Operation Date: 09/16/22 12:40 Pre-Op Diagnosis: ARTERIAL OCCLUSION, DEEP VEIN THROMBOSIS Post-Op Diagnosis: ARTERIAL OCCLUSION, DEEP VEIN THROMBOSIS I identified the patient and participated in the time-out.: Yes Procedure Operation Date: 09/16/22 12:40 Actual Procedures p Femoral to Popliteal Bypass prosthetic Graft(Left) - Taurus Chow MD Surgeon Taurus Chow MD Admission Discharge Rn none Estimated Blood Loss 100 Findings Consistent with Post-Op Diagnosis Anesthesia Type General Complications none Disposition Accompanied Patient To Recovery: No Disposition: Recovery Room
[2022-09-16] MEDS: fentaNYL citrate PF 100 MCG/2 ML VIAL IV PRN ×2 (16:49→16:54)
--- NOTE | 2022-09-16 17:04 | Anesthesiology Progress Note ---
Date of Service September 16, 2022 Anesthesia Post Procedure Vital Signs Vital Signs: Temp Pulse Pulse Pulse Pulse Resp BP 09/16/22 17:00 67 13 106/69 09/16/22 16:50 68 16 109/61 09/16/22 16:43 36.2 C L 72 15 118/76 09/16/22 13:38 66 09/16/22 12:05 36.7 C 73 20 158/109 H 09/16/22 11:25 37.0 C 65 18 153/104 H 09/16/22 03:45 37.1 C 66 18 135/81 09/15/22 23:55 67 149/75 H 09/15/22 23:00 66 09/15/22 20:00 09/15/22 23:03 36.7 C 65 18 177/96 H 09/15/22 19:06 36.9 C 65 18 147/87 H Pulse Ox O2 Del Method O2 Flow Rate 09/16/22 17:00 93 Room Air 09/16/22 16:50 95 Oxymask 6 09/16/22 16:43 96 Oxymask 6 09/16/22 13:38 09/16/22 12:05 96 Room Air 09/16/22 11:25 97 Room Air 09/16/22 03:45 97 Room Air 09/15/22 23:55 09/15/22 23:00 09/15/22 20:00 Room Air 09/15/22 23:03 98 Room Air 09/15/22 19:06 97 Room Air Pain Intensity Left Leg: Pain Intensity: 6 Transfer of Care Handoff Completed per policy Notes Mental Status: alert / awake / arousable and participated in evaluation Patient Amnestic to Procedure: Yes Nausea / Vomiting: adequately controlled Pain: adequately controlled Airway Patency, RR, SpO2: stable & adequate BP & HR: stable & adequate Hydration State: stable & adequate Anesthetic Complications: no major complications apparent and Pt Satisfied with anesthetic care
[2022-09-16 17:11] LABS: Basophils # (auto) 0.04 K/uL (0-0.2); Basophils % (auto) 0.4 %; Eosinophils # (auto) 0.12 K/uL (0-0.50); Eosinophils % (auto) 1.2 %; Hematocrit (blood only) 39.2 % (42.0-52.0); Hemoglobin 13.8 g/dl (14.0-18.0); Immature Granulocytes # (auto) 0.05 K/uL (0.01-0.20); Immature Granulocytes % (auto) 0.5 %; Lymphocytes # (auto) 1.15 K/uL (1.2-3.4); Lymphocytes % (auto) 11.5 %; Mean Corpuscular Hemoglobin 34.2 pg (25.0-34.0); Mean Corpuscular Hgb Conc 35.2 g/dL (32.0-36.0); Mean Platelet Volume 10.4 fL (9.4-12.4); Neutrophils # (auto) 8.25 K/uL (1.40-6.50); Neutrophils % (auto) 82.4 %; Platelet Count 148 K/uL (130-400); RDW Coefficient of Variation 13.6 % (11.5-14.5); RDW Standard Deviation 48.8 fL (36.4-46.3); Red Blood Count 4.04 M/uL (4.70-6.10); White Blood Count 10.01 K/ul (4.8-10.8)
[2022-09-16] MEDS ORDERED: MoRPHine SULFATE 4 MG/ML 1 ML CARP\\VIAL IV PRN (17:32)
[2022-09-16] MEDS ORDERED: D5W AND 1/2NSS 1,000 ML IV SCH (17:32)
[2022-09-16] MEDS: oxyCODONE/ACETAMINOPHEN 5mg/325mg TAB PO PRN (19:47)
[2022-09-16] MEDS: ATORVASTATIN 20 MG TAB PO SCH (19:49)
[2022-09-16] MEDS: traZODone HCL 50 MG TAB PO SCH (19:50)
[2022-09-16] MEDS: ceFAZolin 2000MG 2,000 MG/15 ML SYR IV SCH (19:56)
--- NOTE | 2022-09-16 20:26 | Critical Care Consultation ---
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 Patient now being monitored in ICU postop DOS. Heparin drip Is now on hold. He is receiving Ancef postop. Defer to surgical team for further management. (2) Hyperlipidemia: Continue statin (3) Hypertension: Continue MTP, losartan. Monitor (4) Esophagitis: Continue PPI History of Present Illness Attending Physician: Jabari Cota MD History of Present Illness Patient is a 77-year-old male with past medical history of HTN, HLD, GERD, GI bleed, CAD who presented to the emergency department on 09/14 after developing numbness and calf pain. Ultrasound showed popliteal artery aneurysm 3 cm and thrombosed left superficial femoral artery with poor outflow. Patient was found to have long occlusion thrombus with occluded popliteal artery aneurysm precluding endovascular intervention. Therefore, plans were made with endovascular surgery to perform left femoral to tibioperoneal trunk bypass, which he now presents to the ICU postop. On arrival to the ICU the patient is alert and oriented Without acute distress. He has dopplerable pulses to the left lower extremity and it is warm. Patient does state that he still has some numbness to the left lower extremity but he thinks it has improved. Patient denies any recent illness, fevers, headache or dizziness, syncopal events, sore throat or cough, shortness of breath, chest pain, palpitations, abdominal pain, nausea vomiting or diarrhea, swelling in hands or feet, changes in gait. Patient states that he is normally active and enjoys being outside and riding his electric bike. He lives independently since his passed 2 years ago. We will monitor the patient in ICU overnight, He currently remains hemodynamically stable. Allergies Allergy/AdvReac Type Severity Reaction Status Date / Time indomethacin AdvReac Unknown 40 YR AGO, Verified 11/25/21 15:09 anxiety Home Medications Medication Instructions Recorded Confirmed Type atorvastatin 20 mg tablet 20 mg PO QPM 04/18/21 09/14/22 History multivitamin 1 tab PO QAM 04/18/21 09/14/22 History trazodone 50 mg tablet 50 mg PO HS 04/18/21 09/14/22 History losartan 50 mg tablet 50 mg PO QAM 03/14/22 05/17/23 History pantoprazole 40 mg tablet,delayed 40 mg PO DAILY #90 tabs 02/24/22 09/14/22 Rx release allopurinol 100 mg tablet 200 mg PO DAILY 09/14/22 09/14/22 History metoprolol succinate 25 mg 50 mg PO QAM 09/14/22 09/14/22 History tablet,extended release 24 hr Patient History Medical History History of myocardial infarction DISCUSSED INCIDENTAL FINDING/NO HX INTERVENTION History of prostate cancer 2005/SX INTERVENTION History of rectal bleeding COLONOSCOPY FOR MAR 2021 - NO FINDINGS RE-OCCURENCE RECTAL BLEEDING AUGUST 2021 - REASON FOR UPCOMING EGD Hyperlipidemia Hypertension Surgical History History of cataract surgery BILAT History of colonoscopy History of hernia surgery History of prostatectomy History of shoulder surgery RX1, LX1 METAL CAP PLACED TO REPLACE JOINT ON BOTH SHOULDERS Family History Brother Family history of colon cancer Other Cancer No family history of adverse response to anesthesia No family history of bleeding disorder Stroke Social History Smoking Status: Never smoker Second Hand Exposure: No; Do You Dip or Chew Tobacco: No; Tobacco Cessation Education Requested by Patient: No Hx Alcohol Use: Yes Alcohol type: beer Hx Substance Use: No Preferred Language: Vietnamese Communication Ability: Effective Contact Acid Plant 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 Required: No Beliefs That Will Affect Care: None Current Living Situation: Alone Other Information That Helps Us Care for You: No Feels Safe at Home: Yes Safety Concerns: Feels Safe At This Time Assistive Devices: None Review of Systems Review of Systems: All systems reviewed & are unremarkable except as noted in HPI & below Physical Exam Constitutional: cooperative and comfortable; no acute distress Eyes: PERRL, conjunctivae normal, anicteric sclerae ENMT: external ear and nose normal, oropharynx normal Neck: trachea midline, no thyromegaly Respiratory: normal respiratory effort, lungs clear to auscultation Cardiovascular: RRR, no murmur, no edema Heart Sounds: normal S1 and normal S2; no murmur Extremities: no edema Gastrointestinal (Abdomen): normal bowel sounds, soft, nontender, no hepatos plenomegaly Musculoskeletal: no cyanosis or clubbing, extremities motor strength 5/5 Skin: no rashes, warm and dry Neurologic: PERRL, EOMI, accommodation nl, no face palsy, no dysarthria Psychiatric: A+Ox3, euthymic affect Results & Data Results & Data Vital Signs (Past 12 Hours) Vital Signs Temp Pulse Pulse Pulse Resp BP BP 09/16/22 18:15 71 22 09/16/22 18:00 73 18 09/16/22 18:00 111/74 09/16/22 17:45 65 12 09/16/22 17:30 66 18 09/16/22 17:10 36.3 C L 60 12 100/61 09/16/22 17:00 67 13 106/69 09/16/22 16:50 68 16 109/61 09/16/22 16:43 36.2 C L 72 15 118/76 09/16/22 13:38 66 09/16/22 12:05 36.7 C 73 20 158/109 H 09/16/22 11:25 37.0 C 65 18 153/104 H Pulse Ox O2 Del Method O2 Flow Rate 09/16/22 18:15 95 09/16/22 18:00 96 09/16/22 18:00 09/16/22 17:45 95 09/16/22 17:30 95 09/16/22 17:10 94 Room Air 09/16/22 17:00 93 Room Air 09/16/22 16:50 95 Oxymask 6 09/16/22 16:43 96 Oxymask 6 09/16/22 13:38 09/16/22 12:05 96 Room Air 09/16/22 11:25 97 Room Air [place] [address] IN/OBS CONSULT LVL 4,60M Patient Type New History Detailed Exam Comprehensive Medical Decision Making Low Complexity Diagnoses 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
[2022-09-17] MEDS: oxyCODONE/ACETAMINOPHEN 5mg/325mg TAB PO PRN ×4 (02:15→22:18)
[2022-09-17] MEDS: ceFAZolin 2000MG 2,000 MG/15 ML SYR IV SCH (05:44)
[2022-09-17] MEDS: LOSARTAN POTASSIUM 50 MG TAB PO SCH (08:07)
[2022-09-17] MEDS: allopurinoL 100 MG TAB PO SCH (08:07)
[2022-09-17] MEDS: MULTIVITAMIN TAB PO SCH (08:08)
[2022-09-17] MEDS: METOPROLOL SUCC 25MG EXT REL TAB PO SCH ×2 (08:08→20:37)
[2022-09-17] MEDS: PANTOprazole 40 MG TAB PO SCH (08:09)
--- NOTE | 2022-09-17 08:21 | Surgery Progress Note ---
Date of Service September 17, 2022 Assessment & Plan (1) S/P femoral-popliteal bypass surgery: Plan: Patient post op day 1 from a left fem pop bypass. Doing very well Will increase activity and transfer to the floor Will start Eliquis to help maintain graft patency. Admission and Anticipated Discharge Date Admission Date: September 14, 2022 Subjective Patient without complaints of foot or leg pain other than the incision. Physical Exam Constitutional: WD/WN, vitals as above Respiratory: normal respiratory effort; no respiratory distress Cardiovascular: Rate/Rhythm: regular rate and regular rhythm Vessels: posterior tibial pulses present and dorsalis pedis pulses present Musculoskeletal: no cyanosis or clubbing, extremities motor strength 5/5 Skin: + incision (dressings intact) Neurologic: CN's II-XI intact bilaterally and moves all extremities Psychiatric: Orientation: alert and oriented x 3 Results & Data Vital Signs (Past 12 Hours) Vital Signs Temp Pulse Resp BP Pulse Ox 09/17/22 06:20 63 19 95 09/17/22 06:10 66 21 95 09/17/22 06:01 63 21 97 09/17/22 06:01 127/80 09/17/22 06:00 62 18 96 09/17/22 05:50 62 17 97 09/17/22 05:40 68 21 94 09/17/22 05:30 66 15 93 09/17/22 05:20 63 12 94 09/17/22 05:10 67 14 93 09/17/22 05:00 63 15 93 09/17/22 05:00 92/64 L 09/17/22 04:57 36.6 C 09/17/22 00:00 36.7 C 09/16/22 21:00 36.6 C 09/17/22 04:50 63 8 L 94 09/17/22 04:40 67 9 L 93 09/17/22 04:30 63 17 94 09/17/22 04:20 63 12 93 09/17/22 04:10 65 23 93 09/17/22 04:00 64 16 94 09/17/22 04:00 89/67 L 09/17/22 03:50 64 17 95 09/17/22 03:40 63 16 95 09/17/22 03:30 60 19 97 09/17/22 03:20 65 13 95 09/17/22 03:10 63 21 94 05/20/23 03:00 66 18 95 05/20/23 03:00 95/70 L 05/20/23 02:50 62 17 96 05/20/23 02:40 69 21 95 05/20/23 02:30 68 22 95 05/20/23 02:20 68 24 98 05/20/23 02:10 74 23 95 05/20/23 02:00 68 28 H 95 05/20/23 02:00 114/81 05/20/23 01:50 63 23 95 05/20/23 01:40 62 16 96 05/20/23 01:30 71 18 96 05/20/23 01:20 67 16 95 05/20/23 01:10 66 16 94 05/20/23 01:00 67 17 95 05/20/23 01:00 104/76 05/20/23 00:50 66 14 94 05/20/23 00:40 67 18 95 05/20/23 00:30 67 21 95 05/20/23 00:20 68 18 95 05/20/23 00:10 68 28 H 96 05/20/23 00:00 68 20 95 05/20/23 00:00 122/80 05/19/23 23:50 64 16 95 05/19/23 23:40 75 23 91 05/19/23 23:30 79 20 94 05/19/23 23:20 72 14 95 05/19/23 23:10 63 16 94 05/19/23 23:00 75 15 92 05/19/23 23:00 105/76 05/19/23 22:50 69 20 93 05/19/23 22:40 71 13 95 05/19/23 22:30 74 19 95 05/19/23 22:20 72 20 95 05/19/23 22:10 77 24 94 05/19/23 22:00 78 16 93 05/19/23 22:00 123/85 05/19/23 21:50 81 17 94
[2022-09-17] MEDS: APIXABAN 5 MG TABLET PO SCH ×2 (09:39→20:38)
--- NOTE | 2022-09-17 14:06 | Hospitalist Progress Note ---
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 Postoperative day #1 after left femoropopliteal bypass. Eliquis has been started by vascular surgery. He is stable to be moved out of the intensive care unit today, September 17 (2) Deep vein thrombosis of left lower extremity: Plan: Probably due to poor circulation. Heparin drip has been converted to oral Eliquis (3) Aneurysm of left popliteal artery: Plan: Vascular surgery aware (4) Hypertension: Plan: Continue losartan and metoprolol (5) Hyperlipidemia: Plan: Continue atorvastatin Plan Left femoropopliteal bypass completed on September 16. Hopefully he can be discharged to home soon Admission and Anticipated Discharge Date Admission Date: September 14, 2022 Subjective Alert and oriented. No acute distress. Postoperative day 1 after left lower extremity femoropopliteal bypass. Eliquis has been started by vascular surgery. He will be transferred out of the ICU today. Review of Systems Review of Systems: Constitutional-no fever or chills ENT-no blurred vision, no double vision, no epistaxis, no sore throat Respiratory-no cough, no wheezing, no shortness of breath Cardiac-no palpitations, no chest pain, no syncope GI-no nausea, vomiting, diarrhea, melena, hematochezia -no urinary retention, no urinary incontinence, no dysuria, no hematuria Musculoskeletal-left leg surgical wounds intact. Left foot warm and dry. He denies left foot pain Skin-no bruising, no rashes, no pruritus Neuro-no isolated weakness, no paresthesia, no weakness Psych-no depression, no anxiety Physical Exam Physical Exam: General-alert and oriented x3, no fevers, no chills HEENT-head atraumatic and normocephalic, TMs intact bilaterally, pupils equal and reactive to light, extraocular muscles intact Neck-no lymphadenopathy or thyromegaly, trachea midline Chest-clear to auscultation percussion. No rales wheezing or rhonchi Cardiac-regular rate and rhythm, normal S1 and S2 Abdomen-normal bowel sounds, nontender, no hepatosplenomegaly Extremities-left leg surgical sites are unremarkable and healing uneventfully. Left foot is warm. Neuro-cranial nerves II through XII intact, motor and sensory function within normal limits, strength symmetrical , no focal deficits Psych-normal affect, normal mood Results & Data Results & Data Vital Signs (Past 12 Hours) Vital Signs Temp Pulse Pulse Resp BP BP Pulse Ox 09/17/22 10:43 36.5 C 81 16 164/79 H 99 09/17/22 08:30 75 97 09/17/22 08:00 81 17 96 09/17/22 08:00 126/88 09/17/22 07:30 93 H 90 09/17/22 07:00 66 97 09/17/22 07:00 139/87 09/17/22 08:50 63 09/17/22 06:20 63 19 95 09/17/22 06:10 66 21 95 09/17/22 06:01 63 21 97 09/17/22 06:01 127/80 09/17/22 06:00 62 18 96 09/17/22 05:50 62 17 97 09/17/22 05:40 68 21 94 09/17/22 05:30 66 15 93 09/17/22 05:20 63 12 94 09/17/22 05:10 67 14 93 09/17/22 05:00 63 15 93 09/17/22 05:00 92/64 L 09/17/22 04:57 36.6 C 09/17/22 04:50 63 8 L 94 09/17/22 04:40 67 9 L 93 09/17/22 04:30 63 17 94 09/17/22 04:20 63 12 93 09/17/22 04:10 65 23 93 09/17/22 04:00 64 16 94 09/17/22 04:00 89/67 L 09/17/22 03:50 64 17 95 09/17/22 03:40 63 16 95 09/17/22 03:30 60 19 97 09/17/22 03:20 65 13 95 09/17/22 03:10 63 21 94 09/17/22 03:00 66 18 95 09/17/22 03:00 95/70 L 09/17/22 02:50 62 17 96 09/17/22 02:40 69 21 95 09/17/22 02:30 68 22 95 09/17/22 02:20 68 24 98 09/17/22 02:10 74 23 95 O2 Del Method 09/17/22 10:43 Room Air 09/17/22 08:30 Room Air 09/17/22 08:00 Room Air 09/17/22 08:00 09/17/22 07:30 Room Air 09/17/22 07:00 Room Air 09/17/22 07:00 09/17/22 08:50 09/17/22 06:20 09/17/22 06:10 09/17/22 06:01 09/17/22 06:01 09/17/22 06:00 09/17/22 05:50 09/17/22 05:40 09/17/22 05:30 09/17/22 05:20 09/17/22 05:10 09/17/22 05:00 09/17/22 05:00 09/17/22 04:57 09/17/22 04:50 09/17/22 04:40 09/17/22 04:30 09/17/22 04:20 09/17/22 04:10 09/17/22 04:00 09/17/22 04:00 09/17/22 03:50 09/17/22 03:40 09/17/22 03:30 09/17/22 03:20 09/17/22 03:10 09/17/22 03:00 09/17/22 03:00 09/17/22 02:50 09/17/22 02:40 09/17/22 02:30 09/17/22 02:20 09/17/22 02:10 Laboratory Results 09/16/22 16:52 09/15/22 08:12 PG Care Time/CCT Total # of Minutes Spent Total Time Spent with Patient: Total time spent is greater than 50% in coordination of care (as documented) at patient's floor/unit and/or counseling patient: Coding Level of Care Code 91610 SUB INP/OBS CARE 2/35MIN Diagnoses 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
[2022-09-17] MEDS: ATORVASTATIN 20 MG TAB PO SCH (20:38)
[2022-09-17] MEDS: traZODone HCL 50 MG TAB PO SCH (20:41)
[2022-09-18] MEDS: LOSARTAN POTASSIUM 50 MG TAB PO SCH (08:06)
[2022-09-18] MEDS: APIXABAN 5 MG TABLET PO SCH ×2 (08:06→21:05)
[2022-09-18] MEDS: PANTOprazole 40 MG TAB PO SCH (08:06)
[2022-09-18] MEDS: allopurinoL 100 MG TAB PO SCH (08:06)
[2022-09-18] MEDS: MULTIVITAMIN TAB PO SCH (08:06)
[2022-09-18] MEDS: METOPROLOL SUCC 25MG EXT REL TAB PO SCH ×2 (08:06→21:05)
--- NOTE | 2022-09-18 09:04 | Surgery Progress Note ---
Date of Service September 18, 2022 Assessment & Plan (1) S/P femoral-popliteal bypass surgery: Plan: Patient post op day 2 from a left fem pop bypass. Doing very well. Foot numbness has improved post bypass. Started on eliquis for graft patency. Increase activity. Admission and Anticipated Discharge Date Admission Date: September 14, 2022 Subjective Alert and oriented. No acute distress. Complains of left leg discomfort from surgery. Claims numbness of left foot has improved. Physical Exam Constitutional: WD/WN, vitals as above Respiratory: normal respiratory effort; no respiratory distress Cardiovascular: Rate/Rhythm: regular rate and regular rhythm Vessels: posterior tibial pulses present (palpable on left) Musculoskeletal: no cyanosis or clubbing, extremities motor strength 5/5 Skin: + incision (dressings intact) Neurologic: CN's II-XI intact bilaterally and moves all extremities Psychiatric: Orientation: alert and oriented x 3 Results & Data Vital Signs (Past 12 Hours) Vital Signs Temp Pulse Resp BP Pulse Ox O2 Del Method 09/18/22 07:50 36.9 C 83 18 131/81 98 Room Air
[2022-09-18 10:06] LABS: Basophils # (auto) 0.04 K/uL (0-0.2); Basophils % (auto) 0.4 %; Eosinophils # (auto) 0.18 K/uL (0-0.50); Eosinophils % (auto) 1.8 %; Hematocrit (blood only) 42.3 % (42.0-52.0); Hemoglobin 14.3 g/dl (14.0-18.0); Immature Granulocytes # (auto) 0.04 K/uL (0.01-0.20); Immature Granulocytes % (auto) 0.4 %; Lymphocytes # (auto) 1.83 K/uL (1.2-3.4); Lymphocytes % (auto) 18.2 %; Mean Corpuscular Hemoglobin 33.6 pg (25.0-34.0); Mean Corpuscular Hgb Conc 33.8 g/dL (32.0-36.0); Mean Corpuscular Volume 99.5 fL (80.0-100.0); Mean Platelet Volume 10.4 fL (9.4-12.4); Monocytes # (auto) 0.92 K/uL (0.11-0.59); Monocytes % (auto) 9.1 %; Neutrophils # (auto) 7.07 K/uL (1.40-6.50); Neutrophils % (auto) 70.1 %; Platelet Count 152 K/uL (130-400); RDW Coefficient of Variation 14.1 % (11.5-14.5); RDW Standard Deviation 51.1 fL (36.4-46.3); Red Blood Count 4.25 M/uL (4.70-6.10); White Blood Count 10.08 K/ul (4.8-10.8)
[2022-09-18 10:24] LABS: BUN Creatinine Ratio 18.4 (10-20); Calcium 9.1 mg/dl (8.6-10.3); Creatinine Clr Calc Pharmacy 64.1 ml/min; Est GFR (African American) 81.4 ml/min; Est GFR (Non-African American) 70.2 ml/min; Potassium 3.9 mmol/L (3.5-5.1)
--- NOTE | 2022-09-18 13:48 | Hospitalist Progress Note ---
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 Postoperative day #2 after left femoropopliteal bypass. Eliquis has been started by vascular surgery. (2) Deep vein thrombosis of left lower extremity: Plan: Probably due to poor circulation. Heparin drip has been converted to oral Eliquis (3) Aneurysm of left popliteal artery: Plan: Vascular surgery aware (4) Hypertension: Plan: Continue losartan and metoprolol (5) Hyperlipidemia: Plan: Continue atorvastatin Plan Left femoropopliteal bypass completed on September 16. Hopefully he can be discharged to home soon. Possibly tomorrow, September 19 Admission and Anticipated Discharge Date Admission Date: September 14, 2022 Subjective Alert and oriented. Medically stable. Postoperative day 2 after left femoropopliteal bypass. Hopefully he can go home tomorrow, September 19. Vascular surgery entry noted Review of Systems Review of Systems: Constitutional-no fever or chills ENT-no blurred vision, no double vision, no epistaxis, no sore throat Respiratory-no cough, no wheezing, no shortness of breath Cardiac-no palpitations, no chest pain, no syncope GI-no nausea, vomiting, diarrhea, melena, hematochezia -no urinary retention, no urinary incontinence, no dysuria, no hematuria Musculoskeletal-left leg surgical wounds intact. Left foot warm and dry. He denies left foot pain Skin-no bruising, no rashes, no pruritus Neuro-no isolated weakness, no paresthesia, no weakness Psych-no depression, no anxiety Physical Exam Physical Exam: General-alert and oriented x3, no fevers, no chills HEENT-head atraumatic and normocephalic, TMs intact bilaterally, pupils equal and reactive to light, extraocular muscles intact Neck-no lymphadenopathy or thyromegaly, trachea midline Chest-clear to auscultation percussion. No rales wheezing or rhonchi Cardiac-regular rate and rhythm, normal S1 and S2 Abdomen-normal bowel sounds, nontender, no hepatosplenomegaly Extremities-left leg surgical sites are unremarkable and healing uneventfully. Left foot is warm. Neuro-cranial nerves II through XII intact, motor and sensory function within normal limits, strength symmetrical , no focal deficits Psych-normal affect, normal mood Results & Data Results & Data Vital Signs (Past 12 Hours) Vital Signs Temp Pulse Resp BP Pulse Ox O2 Del Method 09/18/22 07:50 36.9 C 83 18 131/81 98 Room Air Laboratory Results 09/18/22 09:32 09/18/22 09:32 PG Care Time/CCT Total # of Minutes Spent Total Time Spent with Patient: Total time spent is greater than 50% in coordination of care (as documented) at patient's floor/unit and/or counseling patient: Coding Level of Care Code 76674 SUB INP/OBS CARE 2/35MIN Diagnoses 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
[2022-09-18] MEDS: ATORVASTATIN 20 MG TAB PO SCH (21:05)
[2022-09-18] MEDS: oxyCODONE/ACETAMINOPHEN 5mg/325mg TAB PO PRN (21:05)
[2022-09-18] MEDS: traZODone HCL 50 MG TAB PO SCH (21:05)
[2022-09-19] MEDS: LOSARTAN POTASSIUM 50 MG TAB PO SCH (09:02)
[2022-09-19] MEDS: METOPROLOL SUCC 25MG EXT REL TAB PO SCH (09:02)
[2022-09-19] MEDS: MULTIVITAMIN TAB PO SCH (09:02)
[2022-09-19] MEDS: PANTOprazole 40 MG TAB PO SCH (09:03)
[2022-09-19] MEDS: APIXABAN 5 MG TABLET PO SCH (09:03)
[2022-09-19] MEDS: allopurinoL 100 MG TAB PO SCH (09:03)
--- NOTE | 2022-09-19 10:15 | Surgery Progress Note ---
Date of Service September 19, 2022 Assessment & Plan (1) S/P femoral-popliteal bypass surgery: Plan: Patient post op day 3 from a left fem pop bypass. Doing very well. Foot numbness has improved post bypass. Started on eliquis for graft patency. Will need to continue this at d/c. OK for d/c from vascular surgery standpoint. Will see in office in 2 weeks for f/u. Admission and Anticipated Discharge Date Admission Date: September 14, 2022 Subjective 77 yo m POD #3 after LLE fem-pop prosthetic BPG, seen in f./u today. Pt denies any new complaints. Admits incisional pain LLE, but states foot is feeling good. Is hoping for d/c home soon. Review of Systems Review of Systems: All systems reviewed & are unremarkable except as noted in HPI & below Physical Exam Constitutional: WD/WN, vitals as above Cardiovascular: RRR, no murmur, no edema Rate/Rhythm: regular rate and regular rhythm Vessels: posterior tibial pulses present (palpable on left) and dorsalis pedis pulses present Musculoskeletal: no cyanosis or clubbing, extremities motor strength 5/5 Skin: + incision (dressings intact) Neurologic: CN's II-XI intact bilaterally and moves all extremities Psychiatric: Orientation: alert and oriented x 3 Results & Data Vital Signs (Past 12 Hours) Vital Signs Temp Pulse Pulse Resp BP Pulse Ox O2 Del Method 09/19/22 07:59 36.6 C 79 19 120/81 97 Room Air 09/19/22 07:13 36.7 C 81 18 143/89 H 97 Room Air
--- NOTE | 2022-09-19 11:57 | Discharge Summary ---
Date of Service September 19, 2022 Admission HPI Per Admitting Provider Bulmaro Gutierrez is a 77 year old male who presents to the ER following an abnormal outpatient arterial US doppler. He reports symptoms started on Monday night after coming home from a alliance party he tripped and fell backwards on a step and felt his left calf was sprained following this with aching all night. The next day (3 days ago) he woke up and his left foot was numb and cold. This did not improve therefore he went to see his PCP yesterday who organized and left lower extremity US arterial doppler which he had today. This showed significant arterial thrombus disease in his left lower extremity with collateral vessels and also a deep vein thrombosis therefore he was sent straight to the ER for evaluation. Case was discussed between the ER physician and vascular surgery who recommended admission under medicine and to start on intravenous heparin overnight for intervention tomorrow. The patient denies any history of atrial fibrillation, blood clots or stroke. He reports being told during a stress test he may have had a heart attack in the past but no coronary artery disease confirmed on catheterization. He denies any current shortness of breath or chest pain. No recent surgeries. No claudication. Most recent long haul travel to [place] in July by car although this was broken up to 5-6 hour segments. Admission Exam Per Admitting Provider Constitutional: WD/WN, vitals as above Eyes: PERRL, conjunctivae normal, anicteric sclerae ENMT: external ear and nose normal, oropharynx normal Neck: trachea midline, no thyromegaly Respiratory: normal respiratory effort, lungs clear to auscultation Cardiovascular: RRR, no murmur, no edema Vessels: posterior tibial pulses present (b/l but reduced on left); + dorsalis pedis pulses abnormal (absent on left side) Extremities: + calf tenderness (left); + abnormal capillary refill (8 seconds left 1st toe, 4 seconds on right) and no pedal edema Gastrointestinal (Abdomen): normal bowel sounds, soft, nontender, no hepatosplenomegaly Musculoskeletal: no cyanosis or clubbing, extremities motor strength 5/5 Skin: no rashes, warm and dry Neurologic: moves all extremities and awake; not confused Psychiatric: A+Ox3, euthymic affect Principal Diagnosis LLE femoropopliteal arterial thrombosis Discharge Exam Constitutional WD/WN, vitals as above Neck trachea midline, no thyromegaly Respiratory normal respiratory effort, lungs clear to auscultation Cardiovascular RRR, no murmur, no edema Extremities: normal capillary refill and + edema; no calf tenderness Gastrointestinal (Abdomen) normal bowel sounds, soft, nontender, no hepatosplenomegaly Skin Left leg jose intact, skin edges approximated and lesion clean and dry Psychiatric A+Ox3, euthymic affect Discharge Data Allergies Allergy/AdvReac Type Severity Reaction Status Date / Time indomethacin AdvReac Unknown 40 YR AGO, Verified 11/25/21 15:09 anxiety Consultations 09/14/22 15:38 Consult Vascular Surgery Stat 09/14/22 15:55 ED Decision to Admit Stat 09/16/22 17:32 Consult Hull Drafter Routine Procedures Performed Operation Date: 09/16/22 12:40 Actual Procedures p Femoral Posterior Tib Bypass prosthetic Graft(Left) - Taurus Chow MD Ordered Studies 09/14/22 19:36 US venous doppler LE LT Urgent 09/15/22 08:43 EV angio LE LT Routine US EV guide vascular access Routine 09/15/22 10:49 US venous mapping LE BI Routine Hospital Course (1) 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 Eliquis 5mg BID has been started by vascular surgery. Per vascular surgery ok to discharge home today (2) Deep vein thrombosis of left lower extremity: Probably due to poor circulation. Heparin drip has been converted to oral Eliquis (3) Aneurysm of left popliteal artery: Vascular surgery aware (4) Hypertension: Chronic and stable Continue losartan and metoprolol (5) Hyperlipidemia: Chronic and stable Continue atorvastatin Plan Left femoropopliteal bypass completed on September 16. Discharge to home today Total Time Total Time Spent Total Time Spent (In Minutes): 45 Discharge Plan Discharge Items Patient Disposition: Home - Self-Care Reason For Visit: ARTERIAL OCCLUSION, DEEP VEIN THROMBOSIS Discharge Diagnosis: Femoropopliteal arterial thrombosis left Condition on Discharge: Good Activity: Per Instructions section Lifting Comment: no more than 20 Pounds Bathing Comment: ok to shower, NO soaking, Leave incision open to air Non-emergency contact: Primary Care Provider and Surgeon Call non-emergency contact if: you have any medication questions, your symptoms worsen, your pain is worsening, your pain is concerning for you, you have a fever, your wound has increased redness, your wound has increased drainage and your wound pain has increased Follow-up/Referrals: Martell Cantu [Primary Care Provider] - Diet: Heart Healthy and Low Sodium (2gm) Addtl Attending Provider Instructions: you were admitted and found to have a thrombus in your left leg and underwent a femoropopliteal bypass You should follow up with vascular surgery in 2 weeks Per vascular surgery you are able to shower but no soaking and should leave the incision open to the air. No lifting greater than 20# You are started on Eliquis 5mg one BID and this is at [facility] on [address]. They have to order the medication BUT they will give you a partial prescription until the complete order is in. You had your AM dose and will need to take the evening dose tonight at 9:00 PM You also are given a pain medication for as needed. It is important to stay active, drink plenty of water and use miralax 17gm as needed for constipation. If no BM by tomorrow should take 17gm miralax tomorrow. Pending Studies at Discharge: No Stand-Alone Forms: [facility] Medications and DC Order Prescriptions: New Eliquis 5 mg Tablet 5 mg PO BID Qty: 60 11RF oxycodone-acetaminophen [Percocet] 5-325 mg Tablet 1 - 2 tab PO Q6H PRN (Reason: pain) Qty: 30 0RF Continued pantoprazole 40 mg tablet,delayed release (DR/EC) 40 mg PO DAILY Qty: 90 3RF losartan 50 mg tablet 50 mg PO QAM allopurinol 100 mg tablet 200 mg PO DAILY metoprolol succinate 25 mg tablet extended release 24 hr 50 mg PO QAM multivitamin Tablet 1 tab PO QAM atorvastatin 20 mg tablet 20 mg PO QPM trazodone 50 mg tablet 50 mg PO HS Discharge Orders: Discharge Order (Routine); Ordered 09/19/22 Ordered By: Jeanine Bourne/Other Patient Handouts: Arterial Occlusion Acute Admission Data Admit Date/Time: 09/14/22 17:23 Attending Provider: Jose Chavarria Admit Provider: Paul Baird Primary Care Provider: Martell Cantu Other Providers: Taurus Chow ; Paul Baird ; Alireza Noble ; Martell Mccabe ; Maico Samuel ; Akin Borrego ; Prieto Fontaine ; Florencio Maddox ; Carlene Babb ; Serge Silva ; Alexa Hyman Other Interventions: Discharge Summary Assessment (RN) Last Done: 09/19/22 14:20 Supervising Physician Co-Signing Physician Notes During face to face encounter, I obtained a brief physical examination, discussed hospital stay with patient and discharge instructions with patient. I discussed discharge plan of care with DEANNA Mccracken. I reviewed above note and agree with it except for the following: Patient had a femoral popliteal bypass surgery. Patient will be discharged on eliquis. 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
--- NOTE | 2022-10-07 10:00 | Operative Report ---
Post Operative Report Pre & Post Diagnosis Operation Date: 09/16/22 12:40 Pre-Op Diagnosis: ARTERIAL OCCLUSION, DEEP VEIN THROMBOSIS Post-Op Diagnosis: ARTERIAL OCCLUSION, DEEP VEIN THROMBOSIS I identified the patient and participated in the time-out.: Yes Procedure Operation Date: 09/16/22 12:40 Actual Procedures p Femoral Posterior Tib Bypass prosthetic Graft(Left) - Taurus Chow MD Surgeon Taurus Chow MD Clinic Cma none Estimated Blood Loss 100 Findings Consistent with Post-Op Diagnosis Specimens none Anesthesia Type General Complications none Disposition Accompanied Patient To Recovery: No Disposition: Recovery Room Indications This is a 77-year-old gentleman who was admitted with rest pain and left lower extremity and found to have occluded popliteal artery and a popliteal artery aneurysm. Arteriography revealed that the only runoff vessel was the posterior tibial to the foot. Femoral to posterior tibial artery bypass with ligation of the aneurysm was recommended. I have discussed the risks options and benefits of the procedure with the patient. The patient understands the risks options and benefits and agrees to the procedure. Description of Procedure The patient was taken the operating placed spine position. After general anesthesia was accomplished the left lower extremities prepped draped in a sterile manner. A timeout was performed and the patient was identified. A longitudinal incision was made in the mid left thigh. This carried down for the femoral artery was identified. The saphenous vein was seen in not usable for bypass. We then made another incision below the knee exposing the popliteal artery distally in the proximal posterior tibial artery. Patient was heparinized at that time. A tunnel was made between the 2 incision and a 6 mm ringed [place]-Tucker graft was passed through the tunnel. The superficial femoral artery was then clamped proximal distally. Longitudinal arteriotomy was performed. The graft was beveled and an end to side anastomosis was accomplished using the 5-0 Prolene suture in usual vascular fashion. Clamp was then placed on the [place]-Tucker graft and clamps removed from the superficial femoral artery. Anastomosis showed adequate hemostasis. The posterior tibial artery was then clamped proximally distally at its origin. Longitudinal arteriotomy was then performed. It was of good caliber and soft. The [place]-Tucker graft was then pulled the appropriate length trimmed and beveled and into side anastomosis was then accomplished using 6-0 Prolene suture in usual vascular fashion. Prior to completing the closure back bleeding and forward bleeding was allowed to occur. Final few sutures placed and securely tied. Clamps and removed. After hemostasis was seen at the anastomotic sites. Excellent flow was seen to the foot. Good Doppler signals were heard at the posterior tibial artery. Using a 2-0 silk suture the aneurysm was then ligated proximally and distally just above and below the aneurysm sac. Wound was then inspected. Active hemostasis was seen. Wounds were then closed in usual fashion using running 3-0 Vicryl suture for subcutaneous layer and jose for the skin. Sterile dressings were applied.The patient left the operation room in satisfactory condition and tolerated the procedure well. All needle and sponge counts were correct at the end of the procedure. I attest to the content of the Intraoperative Record and any orders documented therein. Any exceptions are noted below.
== END 2022-09-19 15:03 | disposition home or self-care (01) | DRG 253 ==
LOC: ED 15:00 → 2S 17:23 → SUATTDRO 17:23 → 2S 19:19 → 1E 09-16 17:32 → 3E 09-17 10:01

== ENCOUNTER 2023-09-13 11:16 | Inpatient (IN) ==
--- NOTE | 2023-08-31 13:24 | PAT Medication Instructions ---
Medication Instructions Date of Service August 31, 2023 Home Medications Medication Instructions Recorded apixaban 5 mg tablet (Eliquis) 5 mg PO BID #60 tabs 09/19/22 atorvastatin 20 mg tablet 20 mg PO QPM multivitamin 1 tab PO QAM trazodone 50 mg tablet 50 mg PO HS losartan 50 mg tablet 100 mg PO QAM allopurinol 100 mg tablet 100 mg PO BID metoprolol succinate 25 mg tablet,extended release 24 hr 25 mg PO BID apixaban 5 mg tablet (Eliquis) 5 mg PO BID Bifidobacterium infantis 4 mg capsule (Align) 4 mg PO QAM pantoprazole 40 mg tablet,delayed release 40 mg PO QAM ASK your prescriber and surgeon apixaban 5 mg tablet (Eliquis) 5 mg PO BID DO NOT take the morning of surgery multivitamin 1 tab PO QAM losartan 50 mg tablet 100 mg PO QAM Bifidobacterium infantis 4 mg capsule (Align) 4 mg PO QAM Take morning of surgery With a small sip of water, OTHERWISE NOTHING TO EAT OR DRINK AFTER MIDNIGHT: allopurinol 100 mg tablet 100 mg PO BID metoprolol succinate 25 mg tablet,extended release 24 hr 25 mg PO BID pantoprazole 40 mg tablet,delayed release 40 mg PO QAM Take evening before surgery atorvastatin 20 mg tablet 20 mg PO QPM trazodone 50 mg tablet 50 mg PO HS allopurinol 100 mg tablet 100 mg PO BID metoprolol succinate 25 mg tablet,extended release 24 hr 25 mg PO BID Other Notes If you have any questions please call us at [phone] or [phone] or [phone] or [phone]
--- NOTE | 2023-09-06 11:29 | Anesthesiology Consultation ---
Date of Service September 06, 2023 Assessment & Plan (1) Encounter for pre-operative examination: - Infectious disease screening: Per assessment on 09/06/23: No known infectious disease contacts or current infectious disease symptoms. - Eliquis instructions per surgeon/prescriber - Recent anesthesia experience: * Left fem-pop bypass (09/16/22): Grade view 1, MAC#3, ETT 7.5 at [facility] * EGD (05/29/23): MAC at [facility] Chart Review Chart Review: Acceptable Risk for Surgery and Patient seen in Pre Admission Testing Teaching & Discussion Pre-Anesthesia Teaching/Discussion Notes: Instructed NPO after midnight before surgery,except medications with 15 cc of water. Medication instructions provided according to the PAT guidelines. History Surgery Operation Date: 09/13/23 13:00 Proposed Procedures p Right Popliteal Artery Endovascular Repair - Taurus Chow MD Height/Weight Height: 5 ft 7 in Weight: 95.2 kg Allergies Allergy/AdvReac Type Severity Reaction Status Date / Time indomethacin AdvReac Unknown Anxiety Verified 08/31/23 14:03 Medications Home Medications Medication Instructions Recorded Confirmed Last Taken atorvastatin 20 mg tablet 20 mg PO QPM 04/18/21 08/31/23 05/29/23 multivitamin 1 tab PO QAM 04/18/21 08/31/23 05/28/23 trazodone 50 mg tablet 50 mg PO HS 04/18/21 08/31/23 05/28/23 losartan 50 mg tablet 100 mg PO QAM 07/12/21 08/31/23 05/29/23 allopurinol 100 mg tablet 100 mg PO BID 09/14/22 08/31/23 05/29/23 metoprolol succinate 25 mg 25 mg PO BID 09/14/22 08/31/23 05/29/23 tablet,extended release 24 hr apixaban 5 mg tablet (Eliquis) 5 mg PO BID #60 tabs 09/19/22 08/31/23 05/27/23 20:00 Bifidobacterium infantis 4 mg 4 mg PO QAM 05/23/23 08/31/23 05/28/23 capsule (Align) pantoprazole 40 mg tablet,delayed 40 mg PO QAM 08/31/23 08/31/23 Unknown release Past Medical History Medical History 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 > s/p Left fem-pop bypass 09/16/22 at [facility] History of myocardial infarction "Incidental finding" of possible previous heart attack per patient, no definitive hx or cardiac issues History of prostate cancer (~2005) s/p prostatectomy Hx of gastritis Hx of gout Hyperlipidemia Hypertension Seasonal allergies Exercise / Class Metabolic Activity II 4-5 Yardwork/Stairs/Walk up hill (one FS: No CP, no SOB) Past Family History Family History Brother Family history of colon cancer Other Cancer No family history of adverse response to anesthesia No family history of bleeding disorder Stroke Past Surgical History Surgical History History of hernia surgery History of prostatectomy (~2005) History of shoulder surgery Rx1, Lx1 ("Metal cap to replace joint on both shoulders") Hx of bilateral cataract extraction Hx of colonoscopy with polypectomy Hx of esophagogastroduodenoscopy S/P femoral-popliteal bypass surgery Left fem-pop bypass (09/16/22): Grade view 1, MAC#3, ETT 7.5 at [facility] Past Anesthesia History No Hx of Anesthesia Complications and No Family Hx of Anesthesia Complications History of PONV No Hx of PONV and No Hx of Motion Sickness Social History Smoking Status: Never smoker Do You Dip or Chew Tobacco: No Hx Alcohol Use: Yes Alcohol type: beer alcohol intake frequency: a few times a week Hx Substance Use: No substance use type: does not use Review of Systems Patient denies chest pain, shortness of breath, dyspnea on exertion, fever, chills, cough, wheezing, palpitations. Physical Exam Vital Signs BP 165/96 P 77 TEMP 98.5 SP02 96%RA RESP 16 Physical Full cervical extension range of motion. Full TMJ range of motion. TMD 3 finger breaths Mallampati Score 1 Dentition: missing side Lungs: clear throughout to auscultation Cardiac: regular rate and rhythm, no murmurs noted Spine: normal Carotid arteries: negative bruit Extremities: no LE edema Lab Results Anesthesia Preop Results Results Anesthesia Widget: WBC 7.37 K/ul (4.8-10.8) 09/06/23 Hgb 16.8 g/dl (14.0-18.0) 09/06/23 Hct 48.5 % (42.0-52.0) 09/06/23 Plt 160 K/uL (130-400) 09/06/23 Na 138 mmol/L (136-145) 09/06/23 K 4.0 mmol/L (3.5-5.1) 09/06/23 Cl 105 mmol/L (98-107) 09/06/23 CO2 23 mmol/L (21-32) 09/06/23 BUN 16 mg/dl (6-23) 09/06/23 Creat 1.27 mg/dl (0.6-1.4) 09/06/23 Glucose Level 127 mg/dl (70-99(Fasting)) H 09/06/23 PT 11.4 Seconds (9.0-12.0) 09/06/23 PTT 33 Seconds (21-31) H 09/06/23 INR 1.1 (0.9-1.1) 09/06/23 Blood Type O Negative 09/06/23 Antibody Screen NEGATIVE 09/06/23 Testing Electrocardiogram Date: 09/06/23 NSR at 74bpm. NS STA. Chest X-Ray Date: 09/06/23 FINDINGS: Bilateral shoulder arthroplasties are incidentally noted. Lung volumes are normal. Lungs are clear. There is no pneumothorax or pleural effusion. Mild cardiomegaly is unchanged. Mediastinal contours are normal. There is no evidence for pulmonary edema. IMPRESSION: No acute cardiopulmonary findings. Echocardiogram Date: 09/15/22 EF 55-60%. LV wall motion is normal. Mild cLVH. Borderline LAE. RVSP normal. No significant valvular disease.
--- NOTE | 2023-09-13 09:58 | History & Physical Report ---
Date of Service September 13, 2023 History of Present Illness Primary Care Provider: Martell Cantu Chief Complaint rm#[id number] here for f/u after CTA Subjective I had the pleasure of seeing Bulmaro today for follow-up. As you know he is a 78-year-old gentleman who had a left femoropopliteal bypass secondary to a occluded left popliteal artery aneurysm. 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 He is here today after his CT angio of his right lower extremity Objective Vitals & Measurements HR: 79 (Monitored) BP: 188/102 SpO2: 97% Physical Exam On exam he is awake alert and oriented x 3. He is in no apparent distress. His blood pressure is 188/102. Lungs are clear. Heart has a regular, rate, and rhythm. Abdominal exam is benign. Vascular family radials and carotids +2 bilaterally. Femoral pulses are +2 as well as pedal pulses bilaterally. No ulceration of the lower extremity. He does have a widened pulse in the right popliteal. Diagnostic Results CT angiogram shows a 2.7 cm popliteal artery aneurysm which is bilobed. Assessment/Plan 1. Popliteal artery aneurysm At this point we recommended repair of his popliteal artery aneurysm. He is conducive for an endovascular repair. We went over the risks options and benefits of an endovascular repair. He is agreeable to endovascular repair of his right popliteal aneurysm. The benefits risks and complications are documented in the consent. We will keep you informed as to his results. Thank you very much for letting us participate in the care of this patient. Sincerely, Frantz Chow MD I have personally spent __25___ minutes performing [id number] and [id number] activities on this date of service. Activities Include: _x_ review of the medical record _x_ obtaining a history _x_ physical exam/evaluation __ review labs _x_ review radiology reports _x_ counseling/educating patient/family/caregiver __ discussion/referral to other healthcare professional _x_ documenting care in the medical record _x_ independent interpretation of results cta at [facility] __ communication of results to patient/family/caregiver __ coordination of care Signature Line Electronic Signature on File Taurus Chow MD Author Signature Dt/Tm: 08/31/2023 10:39 AM Salesperson Driver [facility] [address], [address] [place] [address] Electronically Reviewed/Signed by: Taurus Chow MD Cosigner Signature Dt/Tm: 08/31/2023 10:41 AM Salesperson Driver [facility] [address], [address] [place] [address] EJS Result Type: .Outpt Ltr Date of Service: August 31, 2023 10:35 EDT Authorization Status: Modified Subject: Follow Up Visit Author or Import Date: MD Claudine, Taurus Lew on August 31, 2023 10:39 EDT Verified By: MD Chow Eugene J on August 31, 2023 10:39 EDT Encounter info: [id number], [place] [id number], Clinic, 08/31/2023 - 08/31/2023 Allergies Allergy/AdvReac Type Severity Reaction Status Date / Time indomethacin AdvReac Unknown Anxiety Verified 08/31/23 14:03 Home Medications Medication Instructions Recorded Confirmed Type atorvastatin 20 mg tablet 20 mg PO QPM 04/18/21 08/31/23 History multivitamin 1 tab PO QAM 04/18/21 08/31/23 History trazodone 50 mg tablet 50 mg PO HS 04/18/21 08/31/23 History losartan 50 mg tablet 100 mg PO QAM 07/12/21 08/31/23 History allopurinol 100 mg tablet 100 mg PO BID 09/14/22 08/31/23 History metoprolol succinate 25 mg 25 mg PO BID 09/14/22 08/31/23 History tablet,extended release 24 hr apixaban 5 mg tablet (Eliquis) 5 mg PO BID #60 tabs 09/19/22 08/31/23 Rx Bifidobacterium infantis 4 mg 4 mg PO QAM 05/23/23 08/31/23 History capsule (Align) pantoprazole 40 mg tablet,delayed 40 mg PO QAM 08/31/23 08/31/23 History release Past Med/Surg History Problem List (Updated 09/13/23 @ 00:08 by Larissa Henderson) Aneurysm of left popliteal artery Intestinal metaplasia of stomach Hematochezia Lesion of gingiva DVT prophylaxis Acute GI bleeding (Acute) Unstable angina (Acute) ST segment depression (Acute) Palpitations (Acute) DJD of right shoulder History of hypertension Seasonal allergies Heart disease S/P femoral-popliteal bypass surgery Left fem-pop bypass (09/16/22): Grade view 1, MAC#3, ETT 7.5 at [facility] Hyperlipidemia Hypertension Medical History 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 > s/p Left fem-pop bypass 09/16/22 at [facility] History of myocardial infarction "Incidental finding" of possible previous heart attack per patient, no definitive hx or cardiac issues History of prostate cancer (~2005) s/p prostatectomy Hx of gastritis Hx of gout Hyperlipidemia Hypertension Seasonal allergies Surgical History History of hernia surgery History of prostatectomy (~2005) History of shoulder surgery Rx1, Lx1 ("Metal cap to replace joint on both shoulders") Hx of bilateral cataract extraction Hx of colonoscopy with polypectomy Hx of esophagogastroduodenoscopy S/P femoral-popliteal bypass surgery Left fem-pop bypass (09/16/22): Grade view 1, MAC#3, ETT 7.5 at [facility] Family History Brother Family history of colon cancer Other Cancer No family history of adverse response to anesthesia No family history of bleeding disorder Stroke Social History Smoking Status: Never smoker Second Hand Exposure: No; Do You Dip or Chew Tobacco: No; Tobacco Cessation Education Requested by Patient: No Hx Alcohol Use: Yes Alcohol type: beer Hx Substance Use: No Preferred Language: Marshallese Communication Ability: Effective Assembler Trim Required: No Beliefs That Will Affect Care: None Current Living Situation: Alone Other Information That Helps Us Care for You: No Feels Safe at Home: Yes Safety Concerns: Feels Safe At This Time Assistive Devices: None
[2023-09-13] MEDS: LACTATED RINGER'S 1,000 ML BAG IV SCH (12:05)
--- NOTE | 2023-09-13 12:31 | History & Physical Bridge Note ---
Date of Service September 13, 2023 History & Physical Bridge Note I have examined the patient, reviewed the History & Physical and in the interval since the performance of the History & Physical I have noted the following changes of clinical significance: no changes noted
[2023-09-13] MEDS ORDERED: ONDANSETRON INJ 2 MG/ML 2 ML VIAL IV PRN (12:39)
[2023-09-13] MEDS ORDERED: ePHEDrine sulfate 50 MG/ML AMP IV PRN (12:39)
[2023-09-13] MEDS ORDERED: fentaNYL citrate PF 100 MCG/2 ML VIAL IV PRN (12:39)
[2023-09-13] MEDS ORDERED: ATROPINE SULFATE 0.1 MG/ML 10ML SYR IV PRN (12:39)
[2023-09-13] MEDS ORDERED: fentaNYL citrate PF 100 MCG/2 ML VIAL ONE (13:09)
[2023-09-13] MEDS ORDERED: ONDANSETRON INJ 2 MG/ML 2 ML VIAL ONE (13:10)
[2023-09-13] MEDS ORDERED: PROPOFOL IV EMULSION 10 MG/ML 20 ML VIAL IV ONE (13:10)
[2023-09-13] MEDS ORDERED: LIDOCAINE 2% 2 ML VIAL/AMP(20MG/ML) INFIL ONE (13:10)
[2023-09-13] MEDS ORDERED: ROCURONIUM BROMIDE 10 MG/ML 5 ML VIAL IV ONE ×2 (13:10→14:05)
[2023-09-13] MEDS ORDERED: DEXAMETHASONE SOD INJ 4 MG/ML VIAL ONE (13:10)
[2023-09-13] MEDS: CEFAZOLIN 2,000 MG/15 ML SYR IV SCH (13:24)
[2023-09-13] MEDS ORDERED: HEPARIN SOD (PORCINE) 1000 UNIT/ML ONE (14:29)
[2023-09-13] MEDS ORDERED: SUGAMMADEX SODIUM 200 MG/2 ML VIAL IV ONE (15:06)
--- NOTE | 2023-09-13 15:19 | Post Operative Brief Note ---
Immediate Post Op Note v1 Date of Surgery September 13, 2023 Pre & Post Diagnosis Operation Date: 09/13/23 13:05 Pre-Op Diagnosis: Right Popliteal Artery Aneurysm Post-Op Diagnosis: Right Popliteal Artery Aneurysm I identified the patient and participated in the time-out.: Yes Procedure Operation Date: 09/13/23 13:05 Actual Procedures p Endovascular Repair of a Right Popliteal Artery Aneurysm, Ultrasound of bilateral femoral arteries for localization - Taurus Chow MD Surgeon Taurus Chow MD Utility Bag Assembler MD Rika Estimated Blood Loss 30 Findings Consistent with Post-Op Diagnosis Anesthesia Type General Complications none Disposition Accompanied Patient To Recovery: No Disposition: Recovery Room
--- NOTE | 2023-09-13 15:29 | Procedure Note ---
Angiogram Post Procedure Fluoroscopy Time (minutes): 16.5 Radiation (mGy): 174 Contrast: 30 Post Operative Report Pre & Post Diagnosis Operation Date: 09/13/23 13:05 Pre-Op Diagnosis: Right Popliteal Artery Aneurysm Post-Op Diagnosis: Right Popliteal Artery Aneurysm Operation Date: 09/13/23 13:05 Bilateral ultrasound guided access for LINE PRODUCTION COOK, diagnostic aortogram, diagnostic angiogram of RLE, Balloon angioplasty and stent placement in the right popliteal artery and mechanical closure of bilateral groins I identified the patient and participated in the time-out.: Yes Procedure Operation Date: 09/13/23 13:05 Bilateral ultrasound guided access for LINE PRODUCTION COOK, diagnostic aortogram, diagnostic angiogram of RLE, Balloon angioplasty and stent placement in the right popliteal artery and mechanical closure of bilateral groins Surgeon Taurus Chow MD Technician Plant And Maintenance MD Rika Estimated Blood Loss 30 Findings See Below Patent right popliteal stent with bilateral signals in both feet Fluids see anesthesia record Specimens none Drains none Anesthesia Type General Complications none Disposition Accompanied Patient To Recovery: Yes Disposition: Recovery Room Indications right popliteal artery aneurysm Description of Procedure The patient was brought to the operating room and placed supine on the operating table. Anesthesia placed monitoring devices including EKG and pulse oximetry and general anesthesia was induced and ET tube was placed. A surgical timeout was performed which identified the patient, procedure, laterality, allergies, and any needed equipment. The bilateral groins were prepped and draped sterilely. Under ultrasound guidance the left common femoral artery was identified and was accessed using a 21-gauge needle and a microwire was inserted then a 11 blade was utilized to make a skin miquel over the needle and the needle was exchanged over the microwire for the micro sheath. Using the micro sheath a angiogram was obtained which demonstrated that the access point was over the femoral head. Then the microwire and inner dilator were removed and exchanged for a angled Glidewire. Then a combination of angled Glidewire and rim catheter as well biswas's hook were utilized to attempt to cross the aortic bifurcation. While the aortic bifurcation can be cannulated and the wire placed into the right iliac system the iliac system had such tortuosity that the wire would not track down to the right femoral from the contralateral access. Therefore the right common femoral artery under ultrasound guidance was accessed using a 18-gauge needle and a J-wire over the needle a 11 blade was utilized to make a skin miquel and the needle was exchanged for a 5 [place] sheath. Through the 5 [place] sheath an angled Glidewire was placed into the infrarenal aorta and the left groin through the 8 [place] sheath a snare was inserted up into the infrarenal aorta and the wire from the right groin was brought to the level through the left groin access such that a Glidewire was through both femoral access but over the aortic bifurcation. Over the wire on the left side of the patient the short 8 [place] sheath was exchanged for an 8Fr 45cm destination sheath and the up and over a wire was removed. Through the 8 [place] destination sheath a V18 wire was placed into the below-knee popliteal and angiography was performed which demonstrated the popliteal aneurysm. A 8 x 15 Viabahn stent was placed in the distal SFA through to the below-knee popliteal artery making sure to be well away from the origin of the AT artery. A 9 x 20 Stanford balloon was utilized to correct some residual stenosis of the distal portion of the stent as well as to balloon angioplasty to the the proximal portion of the stent. Angiogram through the 8 [place] sheath demonstrated patency of the popliteal stent without any residual stenosis or dissection however flow was still sluggish in nature. A quick cross catheter was inserted over the V18 wire and the V18 wire was removed and through the quick cross catheter angiograms of the right lower extremity were performed which demonstrated patency of the AT and PT arteries all the way to the foot. The V18 wire was reinserted and the quick cross and the 18 were removed. An angled Glidewire was placed into the 8 [place] sheath and the 8 [place] sheath was pulled back over the aortic bifurcation. Then a Perclose device was placed to close the left 8 [place] sheath hole and the groin was hemostatic after deploying the device. Then the right 5 [place] sheath was excha nged for a Star closure device which was deployed to obtain hemostasis. Perclot hemostatic agent was placed in both groins and additional pressure was held in the right groin for 15 minutes to obtain hemostasis. The patient had signals in his bilateral lower extremities. And the patient was awoken from anesthesia. The patient tolerated the procedure well and surgical counts were correct x 2 Dr. Chow was present and scrubbed for the entire procedure. I attest to the content of the Intraoperative Record and any orders documented therein. Any exceptions are noted below.
[2023-09-13] MEDS: VISIPAQUE IV PRN (15:59)
--- NOTE | 2023-09-13 16:25 | Anesthesiology Progress Note ---
Date of Service September 13, 2023 Anesthesia Post Procedure Vital Signs Vital Signs: Temp Pulse Resp BP BP Pulse Ox O2 Del Method 09/13/23 16:20 81 20 110/78 92 Room Air 09/13/23 16:10 86 22 114/74 94 Room Air 09/13/23 16:00 76 19 101/66 97 Room Air 09/13/23 15:50 78 15 111/70 97 Oxymask 09/13/23 15:45 74 17 103/60 97 Oxymask 09/13/23 15:39 36.2 C L 76 15 87/62 L 96 Oxymask 09/13/23 11:55 36.9 C 85 20 166/115 H 174/109 H 96 Room Air O2 Flow Rate 09/13/23 16:20 0 09/13/23 16:10 0 09/13/23 16:00 0 09/13/23 15:50 4 09/13/23 15:45 4 09/13/23 15:39 6 09/13/23 11:55 Transfer of Care Handoff Completed per policy Notes Mental Status: alert / awake / arousable Patient Amnestic to Procedure: Yes Nausea / Vomiting: adequately controlled Pain: adequately controlled Airway Patency, RR, SpO2: stable & adequate BP & HR: stable & adequate Hydration State: stable & adequate Anesthetic Complications: no major complications apparent
[2023-09-13] MEDS: SODIUM CHLORIDE 0.9% 1,000 ML IV SCH (17:53)
[2023-09-13] MEDS: oxyCODONE/ACETAMINOPHEN 5mg/325mg TAB PO PRN (18:36)
[2023-09-13] MEDS: allopurinoL 100 MG TAB PO SCH (20:22)
[2023-09-13] MEDS: traZODone HCL 50 MG TAB PO SCH (20:22)
[2023-09-13] MEDS: CLOPIDOGREL BISULFATE 300 MG TAB PO STA (20:22)
[2023-09-13] MEDS: METOPROLOL SUCC 25MG EXT REL TAB PO SCH (20:22)
[2023-09-13] MEDS: ATORVASTATIN 20 MG TAB PO SCH (20:22)
[2023-09-14] MEDS: ADVANCED PROBIOTIC 625 MG CAPSULE PO SCH (09:24)
[2023-09-14] MEDS: CLOPIDOGREL BISULFATE 75 MG TAB PO SCH (09:24)
[2023-09-14] MEDS: LOSARTAN POTASSIUM 50 MG TAB PO SCH (09:25)
[2023-09-14] MEDS: PANTOprazole 40 MG TAB PO SCH (09:26)
[2023-09-14] MEDS: MULTIVITAMIN TAB PO SCH (09:26)
--- NOTE | 2023-09-14 15:36 | Surgery Progress Note ---
Date of Service September 14, 2023 Assessment & Plan (1) Aneurysm of left popliteal artery: Plan: Good distal pulses. Doing well post endovascular repair of right popliteal artery aneurysm. (2) Hypertension: Plan: Patient was normotensive until now. He was hypertensive pre op. He is due for his metoprolol this pm. Being he says he may be getting a migraine will keep him overnight to monitor his BP Admission and Anticipated Discharge Date Admission Date: September 13, 2023 Subjective No complaints of leg pain. He claims he may be getting a migraine. Physical Exam Constitutional: WD/WN, vitals as above Respiratory: normal respiratory effort; no respiratory distress Cardiovascular: Rate/Rhythm: regular rate Vessels: normal peripheral pulses Skin: + incision (puncture sites clean) Neurologic: CN's II-XI intact bilaterally and moves all extremities Psychiatric: Orientation: alert and oriented x 3 Results & Data Vital Signs (Past 12 Hours) Vital Signs Temp Pulse Resp BP Pulse Ox O2 Del Method 09/14/23 14:53 185/100 H 09/14/23 14:03 36.7 C 76 18 178/107 H 94 Room Air 09/14/23 12:38 36.6 C 70 16 175/117 H 97 Room Air 09/14/23 09:27 Room Air 09/14/23 07:09 36.7 C 65 18 153/94 H 96 Room Air 09/14/23 03:49 36.8 C 76 12 131/84 94 Room Air
[2023-09-14] MEDS: APIXABAN 5 MG TABLET PO SCH (20:34)
[2023-09-14] MEDS: ZOLPIDEM TARTRATE 5 MG TAB PO PRN (21:40)
--- NOTE | 2023-09-15 09:54 | Surgery Progress Note ---
Date of Service September 15, 2023 Assessment & Plan (1) Aneurysm of left popliteal artery: Plan: Good distal pulses. (2) Hypertension: Plan: Patient BP better this am. He does take it at home. Will discharge today. If he should become hypertensive again he will call his PCP Admission and Anticipated Discharge Date Admission Date: September 13, 2023 Subjective No complaints of leg pain. He feels much better today. BP better Physical Exam Constitutional: WD/WN, vitals as above Respiratory: normal respiratory effort; no respiratory distress Cardiovascular: Rate/Rhythm: regular rate Vessels: normal peripheral pulses Skin: + incision (puncture sites clean) Neurologic: CN's II-XI intact bilaterally and moves all extremities Psychiatric: Orientation: alert and oriented x 3 Results & Data Vital Signs (Past 12 Hours) Vital Signs Temp Pulse Resp BP Pulse Ox O2 Del Method 09/15/23 07:36 36.6 C 88 17 140/80 95 Room Air 09/15/23 07:20 Room Air
--- NOTE | 2023-09-15 10:02 | Discharge Summary ---
Date of Service September 15, 2023 Admission HPI Per Admitting Provider Chief Complaint rm#[id number] here for f/u after CTA Subjective I had the pleasure of seeing Bulmaro today for follow-up. As you know he is a 78-year-old gentleman who had a left femoropopliteal bypass secondary to a oc cluded left popliteal artery aneurysm. 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 He is here today after his CT angio of his right lower extremity Objective Vitals & Measurements HR: 79 (Monitored) BP: 188/102 SpO2: 97% Physical Exam On exam he is awake alert and oriented x 3. He is in no apparent distress. His blood pressure is 188/102. Lungs are clear. Heart has a regular, rate, and rhythm. Abdominal exam is benign. Vascular family radials and carotids +2 bilaterally. Femoral pulses are +2 as well as pedal pulses bilaterally. No ulceration of the lower extremity. He does have a widened pulse in the right popliteal. Diagnostic Results CT angiogram shows a 2.7 cm popliteal artery aneurysm which is bilobed. Assessment/Plan 1. Popliteal artery aneurysm At this point we recommended repair of his popliteal artery aneurysm. He is conducive for an endovascular repair. We went over the risks options and benefits of an endovascular repair. He is agreeable to endovascular repair of his right popliteal aneurysm. The benefits risks and complications are documented in the consent. We will keep you informed as to his results. Thank you very much for letting us participate in the care of this patient. Sincerely, Frantz Chow MD I have personally spent __25___ minutes performing [id number] and drj-[id number] activities on this date of service. Activities Include: _x_ review of the medical record _x_ obtaining a history _x_ physical exam/evaluation __ review labs _x_ review radiology reports _x_ counseling/educating patient/family/caregiver __ discussion/referral to other healthcare professional _x_ documenting care in the medical record _x_ independent interpretation of results cta at [facility] __ communication of results to patient/family/caregiver __ coordination of care Signature Line Electronic Signature on File Taurus Chow MD Author Signature Dt/Tm: 08/31/2023 10:39 AM Press Feeder [facility] [address], [address] [place] [address] Electronically Reviewed/Signed by: Taurus Chow MD Cosigner Signature Dt/Tm: 08/31/2023 10:41 AM Press Feeder [facility] [address], [address] [place] [address] EJS Result Type: .Outpt Ltr Date of Service: August 31, 2023 10:35 EDT Authorization Status: Modified Subject: Follow Up Visit Author or Import Date: MD Chow Eugene J on August 31, 2023 10:39 EDT Verified By: MD Chow Eugene J on August 31, 2023 10:39 EDT Encounter info: [id number], [place] [address], Clinic, 08/31/2023 - 08/31/2023 Admission Exam Per Admitting Provider On exam he is awake alert and oriented x 3. He is in no apparent distress. His blood pressure is 188/102. Lungs are clear. Heart has a regular, rate, and rhythm. Abdominal exam is benign. Vascular family radials and carotids +2 bilaterally. Femoral pulses are +2 as well as pedal pulses bilaterally. No ulceration of the lower extremity. He does have a widened pulse in the right popliteal. Principal Diagnosis Right popliteal artery aneurysm Discharge Exam Constitutional WD/WN, vitals as above Respiratory normal respiratory effort; no respiratory distress Cardiovascular Rate/Rhythm: regular rate Vessels: normal peripheral pulses Skin + incision (puncture sites clean) Neurologic CN's II-XI intact bilaterally and moves all extremities Psychiatric Orientation: alert and oriented x 3 Discharge Data Allergies Allergy/AdvReac Type Severity Reaction Status Date / Time indomethacin AdvReac Unknown Anxiety Verified 09/13/23 11:48 Procedures Performed Operation Date: 09/13/23 13:05 Actual Procedures p Endovascular Repair of a Right Popliteal Artery Aneurysm, Percutaneous Transluminal Angioplasty of Right Popliteal Artery, Ultrasound Localization of Bilateral Femoral Arteries, Mechanical Closure Bilateral Femoral Artery(Bilateral) - Taurus Chow MD Ordered Studies 09/13/23 07:12 EV angio LE RT Routine US EV guide vascular access Routine Hospital Course (1) Aneurysm of left popliteal artery: Good distal pulses. (2) Hypertension: Patient BP better this am. He does take it at home. Will discharge today. If he should become hypertensive again he will call his PCP Total Time Total Time Spent Total Time Spent (In Minutes): 0 Discharge Plan Discharge Items Patient Disposition: Home - Self-Care Reason For Visit: RIGHT POPLITEAL ARTERY ANEURYSM Discharge Diagnosis: Right poplital artery aneurysm Activity: Per Instructions section Non-emergency contact: Surgeon Call non-emergency contact if: your temperature is above 101.5, your wound has increased redness, your wound has increased drainage and your wound pain has increased Follow-up/Referrals: Martell Cantu [Primary Care Provider] - Taurus Chow MD [Physician] - 10/02/23 2:30 pm Diet: Heart Healthy Addtl Attending Provider Instructions: SPECIAL CARE INSTRUCTIONS: Medications: * Continue to take your medications as directed. If you have been given a prescription for Plavix, please fill it immediately and take as directed. Incision Care: * Your puncture site may have some bruising and minor swelling for about one week. * You will have a small dressing covering your puncture site. You may remove the dressing after 24 hours and shower. You may let the warm soapy water run over it, but be sure to dry the puncture site well and keep it dry. * DO NOT IMMERSE THE INCISION IN A TUB/POOL/etc. UNTIL HEALED. * Puncture sites should be kept covered with a band-aid until it begins to heal. Restrictions: * Depending on whether you leg or arm was punctured to access the arteries, you will be required to lay flat, hold your arm still, or both, for about 4 hours after the procedure to prevent bleeding. * Limit your activity for the first 48 hours. You may walk and go up and down steps. Avoid excessive bending or movement at the puncture site. Possible Complications: * Excessive Swelling - after blood flow is improved you may notice increased swelling in the lower legs. This is a normal response. This usually depends on the amount of blockages in the leg, how long they have been there prior to your procedure and how much blood flow was restored. Elevating your legs will help to improve this. Please notify our office ([phone]) if the swelling does not go away after lying in bed overnight. * Infection/Drainage/Bleeding - Drainage or bleeding from the puncture site should be minimal. If you have excessive bleeding or drainage, call our office ([phone]) right away. * Pain - You may experience some mild pain or soreness at your puncture site. If your pain does not improve, please contact our office ([phone]). Call your doctor and seek emergent treatment if you develop: * Temperature above 101 degrees * Any fever or chills * Any redness or purulent drainage from the puncture site * Any new dusky/blue colored toes or feet with coolness or sharp or aching pain. SKIN IRRITATION: * You may experience some redness and/or swelling in the area where radiation was administered. If any skin irritation occurs, please contact your family physician. FOLLOW UP VISIT: Keep any scheduled doctor appointments. Call [phone] to schedule a follow up appointment if one not already scheduled. If your BP becomes elevated, notify your PCP Pending Studies at Discharge: No Stand-Alone Forms: My [facility] [place], Smoking Cessation Medications and DC Order Prescriptions: New clopidogrel 75 mg Tablet 75 mg PO QAM Qty: 30 3RF oxycodone-acetaminophen 5-325 mg Tablet 1 - 2 tab PO Q4H PRN (Reason: pain) Qty: 10 0RF Continued losartan 50 mg tablet 100 mg PO QAM allopurinol 100 mg tablet 100 mg PO BID metoprolol succinate 25 mg tablet extended release 24 hr 25 mg PO BID Eliquis 5 mg Tablet 5 mg PO BID Qty: 60 11RF Align 4 mg Capsule 4 mg PO QAM multivitamin Tablet 1 tab PO QAM atorvastatin 20 mg tablet 20 mg PO QPM trazodone 50 mg tablet 50 mg PO HS pantoprazole 40 mg tablet,delayed release (DR/EC) 40 mg PO QAM Discharge Orders: Discharge Order (Routine); Ordered 09/15/23 Ordered By: Taurus Chow Admission Data Admit Date/Time: 09/13/23 12:44 Attending Provider: Taurus Chow Admit Provider: Taurus Chow Primary Care Provider: Martell Cantu
== END 2023-09-15 11:19 | disposition home or self-care (01) | DRG 254 ==
LOC: ASU 11:16 → PACUINP 12:44 → 3N 17:47
DX: J30.2 Other seasonal allergic rhinitis; Z85.46 Personal history of malignant neoplasm of prostate; I72.4 Aneurysm of artery of lower extremity; I10 Essential (primary) hypertension; Z88.8 Allergy status to other drugs, medicaments and biological substances; E78.5 Hyperlipidemia, unspecified; I25.2 Old myocardial infarction; Z79.899 Other long term (current) drug therapy

== ENCOUNTER 2023-09-27 12:45 | Observation (INO) ==
[2023-09-27 13:56] LABS: Basophils # (auto) 0.04 K/uL (0.00-0.20); Basophils % (auto) 0.6 %; Eosinophils # (auto) 0.12 K/uL (0.00-0.50); Eosinophils % (auto) 1.9 %; Hemoglobin 16.4 g/dl (14.0-18.0); Immature Granulocytes # (auto) 0.03 K/uL (0.01-0.20); Immature Granulocytes % (auto) 0.5 %; Lymphocytes # (auto) 1.38 K/uL (1.20-3.40); Lymphocytes % (auto) 22.4 %; Mean Corpuscular Hemoglobin 33.2 pg (25.0-34.0); Mean Corpuscular Hgb Conc 34.9 g/dL (32.0-36.0); Mean Corpuscular Volume 95.1 fL (80.0-100.0); Mean Platelet Volume 10.3 fL (9.4-12.4); Monocytes # (auto) 0.53 K/uL (0.11-0.59); Monocytes % (auto) 8.6 %; Neutrophils # (auto) 4.07 K/uL (1.40-6.50); Platelet Count 185 K/uL (130-400); RDW Coefficient of Variation 13.4 % (11.5-14.5); RDW Standard Deviation 46.9 fL (36.4-46.3); Red Blood Count 4.94 M/uL (4.70-6.10); White Blood Count 6.17 K/ul (4.8-10.8)
--- NOTE | 2023-09-27 15:20 | XRay Report ---
XR chest 1V portable CLINICAL HISTORY: Chest pain, nonspecific TECHNIQUE: Single frontal radiograph of the chest was obtained. Comparison: Comparison is made to chest radiograph 09/06/2023 FINDINGS: Bilateral shoulder arthroplasties are seen. The cardiomediastinal silhouette is normal. The lungs are clear. No evidence of pleural effusion or pneumothorax. IMPRESSION: No acute chest disease. ACT 112: Negative or not required by law. Electronically signed by: Elio Langford M.D. 09/27/2023 3:18 PM
[2023-09-27] MEDS: SODIUM CHLORIDE 0.9% 500 ML IV ONE (15:31)
--- NOTE | 2023-09-27 15:38 | Emergency Department Note ---
Impression & Plan HTN (hypertension), Dizziness, Elevated glucose ED Provider Note NAME: AMBERLY CUENCA AGE: 78 SEX: M : 1945 ARRIVES VIA: Walk-In INFORMANT: Patient ED PROVIDER(S): Sampson Smith DO CHIEF COMPLAINT: htn and weak HPI: Patient is a 78-year-old male who presents to ER with a past medical history of hypertension, hyperlipidemia and heart disease who presents to the ER she had right popliteal stent placed 2 weeks ago. Since then he has been feeling tired and rundown. He denies any new chest pain or shortness of breath. No belly pain, nausea, vomiting, or diarrhea. He notes when he bends over he gets lightheaded which has been occurring for quite some time. This is not new. He notes that he cut the grass yesterday and was actually feeling better but he close PCP today as he had elevated blood pressure and was referred in. ADDITIONAL HISTORY OBTAINED: Per HPI Chronic Medical/Social Conditions Affecting Care: Per HPI PAST MEDICAL HISTORY:See Below PAST SURGICAL HISTORY:See Below FAMILY HISTORY:See Below SOCIAL HISTORY:See Below HOME MEDICATIONS:See Below ALLERGIES:See Below VITALS:See Below PHYSICAL EXAMINATION: GENERAL: Sitting up in bed, alert, well appearing, well nourished, no distress, non-toxic EYE EXAM: normal conjunctiva. PERRL and EOM's intact. OROPHARYNX: no exudate, no erythema, lips, buccal mucosa, and tongue normal and mucous membranes are moist NECK: supple, no nuchal rigidity, no adenopathy, non-tender LUNGS: Clear to auscultation. Normal chest wall mechanics HEART: no murmurs, S1 normal and S2 normal ABDOMEN: abdomen soft, non-tender, normo-active bowel sounds, no masses, no rebound or guarding. BACK: Back is symmetrical on inspection and there is no deformity, no midline tenderness, no CVA tenderness. SKIN: no rashes and no bruising UPPER EXTREMITIES: upper extremities are grossly normal. LOWER EXTREMITIES: No pitting edema. NEURO EXAM: Normal sensorium, cranial nerves II-XII intact, normal speech, no weakness of arms, no weakness of legs. No drift. Finger to nose intact. Gross sensation intact. MEDICAL DECISION MAKING: Patient is a 78-year-old male who presents ER for above-stated complaint. IV was established blood work was obtained. Labs show no significant leukocytosis or anemia. INR unremarkable. BMP with slightly elevated glucose at 109. LFTs bilirubin and troponin was negative. Blood pressures were significantly elevated in the 200s to 190s. He was given a dose of labetalol. Systolic pressures trended down to the 160s. He was discussed with the hospitalist for further evaluation management treatment. His EKG had ST wave changes but I do not believe these are significantly different from his previous. Consults/Care Managements Discussions: Per [facility] Triage Nursing notes reviewed. Limited review of prior medical records performed Vital Signs: reviewed and remarkable for HTN Differential diagnosis: Differential diagnosis includes etiologies such as benign positional vertigo, dehydration, hypovolemia, anemia, tumor, infection, hypoglycemia, electrolyte abnormalities, cardiac sources, intracerebral event, toxicologic, neurological, as well as others were entertained. ER treatment provided: See below Diagnostics interpreted by me include EKG and cardiac monitoring as listed below: -Cardiac Monitoring: An order was placed for continuous cardiac monitoring. The monitor shows a rate of 89 with sinus rhythm. -ECG: Sinus rhythm rate 83 Normal axis No PVCs Nonspecific ST wave changes in the inferior leads No significant change from previous -Laboratory studies:Interpreted by me as stated above in MDM and shown below. Imaging studies: Xrays: As interpreted by me: Portable AP upright 1 view of the chest shows no focal infiltrate. CTs show: none Procedures:none Critical Care: None Past Med/Surg History Problem List (Updated 09/27/23 @ 20:13 by Sampson Smith DO) Elevated glucose (Acute) Dizziness (Acute) HTN (hypertension) (Acute) Hypertension Aneurysm of left popliteal artery Intestinal metaplasia of stomach Hematochezia Lesion of gingiva DVT prophylaxis Acute GI bleeding (Acute) Unstable angina (Acute) ST segment depression (Acute) Palpitations (Acute) DJD of right shoulder History of hypertension Seasonal allergies Heart disease S/P femoral-popliteal bypass surgery Left fem-pop bypass (09/16/22): Grade view 1, MAC#3, ETT 7.5 at [facility] Hyperlipidemia Hypertension Medical History 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 > s/p Left fem-pop bypass 09/16/22 at [facility] History of myocardial infarction "Incidental finding" of possible previous heart attack per patient, no definitive hx or cardiac issues History of prostate cancer (~2005) s/p prostatectomy Hx of gastritis Hx of gout Hyperlipidemia Hypertension Seasonal allergies Surgical History History of hernia surgery History of prostatectomy (~2005) History of shoulder surgery Rx1, Lx1 ("Metal cap to replace joint on both shoulders") Hx of bilateral cataract extraction Hx of colonoscopy with polypectomy Hx of esophagogastroduodenoscopy S/P femoral-popliteal bypass surgery Left fem-pop bypass (09/16/22): Grade view 1, MAC#3, ETT 7.5 at [facility] Family History Brother Family history of colon cancer Other Cancer No family history of adverse response to anesthesia No family history of bleeding disorder Stroke Social History Smoking Status: Never smoker Second Hand Exposure: No; Do You Dip or Chew Tobacco: No; Hx Alcohol Use: Yes Alcohol type: beer Hx Substance Use: No Preferred Language: Cook Islander Communication Ability: Effective Java Lead Engineer Required: No Beliefs That Will Affect Care: None Current Living Situation: Alone Feels Safe at Home: Yes Assistive Devices: Cane Allergies Allergies Allergy/AdvReac Type Severity Reaction Status Date / Time indomethacin AdvReac Unknown Anxiety Verified 09/27/23 17:43 Home Meds Home Medications Medication Instructions Recorded Confirmed atorvastatin 20 mg tablet 20 mg PO QPM 04/18/21 09/27/23 multivitamin 1 tab PO QAM 04/18/21 09/27/23 trazodone 50 mg tablet 50 mg PO HS 04/18/21 09/27/23 allopurinol 100 mg tablet 100 mg PO BID 09/14/22 09/27/23 metoprolol succinate 25 mg 25 mg PO BID 09/14/22 09/27/23 tablet,extended release 24 hr Bifidobacterium infantis 4 mg 4 mg PO QAM 05/23/23 09/27/23 capsule (Align) pantoprazole 40 mg tablet,delayed 40 mg PO QAM 08/31/23 09/27/23 release losartan 100 mg tablet 100 mg PO QAM 09/27/23 09/27/23 Previous Rx's Medication Instructions Recorded apixaban 5 mg tablet (Eliquis) 5 mg PO BID #60 tabs 09/19/22 clopidogrel 75 mg tablet 75 mg PO QAM #30 tabs 09/15/23 oxycodone-acetaminophen 5 mg-325 1 - 2 tab PO Q4H PRN pain #10 tabs 09/15/23 mg tablet Results & Data (ED) Vital Signs Vital Signs - 24 hr 09/27/23 12:53 09/27/23 15:34 09/27/23 15:45 Temperature 36.2 C L Temperature Source Temporal Artery Scan Pulse Rate 88 77 75 Pulse Rate [Apical] Pulse Rate from SpO2 Sensor 78 Respiratory Rate 19 20 Respiratory Effort / Characteristics Respiratory Depth Respiratory Pattern Blood Pressure 174/103 H Blood Pressure [Right Arm] Blood Pressure Mean 126 Blood Pressure Mean [Right Arm] Blood Pressure Position [Right Arm] Pulse Oximetry 97 99 Oxygen Delivery Method Room Air Sepsis Recent Fever Within 48 Hours No Sepsis New/Unexplained Change in Mental Status N/A Sepsis Action Taken by Nursing No Action Required 09/27/23 16:00 09/27/23 16:00 09/27/23 16:30 Temperature Temperature Source Pulse Rate 76 75 Pulse Rate [Apical] Pulse Rate from SpO2 Sensor 76 76 Respiratory Rate 20 18 Respiratory Effort / Characteristics Respiratory Depth Respiratory Pattern Blood Pressure 198/111 H Blood Pressure [Right Arm] Blood Pressure Mean 128 Blood Pressure Mean [Right Arm] Blood Pressure Position [Right Arm] Pulse Oximetry 98 99 Oxygen Delivery Method Sepsis Recent Fever Within 48 Hours Sepsis New/Unexplained Change in Mental Status Sepsis Action Taken by Nursing 09/27/23 16:30 09/27/23 16:48 09/27/23 16:48 Temperature Temperature Source Pulse Rate 81 Pulse Rate [Apical] 77 Pulse Rate from SpO2 Sensor 81 Respiratory Rate 18 16 Respiratory Effort / Characteristics Non-Labored Spontaneous Respiratory Depth Normal Respiratory Pattern Regular Blood Pressure 194/122 H Blood Pressure [Right Arm] 191/112 H Blood Pressure Mean 150 Blood Pressure Mean [Right Arm] 138 Blood Pressure Position [Right Arm] Lying Pulse Oximetry 99 96 Oxygen Delivery Method Room Air Sepsis Recent Fever Within 48 Hours Sepsis New/Unexplained Change in Mental Status Sepsis Action Taken by Nursing 09/27/23 16:49 09/27/23 16:55 09/27/23 17:00 Temperature Temperature Source Pulse Rate 81 72 77 Pulse Rate [Apical] Pulse Rate from SpO2 Sensor 75 77 Respiratory Rate 17 18 Respiratory Effort / Characteristics Respiratory Depth Respiratory Pattern Blood Pressure 191/112 H Blood Pressure [Right Arm] Blood Pressure Mean Blood Pressure Mean [Right Arm] Blood Pressure Position [Right Arm] Pulse Oximetry 99 99 Oxygen Delivery Method Sepsis Recent Fever Within 48 Hours Sepsis New/Unexplained Change in Mental Status Sepsis Action Taken by Nursing 09/27/23 17:00 09/27/23 17:05 09/27/23 17:05 Temperature Temperature Source Pulse Rate 75 Pulse Rate [Apical] Pulse Rate from SpO2 Sensor 76 Respiratory Rate 16 Respiratory Effort / Characteristics Respiratory Depth Respiratory Pattern Blood Pressure 198/131 H 198/112 H Blood Pressure [Right Arm] Blood Pressure Mean 154 161 Blood Pressure Mean [Right Arm] Blood Pressure Position [Right Arm] Pulse Oximetry 99 Oxygen Delivery Method Sepsis Recent Fever Within 48 Hours Sepsis New/Unexplained Change in Mental Status Sepsis Action Taken by Nursing 09/27/23 17:10 09/27/23 17:15 09/27/23 17:15 Temperature Temperature Source Pulse Rate 76 71 Pulse Rate [Apical] Pulse Rate from SpO2 Sensor 74 70 Respiratory Rate 20 19 Respiratory Effort / Characteristics Respiratory Depth Respiratory Pattern Blood Pressure 187/123 H Blood Pressure [Right Arm] Blood Pressure Mean 143 Blood Pressure Mean [Right Arm] Blood Pressure Position [Right Arm] Pulse Oximetry 100 99 Oxygen Delivery Method Sepsis Recent Fever Within 48 Hours Sepsis New/Unexplained Change in Mental Status Sepsis Action Taken by Nursing 09/27/23 17:15 09/27/23 17:20 09/27/23 17:20 Temperature Temperature Source Pulse Rate 74 Pulse Rate [Apical] Pulse Rate from SpO2 Sensor 74 Respiratory Rate 20 Respiratory Effort / Characteristics Respiratory Depth Respiratory Pattern Blood Pressure 167/108 H 174/110 H Blood Pressure [Right Arm] Blood Pressure Mean 127 131 Blood Pressure Mean [Right Arm] Blood Pressure Position [Right Arm] Pulse Oximetry 99 Oxygen Delivery Method Sepsis Recent Fever Within 48 Hours Sepsis New/Unexplained Change in Mental Status Sepsis Action Taken by Nursing 09/27/23 17:25 09/27/23 17:25 09/27/23 17:30 Temperature Temperature Source Pulse Rate 75 74 Pulse Rate [Apical] Pulse Rate from SpO2 Sensor 74 74 Respiratory Rate 19 16 Respiratory Effort / Characteristics Respiratory Depth Respiratory Pattern Blood Pressure 165/109 H Blood Pressure [Right Arm] Blood Pressure Mean 129 Blood Pressure Mean [Right Arm] Blood Pressure Position [Right Arm] Pulse Oximetry 99 98 Oxygen Delivery Method Sepsis Recent Fever Within 48 Hours Sepsis New/Unexplained Change in Mental Status Sepsis Action Taken by Nursing 09/27/23 17:30 09/27/23 17:35 09/27/23 17:35 Temperature Temperature Source Pulse Rate 76 Pulse Rate [Apical] Pulse Rate from SpO2 Sensor 76 Respiratory Rate 20 Respiratory Effort / Characteristics Respiratory Depth Respiratory Pattern Blood Pressure 168/105 H 190/123 H Blood Pressure [Right Arm] Blood Pressure Mean 119 171 Blood Pressure Mean [Right Arm] Blood Pressure Position [Right Arm] Pulse Oximetry 99 Oxygen Delivery Method Sepsis Recent Fever Within 48 Hours Sepsis New/Unexplained Change in Mental Status Sepsis Action Taken by Nursing 09/27/23 17:40 09/27/23 17:40 09/27/23 17:45 Temperature Temperature Source Pulse Rate 69 68 Pulse Rate [Apical] Pulse Rate from SpO2 Sensor 68 70 Respiratory Rate 18 18 Respiratory Effort / Characteristics Respiratory Depth Respiratory Pattern Blood Pressure 171/119 H Blood Pressure [Right Arm] Blood Pressure Mean 143 Blood Pressure Mean [Right Arm] Blood Pressure Position [Right Arm] Pulse Oximetry 99 99 Oxygen Delivery Method Sepsis Recent Fever Within 48 Hours Sepsis New/Unexplained Change in Mental Status Sepsis Action Taken by Nursing 09/27/23 17:45 09/27/23 17:50 09/27/23 17:50 Temperature Temperature Source Pulse Rate 74 Pulse Rate [Apical] Pulse Rate from SpO2 Sensor 75 Respiratory Rate 19 Respiratory Effort / Characteristics Respiratory Depth Respiratory Pattern Blood Pressure 159/109 H 176/118 H Blood Pressure [Right Arm] Blood Pressure Mean 126 138 Blood Pressure Mean [Right Arm] Blood Pressure Position [Right Arm] Pulse Oximetry 99 Oxygen Delivery Method Sepsis Recent Fever Within 48 Hours Sepsis New/Unexplained Change in Mental Status Sepsis Action Taken by Nursing 09/27/23 18:00 09/27/23 18:00 09/27/23 18:47 Temperature Temperature Source Pulse Rate 78 Pulse Rate [Apical] Pulse Rate from SpO2 Sensor 78 Respiratory Rate 18 Respiratory Effort / Characteristics Respiratory Depth Respiratory Pattern Blood Pressure 169/113 H 151/110 H Blood Pressure [Right Arm] Blood Pressure Mean 135 131 Blood Pressure Mean [Right Arm] Blood Pressure Position [Right Arm] Pulse Oximetry 99 Oxygen Delivery Method Sepsis Recent Fever Within 48 Hours Sepsis New/Unexplained Change in Mental Status Sepsis Action Taken by Nursing 09/27/23 18:47 09/27/23 18:49 09/27/23 19:00 Temperature Temperature Source Pulse Rate 78 74 Pulse Rate [Apical] Pulse Rate from SpO2 Sensor 81 74 Respiratory Rate 20 24 Respiratory Effort / Characteristics Respiratory Depth Respiratory Pattern Blood Pressure 154/103 H Blood Pressure [Right Arm] Blood Pressure Mean 120 Blood Pressure Mean [Right Arm] Blood Pressure Position [Right Arm] Pulse Oximetry 98 99 99 Oxygen Delivery Method Room Air Room Air Sepsis Recent Fever Within 48 Hours Sepsis New/Unexplained Change in Mental Status Sepsis Action Taken by Nursing 09/27/23 19:15 09/27/23 19:30 09/27/23 19:36 Temperature Temperature Source Pulse Rate 73 71 77 Pulse Rate [Apical] Pulse Rate from SpO2 Sensor 72 71 Respiratory Rate 22 20 Respiratory Effort / Characteristics Respiratory Depth Respiratory Pattern Blood Pressure 139/101 H 162/101 H Blood Pressure [Right Arm] Blood Pressure Mean 113 121 Blood Pressure Mean [Right Arm] Blood Pressure Position [Right Arm] Pulse Oximetry 99 98 Oxygen Delivery Method Room Air Room Air Sepsis Recent Fever Within 48 Hours Sepsis New/Unexplained Change in Mental Status Sepsis Action Taken by Nursing 09/27/23 19:45 09/27/23 19:50 Temperature Temperature Source Pulse Rate 71 71 Pulse Rate [Apical] Pulse Rate from SpO2 Sensor 72 Respiratory Rate 19 Respiratory Effort / Characteristics Respiratory Depth Respiratory Pattern Blood Pressure 161/110 H 161/110 H Blood Pressure [Right Arm] Blood Pressure Mean 127 Blood Pressure Mean [Right Arm] Blood Pressure Position [Right Arm] Pulse Oximetry 97 Oxygen Delivery Method Room Air Sepsis Recent Fever Within 48 Hours Sepsis New/Unexplained Change in Mental Status Sepsis Action Taken by Nursing Laboratory Data 09/27/23 13:27 09/27/23 15:15 Lab Results 09/27/23 09/27/23 Range/Units 13:27 15:15 WBC 6.17 (4.8-10.8) K/ul RBC 4.94 (4.70-6.10) M/uL Hgb 16.4 (14.0-18.0) g/dl Hct 47.0 (42.0-52.0) % MCV 95.1 (80.0-100.0) fL MCH 33.2 (25.0-34.0) pg MCHC 34.9 (32.0-36.0) g/dL RDW Std Deviation 46.9 H (36.4-46.3) fL RDW Coeff of Michelle 13.4 (11.5-14.5) % Plt Count 185 (130-400) K/uL MPV 10.3 (9.4-12.4) fL Immature Gran % (Auto) 0.5 % Neut % (Auto) 66.0 % Lymph % (Auto) 22.4 % [place] % (Auto) 8.6 % Eos % (Auto) 1.9 % Baso % (Auto) 0.6 % Neut # (Auto) 4.07 (1.40-6.50) K/uL Lymph # (Auto) 1.38 (1.20-3.40) K/uL [place] # (Auto) 0.53 (0.11-0.59) K/uL Eos # (Auto) 0.12 (0.00-0.50) K/uL Baso # (Auto) 0.04 (0.00-0.20) K/uL Immature Gran # (Auto) 0.03 (0.01-0.20) K/uL PT 11.2 (9.0-12.0) Seconds INR 1.0 (0.9-1.1) APTT 33 H (21-31) Seconds PTT Ratio 1.2 Sodium 138 (136-145) mmol/L Potassium 4.4 (3.5-5.1) mmol/L Chloride 106 (98-107) mmol/L Carbon Dioxide 26 (21-32) mmol/L Anion Gap 6 (3-11) BUN 13 (6-23) mg/dl Creatinine 1.17 (0.6-1.4) mg/dl Est Cr Clr Drug Dosing 57.2 ml/min Est GFR ( Amer) 69.3 ml/min Est GFR (Non-Af Amer) 59.8 ml/min BUN/Creatinine Ratio 11.1 (10-20) Glucose 109 H (70-99(Fasting)) mg/dl Calcium 9.5 (8.6-10.3) mg/dl Total Bilirubin 1.3 H (0.2-1.0) mg/dl AST 26 (13-39) U/L ALT 25 (7-52) U/L Alkaline Phosphatase 83 (34-104) U/L Troponin I High Sens 10.6 (0-20) pg/ml Total Protein 7.8 (6.0-8.3) gm/dl Albumin 4.4 (3.4-5.0) gm/dl Globulin 3.4 (2.5-4.0) gm/dl Albumin/Globulin Ratio 1.3 (0.9-2) Administered Medications Discontinued Medications Sodium Chloride (Nss) 500 mls @ 999 mls/hr IV .Q31M ONE Stop: 09/27/23 15:50 Last Infusion: 09/27/23 16:50 Dose: Infused Documented By: Admin: 09/27/23 15:31 Dose: 999 mls/hr Documented By: PHIL Labetalol HCl (Labetalol Hcl Iv 5 Mg/Ml 20ml) 10 mg IV NOW STA Stop: 09/27/23 16:34 Last Admin: 09/27/23 16:49 Dose: 10 mg Documented By: MILESK Co-signed By: EVA Lorazepam (Lorazepam 0.5 Mg Tab) 0.5 mg PO NOW STA Stop: 09/27/23 17:48 Last Admin: 09/27/23 18:00 Dose: 0.5 mg Documented By: PHIL Imaging Data Radiologist's Impression: Chest X-Ray 09/27/23 12:57 XR chest 1V portable CLINICAL HISTORY: Chest pain, nonspecific TECHNIQUE: Single frontal radiograph of the chest was obtained. Comparison: Comparison is made to chest radiograph 09/06/2023 FINDINGS: Bilateral shoulder arthroplasties are seen. The cardiomediastinal silhouette is normal. The lungs are clear. No evidence of pleural effusion or pneumothorax. IMPRESSION: No acute chest disease. ACT 112: Negative or not required by law. Electronically signed by: Elio Langford M.D. 09/27/2023 3:18 PM Discharge Plan Visit Data Chief Complaint: Referred by Doctor Stated Complaint: STINT IN LEG, HYPERTENSION ED Provider: Sampson Smith Discharge Problem: HTN (hypertension), Dizziness, Elevated glucose Forms Stand Alone Forms: My [facility] Prescriptions Prescriptions: No Action allopurinol 100 mg tablet 100 mg PO BID metoprolol succinate 25 mg tablet extended release 24 hr 25 mg PO BID Eliquis 5 mg Tablet 5 mg PO BID Qty: 60 11RF Align 4 mg Capsule 4 mg PO QAM multivitamin Tablet 1 tab PO QAM atorvastatin 20 mg tablet 20 mg PO QPM trazodone 50 mg tablet 50 mg PO HS losartan 100 mg tablet 100 mg PO QAM pantoprazole 40 mg tablet,delayed release (DR/EC) 40 mg PO QAM clopidogrel 75 mg Tablet 75 mg PO QAM Qty: 30 3RF oxycodone-acetaminophen 5-325 mg Tablet 1 - 2 tab PO Q4H PRN (Reason: pain) Qty: 10 0RF Referrals Referrals: Martell Cantu [Primary Care Provider] - Discharge Problem: HTN (hypertension) Qualifiers: Hypertension type: unspecified Qualified Code(s): I10 - Essential (primary) hypertension
[2023-09-27 15:55] LABS: Albumin Globulin Ratio 1.3 (0.9-2); Albumin Level 4.4 gm/dl (3.4-5.0); BUN Creatinine Ratio 11.1 (10-20); Bilirubin,Total 1.3 mg/dl (0.2-1.0); Calcium 9.5 mg/dl (8.6-10.3); Creatinine Clr Calc Pharmacy 57.2 ml/min; Est GFR (African American) 69.3 ml/min; Est GFR (Non-African American) 59.8 ml/min; Globulin 3.4 gm/dl (2.5-4.0); Potassium 4.4 mmol/L (3.5-5.1); Total Protein 7.8 gm/dl (6.0-8.3)
[2023-09-27 16:01] LABS: Troponin I High Sensitivity 10.6 pg/ml (0-20)
[2023-09-27 16:10] LABS: Partial Thromboplastin Ratio 1.2; Partial Thromboplastin Time 33 Seconds (21-31); Prothrombin Time 11.2 Seconds (9.0-12.0)
[2023-09-27] MEDS: LABETALOL HCL IV 5 MG/ML 20ML IV STA (16:49)
--- NOTE | 2023-09-27 16:52 | Electrocardiogram Report ---
Test Reason : Blood Pressure : / mmHG Vent. Rate : 083 BPM Atrial Rate : 083 BPM P-R Int : 140 ms QRS Dur : 090 ms QT Int : 366 ms P-R-T Axes : 044 034 076 degrees QTc Int : 430 ms Normal sinus rhythm Diffuse Nonspecific ST abnormality Abnormal ECG When compared with ECG of 06-SEP-2023 11:52, No significant change was found Confirmed by Dre Iniguez ([id number]) on 09/27/2023 4:52:31 PM Referred By: Confirmed By:Dre Iniguez
[2023-09-27] MEDS ORDERED: ALUMINUM/MAGNESIUM SUSP 30 ML UDC PO PRN (17:41)
[2023-09-27] MEDS ORDERED: ACETAMINOPHEN 325 MG TAB PO PRN (17:41)
[2023-09-27] MEDS ORDERED: POLYETHYLENE (MIRALAX) 17 GM PACK PO PRN (17:41)
[2023-09-27] MEDS ORDERED: MELATONIN 3 MG TAB PO PRN (17:41)
[2023-09-27] MEDS ORDERED: ONDANSETRON INJ 2 MG/ML 2 ML VIAL IV PRN (17:41)
[2023-09-27] MEDS: LORazepam 0.5 MG TAB PO STA (18:00)
--- NOTE | 2023-09-27 18:04 | History & Physical Report ---
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 Since then he has been feeling tired and rundown. He denies any new chest pain or shortness of breath. No belly pain nausea vomiting or diarrhea. He notes when he bends over he gets lightheaded which has been occurring for quite some time. He notes that he cut the grass yesterday and was actually feeling better but he got his blood pressure cuff and started taking his blood pressure today ans it was very high, he denies headache or dizziness, no blurred vision, he takes Losartan and Metoprolol 25 mg bid, compliant with home meds , in ER SBP above 200, was given IV Labetalol, last BP 190/111 Allergies Allergy/AdvReac Type Severity Reaction Status Date / Time indomethacin AdvReac Unknown Anxiety Verified 09/27/23 17:43 Home Medications Medication Instructions Recorded Confirmed Type atorvastatin 20 mg tablet 20 mg PO QPM 04/18/21 09/27/23 History multivitamin 1 tab PO QAM 04/18/21 09/27/23 History trazodone 50 mg tablet 50 mg PO HS 04/18/21 09/27/23 History allopurinol 100 mg tablet 100 mg PO BID 09/14/22 09/27/23 History metoprolol succinate 25 mg 25 mg PO BID 09/14/22 09/27/23 History tablet,extended release 24 hr apixaban 5 mg tablet (Eliquis) 5 mg PO BID #60 tabs 09/19/22 09/27/23 Rx Bifidobacterium infantis 4 mg 4 mg PO QAM 05/23/23 09/27/23 History capsule (Align) pantoprazole 40 mg tablet,delayed 40 mg PO QAM 08/31/23 09/27/23 History release clopidogrel 75 mg tablet 75 mg PO QAM #30 tabs 09/15/23 09/27/23 Rx oxycodone-acetaminophen 5 mg-325 1 - 2 tab PO Q4H PRN pain #10 tabs 09/15/23 09/27/23 Rx mg tablet losartan 100 mg tablet 100 mg PO QAM 09/27/23 09/27/23 History Past Med/Surg History Problem List (Updated 09/14/23 @ 15:34 by Taurus Chow MD) Hypertension Aneurysm of left popliteal artery Intestinal metaplasia of stomach Hematochezia Lesion of gingiva DVT prophylaxis Acute GI bleeding (Acute) Unstable angina (Acute) ST segment depression (Acute) Palpitations (Acute) DJD of right shoulder History of hypertension Seasonal allergies Heart disease S/P femoral-popliteal bypass surgery Left fem-pop bypass (09/16/22): Grade view 1, MAC#3, ETT 7.5 at [facility] Hyperlipidemia Hypertension Medical History 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 > s/p Left fem-pop bypass 09/16/22 at [facility] History of myocardial infarction "Incidental finding" of possible previous heart attack per patient, no definitive hx or cardiac issues History of prostate cancer (~2005) s/p prostatectomy Hx of gastritis Hx of gout Hyperlipidemia Hypertension Seasonal allergies Surgical History History of hernia surgery History of prostatectomy (~2005) History of shoulder surgery Rx1, Lx1 ("Metal cap to replace joint on both shoulders") Hx of bilateral cataract extraction Hx of colonoscopy with polypectomy Hx of esophagogastroduodenoscopy S/P femoral-popliteal bypass surgery Left fem-pop bypass (09/16/22): Grade view 1, MAC#3, ETT 7.5 at [facility] Family History Brother Family history of colon cancer Other Cancer No family history of adverse response to anesthesia No family history of bleeding disorder Stroke Social History Smoking Status: Never smoker Second Hand Exposure: No; Do You Dip or Chew Tobacco: No; Hx Alcohol Use: Yes Alcohol type: beer Hx Substance Use: No Preferred Language: Korean Communication Ability: Effective Seaming Inspector Required: No Beliefs That Will Affect Care: None Current Living Situation: Alone Feels Safe at Home: Yes Assistive Devices: Cane Review of Systems Review of Systems: All systems reviewed & are unremarkable except as noted in HPI & below Physical Exam Physical Exam: head atraumatic, normocephalic neck supple, no JVD chest CTA b/l heart S1S2 regular abdomen soft, nt, nd , bs present extremities no clubbing, no cyanosis neuro AAO times 3, no focal deficit Results & Data Results & Data Vital Signs (Past 12 Hours) Vital Signs Temp Pulse Pulse Resp BP BP Pulse Ox 09/27/23 17:15 187/123 H 09/27/23 17:15 71 19 99 09/27/23 17:10 76 20 100 09/27/23 17:05 75 16 99 09/27/23 17:05 198/112 H 09/27/23 17:00 198/131 H 09/27/23 17:00 77 18 99 09/27/23 16:55 72 17 99 09/27/23 16:49 81 191/112 H 09/27/23 16:48 81 16 96 09/27/23 16:48 77 18 191/112 H 99 09/27/23 16:30 194/122 H 09/27/23 16:30 75 18 99 09/27/23 16:00 198/111 H 09/27/23 16:00 76 20 98 09/27/23 15:45 75 09/27/23 15:34 77 20 99 09/27/23 12:53 36.2 C L 88 19 174/103 H 97 O2 Del Method 09/27/23 17:15 09/27/23 17:15 09/27/23 17:10 09/27/23 17:05 09/27/23 17:05 09/27/23 17:00 09/27/23 17:00 09/27/23 16:55 09/27/23 16:49 09/27/23 16:48 09/27/23 16:48 Room Air 09/27/23 16:30 09/27/23 16:30 09/27/23 16:00 09/27/23 16:00 09/27/23 15:45 09/27/23 15:34 09/27/23 12:53 Room Air Laboratory Results Abnormal lab results 09/27/23 09/27/23 Range/Units 13:27 15:15 RDW Std Deviation 46.9 H (36.4-46.3) fL APTT 33 H (21-31) Seconds Glucose 109 H (70-99(Fasting)) mg/dl Total Bilirubin 1.3 H (0.2-1.0) mg/dl ECG Additional Comments: Normal sinus rhythm Diffuse Nonspecific ST abnormality Abnormal ECG When compared with ECG of 06-SEP-2023 11:52, No significant change was found PG Care Time/CCT Total # of Minutes Spent Total Time Spent with Patient: Total time spent is greater than 50% in coordination of care (as documented) at patient's floor/unit and/or counseling patient: Coding Level of Care Code 25525 INT INP/OBS CARE 2/55MIN Diagnoses Hypertension I10 Hyperlipidemia E78.5 Aneurysm of left popliteal artery I72.4
[2023-09-27] MEDS: cloNIDine HCL 0.1 MG TAB PO PRN (21:34)
[2023-09-27] MEDS: ATORVASTATIN 20 MG TAB PO SCH (23:18)
[2023-09-27] MEDS: APIXABAN 5 MG TABLET PO SCH (23:18)
[2023-09-27] MEDS: allopurinoL 100 MG TAB PO SCH (23:19)
[2023-09-27] MEDS: traZODone HCL 50 MG TAB PO SCH (23:19)
[2023-09-28 05:26] LABS: Basophils # (auto) 0.03 K/uL (0.00-0.20); Basophils % (auto) 0.4 %; Eosinophils # (auto) 0.26 K/uL (0.00-0.50); Eosinophils % (auto) 3.9 %; Hematocrit (blood only) 40.6 % (42.0-52.0); Hemoglobin 14.2 g/dl (14.0-18.0); Immature Granulocytes # (auto) 0.02 K/uL (0.01-0.20); Immature Granulocytes % (auto) 0.3 %; Lymphocytes # (auto) 1.85 K/uL (1.20-3.40); Lymphocytes % (auto) 27.7 %; Mean Corpuscular Hemoglobin 33.6 pg (25.0-34.0); Mean Platelet Volume 9.8 fL (9.4-12.4); Monocytes # (auto) 0.72 K/uL (0.11-0.59); Monocytes % (auto) 10.8 %; Neutrophils # (auto) 3.79 K/uL (1.40-6.50); Neutrophils % (auto) 56.9 %; Platelet Count 159 K/uL (130-400); RDW Coefficient of Variation 13.4 % (11.5-14.5); RDW Standard Deviation 47.5 fL (36.4-46.3); Red Blood Count 4.23 M/uL (4.70-6.10); White Blood Count 6.67 K/ul (4.8-10.8)
[2023-09-28 05:38] LABS: BUN Creatinine Ratio 12.4 (10-20); Calcium 8.2 mg/dl (8.6-10.3); Creatinine Clr Calc Pharmacy 59.2 ml/min; Est GFR (African American) 72.3 ml/min; Est GFR (Non-African American) 62.4 ml/min; Potassium 3.6 mmol/L (3.5-5.1)
[2023-09-28] MEDS: carvediloL 6.25 MG TAB PO SCH (08:56)
[2023-09-28] MEDS: LOSARTAN POTASSIUM 50 MG TAB PO SCH (08:56)
[2023-09-28] MEDS: CLOPIDOGREL BISULFATE 75 MG TAB PO SCH (08:56)
[2023-09-28] MEDS: PANTOprazole 40 MG TAB PO SCH (08:56)
--- NOTE | 2023-09-28 16:53 | Discharge Summary ---
Date of Service September 28, 2023 Admission HPI Per Admitting Provider 78-year-old male who presents ER with a past medical history of hypertension, hyperlipidemia and heart disease, right popliteal stent placed 2 weeks ago. Since then he has been feeling tired and rundown. He denies any new chest pain or shortness of breath. No belly pain nausea vomiting or diarrhea. He notes when he bends over he gets lightheaded which has been occurring for quite some time. He notes that he cut the grass yesterday and was actually feeling better but he got his blood pressure cuff and started taking his blood pressure today ans it was very high, he denies headache or dizziness, no blurred vision, he takes Losartan and Metoprolol 25 mg bid, compliant with home meds , in ER SBP above 200, was given IV Labetalol, last BP 190/111 Principal Diagnosis Hypertensive urgency Discharge Exam PHYSICAL EXAMINATION Last 24h vital signs reviewed, see documentation in flowsheet General: comfortable appearing, no distress HEENT: Normocephalic, atraumatic, pupils round and equal, sclerae anicteric, no conjunctival injection, moist mucus membranes Lungs: Normal respiratory effort. Clear to auscultation bilaterally. No RRW Heart: Regular rate and rhythm, no murmurs. No JVD Abdomen: Soft, nontender, nondistended. Bowel sounds present. Extremities: Warm, dry, well-perfused. No extremity edema. Neuro: Alert and oriented x 4, face symmetric, moves 4 extremities well Psych: Normal affect and behavior Discharge Data Allergies Allergy/AdvReac Type Severity Reaction Status Date / Time indomethacin AdvReac Unknown Anxiety Verified 09/27/23 17:43 Consultations 09/27/23 16:34 ED Decision to Admit Stat Ordered Studies Chest X-Ray 09/27/23 12:57 XR chest 1V portable CLINICAL HISTORY: Chest pain, nonspecific TECHNIQUE: Single frontal radiograph of the chest was obtained. Comparison: Comparison is made to chest radiograph 09/06/2023 FINDINGS: Bilateral shoulder arthroplasties are seen. The cardiomediastinal silhouette is normal. The lungs are clear. No evidence of pleural effusion or pneumothorax. IMPRESSION: No acute chest disease. ACT 112: Negative or not required by law. Electronically signed by: Elio Langford M.D. 09/27/2023 3:18 PM 09/28/23 05:09 09/28/23 05:09 Hospital Course (1) Hypertension: (2) Hyperlipidemia: (3) Aneurysm of left popliteal artery: Plan 78 yo male with h/o PAD, L fem/pop bypass, R popliteal stent two weeks ago came to ED with lightheadedness, malaise and elevated blood pressure. Initial BPs in ED were as high as 199/113, 174/119. He was treated with IV labetalol and BP improved to 160s. He did not have any chest pain, dyspnea, or neurologic symptoms. At admission his losartan was resumed and his metoprolol was replaced with carvedilol 6.25 mg bid. With that change, BP came under good control and was normal through the night. He feels better - no lightheadedness and feels well today. Chronic/stable issues: # CAD - continue home meds, denies any chest pain or dyspnea, troponin negative, EKG unchanged from previous # PAD - hx L fem/pop, recent endovascular repair of right popliteal artery aneurysm, continue plavix and apixaban and follow up with Dr. Chow as scheduled next week. # Hyperlipidemia, continue statins # CKD 2-3 - renal function remained at his baseline Total Time Total Time Spent Total Time Spent (In Minutes): <30 minutes Discharge Plan Discharge Items Patient Disposition: Home - Self-Care Reason For Visit: HTN Discharge Diagnosis: Hypertensive urgency Activity: Resume your previous activity Non-emergency contact: Primary Care Provider and Surgeon Call non-emergency contact if: your symptoms worsen Follow-up/Referrals: Martell Cantu [Primary Care Provider] - Taurus Chow MD [Physician] - Diet: Heart Healthy and Low Sodium (2gm) Addtl Attending Provider Instructions: You were treated for severely elevated blood pressure Your blood pressure improved with stopping metoprolol and replacing it with carvedilol Follow up with your primary care doctor in 1-2 weeks to check on your blood pressure Monitor your blood pressure with home cuff - make sure you're sitting at rest for at least 2 minutes, your arm is relaxed and resting on a table near the level of your heart -call your doctor if your BP is >180/100 -seek care in the ED if your BP is >200/110 and/or if you have any symptoms such as chest pain, shortness of breath, lightheadedness, headache, or stroke-like symptoms (see below) Follow up with Dr. Chow as scheduled Addtl Operations Support Specialist Provider Instructions: Medical Emergencies: Call 911 immediately if you experience any of the following warning signs and symptoms of Stroke: * Sudden numbness or weakness of the face, arm or leg, especially on one side of the body * Sudden confusion, trouble speaking or understanding * Sudden trouble seeing in one or both eyes * Sudden trouble walking, dizziness, loss of balance or coordination * Sudden severe headache with no cause Do not delay calling 911 if you experience any warning signs or symptoms of a stroke. Delay in seeking medical attention may affect what treatments can be given to you. . Pending Studies at Discharge: No Stand-Alone Forms: My [facility], Smoking Cessation Medications and DC Order Prescriptions: New carvedilol 6.25 mg Tablet 6.25 mg PO BIDM Qty: 60 0RF Continued allopurinol 100 mg tablet 100 mg PO BID Eliquis 5 mg Tablet 5 mg PO BID Qty: 60 11RF Align 4 mg Capsule 4 mg PO QAM multivitamin Tablet 1 tab PO QAM atorvastatin 20 mg tablet 20 mg PO QPM trazodone 50 mg tablet 50 mg PO HS losartan 100 mg tablet 100 mg PO QAM pantoprazole 40 mg tablet,delayed release (DR/EC) 40 mg PO QAM clopidogrel 75 mg Tablet 75 mg PO QAM Qty: 30 3RF oxycodone-acetaminophen 5-325 mg Tablet 1 - 2 tab PO Q4H PRN (Reason: pain) Qty: 10 0RF Discontinued metoprolol succinate 25 mg tablet extended release 24 hr 25 mg PO BID Discharge Orders: Discharge Order (Routine); Ordered 09/28/23 Ordered By: Nida Bourne/Other Patient Handouts: Hypertension Dc Admission Data Admit Date/Time: 09/27/23 17:41 Attending Provider: Nida Reynoso Admit Provider: Kia James Primary Care Provider: Martell Cantu Other Providers: Kia James Other Interventions: Discharge Summary Assessment (RN) Last Done: 09/28/23 13:28 Coding Level of Care Code 98362 IN/OBS DISCH 30 MIN/LESS Diagnoses Hypertension I10 Hyperlipidemia E78.5 Aneurysm of left popliteal artery I72.4
== END 2023-09-28 13:33 | disposition home or self-care (01) ==
LOC: EDINP 12:45 → ED 12:45 → SUATTDRO 17:41 → EDINP 20:35